=== PATIENT | female | born 1950 | race Caucasian/White ===

== ENCOUNTER 2020-06-04 06:43 | Outpatient (REF) | payer MEDICARE, MEDICAID, SELFPAY ==
[2020-06-04 09:30] LABS: Alanine Aminotransferase 31 U/L (0-31); Albumin Level 4.1 g/dL (3.5-5.0); Alkaline Phosphatase 101 U/L (39-117); Anion Gap 14 (12-20); Aspartate Amino Transferase 48 U/L (5-31); Blood Urea Nitrogen 18 mg/dL (9-16); Carbon Dioxide 29 mmol/L (22-29); Chloride 102 mmol/L (96-108); Cholesterol 114 mg/dL; Estimated Glomerular Filt Rate 30; Glucose Fasting 87 mg/dL (60-99); HDL Cholesterol 56 mg/dL; LDL Cholesterol Calculated 40 mg/dl; Sodium 141 mmol/L (135-145); Total Protein 7.3 g/dL (6.5-8.0); Triglycerides 94 mg/dL
[2020-06-04 09:50] LABS: Vitamin D 25-OH Total 51.7 ng/mL (>30)
== END 2020-06-04 06:44 | disposition home or self-care (01) ==
LOC: HO.LAB 06:43
PROVIDERS: Absent Provider Internal Medicine; PCP Internal Medicine; Visit Provider Internal Medicine Medical Oncology
DX: I15.1 Hypertension secondary to other renal disorders (principal); E78.00 Pure hypercholesterolemia, unspecified; E55.9 Vitamin D deficiency, unspecified; C18.9 Malignant neoplasm of colon, unspecified
CPT/HCPCS: 36415; 80053; 80061; 82306; 82378; 85025

== ENCOUNTER 2020-06-05 16:07 | Outpatient (REF) | payer MEDICARE, MEDICAID, SELFPAY ==
--- NOTE | 2020-06-05 16:13 | MM_ITS ---
EXAMINATION: MM SCREENING DIGITAL BREAST TOMOSYNTHESIS, BILATERAL CLINICAL INFORMATION: Screening. Asymptomatic. The lifetime risk of breast cancer based on the Tyrer-Cuzick Model is unable to be calculated due to lack of complete information. COMPARISON: Mammography: 10/14/18, 10/13/17, 10/09/16, 10/26/15 TECHNIQUE: Digital breast tomosynthesis is performed in both the craniocaudal and mediolateral oblique views along with computer-aided detection (CAD). Synthesized 2D images are generated from the tomosynthesis. FINDINGS: The breasts are heterogeneously dense, which may obscure small masses (ACR BI-RADS breast composition Category c). Right breast: There is no suspicious mass. No architectural distortion. No suspicious calcification. Left breast: There is a 1.2 cm equal density mass with 2 coarse calcifications immediately behind the left nipple. No suspicious interval change. No new suspicious left breast finding MM/MM tomosynthesis screening BI IMPRESSION: No mammographic evidence of malignancy. No suspicious interval change ASSESSMENT: BI-RADS 2: Benign RECOMMENDATION: Routine annual mammography screening. This patient's information was entered into a reminder system with a target due date for their next mammogram.
== END 2020-06-05 16:08 | disposition home or self-care (01) ==
LOC: HO.MAMMO 16:07
PROVIDERS: PCP Internal Medicine; Visit Provider Internal Medicine
DX: Z12.31 Encounter for screening mammogram for malignant neoplasm of breast (principal)
CPT/HCPCS: 77063; 77067

== ENCOUNTER 2020-10-04 09:19 | Outpatient (REF) | payer MEDICARE, MEDICAID, SELFPAY ==
--- NOTE | ~2020-10-04 | FL_ITS ---
EXAMINATION: XR PORT INJECTION WITH RADIOLOGICAL SUPERVISION AND INTERPRETATION CLINICAL INFORMATION: Port check COMPARISON: March 09, 2018 TECHNIQUE: Port catheter injection FINDINGS: Informed consent was obtained from the patient prior to the procedure. During this process, the procedure and potential alternatives were explained, along with the intended outcome and benefits. The risks of the procedure, as well as the risk of not doing the procedure, were discussed. The patient was given the opportunity to ask questions regarding the procedure and appeared competent to make medical decisions. A signed consent form which documents this discussion was placed in the medical record. . Using sterile technique a Aracelis needle was placed into the right internal jugular port catheter reservoir. Blood aspirated freely without evidence of occlusion. The port catheter was then flushed with 8 mL of heparinized saline at a concentration of 100 units of heparin per milliliter. FL/FL cva device check w fluoro IMPRESSION: Right internal jugular port check demonstrating catheter having good blood return.
== END 2020-10-04 09:20 | disposition home or self-care (01) ==
LOC: HO.XRAY 09:19
PROVIDERS: PCP Internal Medicine; Visit Provider Internal Medicine Medical Oncology
DX: Z45.2 Encounter for adjustment and management of vascular access device (principal)
CPT/HCPCS: 36598

== ENCOUNTER 2020-12-06 07:09 | Outpatient (REF) | payer MEDICARE, MEDICAID, SELFPAY ==
[2020-12-06 08:41] LABS: MANUAL DIFF FLAG NO
[2020-12-06 08:44] LABS: Basophils Absolute Auto 0.1 X10*3/uL (0.0-0.2); Basophils Percent Auto 0.9 % (0-2); Eosinophils Absolute Auto 0.6 X10*3/uL (0.0-0.4); Eosinophils Percent Auto 11.2 % (0-4); Hemoglobin 12.1 g/dl (12.0-16.0); Imm Gran Abs Auto 0.01 X10*3/uL (0.00-0.03); Imm Gran Pct Auto 0.2 % (0.0-0.4); Lymphocytes Absolute Auto 1.5 X10*3/uL (1.2-4.9); Lymphocytes Percent Auto 25.4 % (20-40); Mean Corpuscular HGB Conc 32.7 g/dl (31.0-35.0); Mean Corpuscular Hemoglobin 30.8 pg (27.0-33.0); Mean Corpuscular Volume 94.1 fL (80-98); Mean Platelet Volume 11.1 fL (9.4-12.3); Monocytes Absolute Auto 0.6 X10*3/uL (0.1-1.2); Monocytes Percent Auto 10.7 % (2-11); Neutrophils Percent Auto 51.6 % (45-73); Platelet Count 165 X10*3/uL (160-400); Red Blood Count 3.93 X10*6/uL (4.20-5.50); Red Cell Distribution Width 13.2 % (11.0-16.0); White Blood Count 5.7 X10*3/uL (4.8-10.8)
[2020-12-06 09:15] LABS: Alanine Aminotransferase 11 U/L (0-31); Albumin Level 3.8 g/dL (3.5-5.0); Alkaline Phosphatase 67 U/L (39-117); Anion Gap 13 (12-20); Aspartate Amino Transferase 18 U/L (5-31); Blood Urea Nitrogen 13 mg/dL (9-16); Calcium 9.1 mg/dL (8.4-10.2); Carbon Dioxide 30 mmol/L (22-29); Chloride 103 mmol/L (96-108); Cholesterol 101 mg/dL; Estimated Glomerular Filt Rate 27; Glucose Random 102 mg/dL (60-115); HDL Cholesterol 55 mg/dL; LDL Cholesterol Calculated 36 mg/dl; Potassium 2.8 mmol/L (3.3-5.1); Sodium 143 mmol/L (135-145); Total Protein 6.7 g/dL (6.5-8.0); Triglycerides 52 mg/dL
== END 2020-12-06 07:10 | disposition home or self-care (01) ==
LOC: HO.LAB 07:09
PROVIDERS: Internal Medicine Medical Oncology; PCP Internal Medicine; Visit Provider Internal Medicine
DX: C18.9 Malignant neoplasm of colon, unspecified (principal); E78.00 Pure hypercholesterolemia, unspecified; E78.5 Hyperlipidemia, unspecified
CPT/HCPCS: 36415; 80053; 80061; 82378; 85025

== ENCOUNTER → 2021-02-21 08:52 | Outpatient (BNVA) | payer MEDICARE, MEDICAID, SELFPAY | PROVIDERS: PCP Internal Medicine; Visit Provider Internal Medicine | DX: I48.19 Other persistent atrial fibrillation (principal); I25.10 Atherosclerotic heart disease of native coronary artery without angina pectoris; I35.8 Other nonrheumatic aortic valve disorders; I10 Essential (primary) hypertension; E78.00 Pure hypercholesterolemia, unspecified | CPT/HCPCS: 99212 ==

== ENCOUNTER 2021-02-26 15:48 | Outpatient (REF) | payer MEDICARE, MEDICAID, SELFPAY ==
--- NOTE | ~2021-02-26 | US_ITS ---
EXAMINATION: US VENOUS ULTRASOUND WITH DOPPLER LOWER EXTREMITY, LEFT CLINICAL INFORMATION: Left ankle and foot swelling. COMPARISON: None TECHNIQUE: Ultrasound of the deep veins is performed from the hip to the calf with compression sonography and color and pulse Doppler assessment. Spectral analysis with color-flow imaging is performed. FINDINGS: There is normal venous compression and respiratory variation and augmented flow. The visualized common femoral vein, superficial femoral vein, profunda femoral vein, popliteal vein, and the trifurcation region shows no evidence of deep venous thrombosis. There is no significant popliteal fossa cyst. US/US venous duplex LE LT IMPRESSION: No DVT demonstrated in the left lower extremity.
--- NOTE | ~2021-02-26 | XR_ITS ---
EXAMINATION: XR FOOT, LEFT CLINICAL INFORMATION: Other specific soft tissue disorders. COMPARISON: None. TECHNIQUE: AP, lateral, and oblique views of the left foot. FINDINGS: Mild degenerative spurring at the dorsal midfoot. No acute fracture or dislocation. No lytic or blastic osseous lesion. Plantar calcaneal spur. 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 Plantar calcaneal spur.
== END 2021-02-26 15:49 | disposition home or self-care (01) ==
LOC: HO.US 15:48
PROVIDERS: PCP Internal Medicine; Visit Provider Nurse Practitioner Family
DX: R60.0 Localized edema (principal); M79.89 Other specified soft tissue disorders; M25.472 Effusion, left ankle
CPT/HCPCS: 73620; 93971

== ENCOUNTER → 2021-02-27 07:05 | Outpatient (REF) | payer MEDICARE, MEDICAID, SELFPAY ==
--- NOTE | 2021-02-27 07:12 | CA_ITS ---
Transthoracic Echocardiogram Patient (Last, First, Middle): Tonya Nieves, Gender: Female Date of : 1950 Age: 70 Procedure Date: 02/27/2021 Procedure Type: Transthoracic Echocardiogram Location: OP Height: 149.86 cm Weight: 42.64 kg BSA: 1.34 m2 Heart Rate: bpm BP: 120 / 60 mmHg Marketing Traffic Coordinator: ANDRE Referring MD: Sav Juarez MD Symptoms: I48.19 - Other persistent atrial fibrillation Study Quality: Good Conclusions: - 1. Normal LV systolic function 2. Moderate biatrial enlargement 3. Calcific aortic valve changes noted with mild aortic regurgitation probably early mild aortic stenosis 4. Moderate mitral and calcification next 5. Borderline RV systolic pressure 6. No gross pericardial effusion Findings Left Ventricle Normal left ventricular size, thickness, and systolic function. The visually estimated ejection fraction is between 60-65%. Diastolic function is indeterminate on the basis of available data. Right Ventricle Normal right ventricular cavity size and systolic function. Atria The left atrium is moderately dilated. There is no evidence of interatrial shunt. The right atrium is moderately dilated. Aortic Valve There is mild calcification of the aortic valve. There is moderate thickening of the aortic valve. There is mild aortic valve regurgitation. Mitral Valve There is mild anterior and posterior mitral leaflet thickening. There is moderate mitral annular calcification. There is trace mitral valve regurgitation. There is no mitral valve stenosis. Pulmonic Valve The pulmonic valve was not well visualized. Tricuspid Valve Likely normal tricuspid valve structure and function. There is mild tricuspid valve regurgitation. There is no evidence of pulmonary hypertension. Great Vessels All visible segments of the aorta are normal in size. Venous The inferior vena cava is normal in size and collapses greater than 50% with inspiration. Pericardium/Pleural There is no evidence of pericardial effusion. Prior Study Comparison Changes noted compared to prior study dated: 06/01/2018. Patient in atrial fibrillation on this study. Measurements 2D Linear Measurements IVSd: 0.93 0.6-0.9/0.6-1.0 cm LVIDd: 3.61 3.9-5.3/4.2-5.9 cm LVIDd Index: 2.69 2.4-3.2/2.2-3.1 cm/m2 LVIDs: 2.18 2.0-3.6 cm LVPWd: 0.91 0.7-1.1 cm Ao Root: 3.00 2.1-3.5 cm LA Diam: 3.20 2.7-3.8/3.0-4.0 cm LAIDs Index: 2.39 1.5-2.3 cm/m2 LV Mass: 119.61 67-162/88-224 g LV Mass Index: 89.26 43-95/49-115 g/m2 LVOT Diam: 1.90 3.0+(-)1.3 cm 2D Systolic Function EF 4C: 60.50 >55% EF 2C: 66.50 >55% EF BiP: 64.50 >55% Aortic Valve AoV Pk Hugo: 1.82 AoV Mn Hugo: 1.34 AoV VTI: 0.40 AoV Pk Grad: 13.00 Aov Mn Grad: 8.00 SHARON Cont.VTI: 1.35 AI Pk Hugo: 4.00 AI [place]: 2.73 LVOT LVOT Pk Hugo: 0.86 LVOT Mn Hugo: 0.62 LVOT VTI: 0.19 LVOT Pk Grad: 3.00 LVOT Mn Grad: 2.00 LVOT Diam: 1.90 LVOT Area: 2.84 Right Ventricle TAPSE (mm): 1.65 TVS' Hugo: 8.27 Tricuspid Valve TR Pk Hugo: 3.00 TR Pk Grad: 36.00 RA Press: 3.00 RVSP: 39.00 Great Vessels Aorta Ao Root-2D: 3.00 2.0-3.7 cm Ao Asc: 3.00 2.1-3.4 cm Updated in Other Vendor System with Status of Final Duane Campos MD electronically signed on 03/01/2021 9:19:16 AM with status of Final
--- NOTE | 2021-02-27 07:12 | HM_ITS ---
Total monitoring time 2 days and 17 hours. Underlying rhythm is atrial fibrillation. Min heart rate 79/Min. Maximum 138/min. Average 98/Min. About 23% of the time, rate greater than 100/Min. No AV blocks or pauses. Very rare PVCs. No patient events. Less than optimal rate control of atrial fibrillation. MTDD
== END ==
LOC: HO.CARD 07:05
PROVIDERS: PCP Internal Medicine; Visit Provider Internal Medicine
DX: I48.19 Other persistent atrial fibrillation (principal)
CPT/HCPCS: 93242; 93306

== ENCOUNTER 2021-03-16 02:36 | Emergency (ER) | payer MEDICARE, MEDICAID, SELFPAY ==
[2021-03-16 02:50] VITALS: BP 164/98; PULSE 105; RESP 18; TEMP 36; O2SAT 97; BMI 19.1
--- NOTE | 2021-03-16 03:18 | ED.GENADULT ---
HPI - General Adult General Chief complaint: Extremity Injury, Lower Stated complaint: Foot swelling Time Seen by Provider: 03/16/21 03:18 Source: patient and family Mode of arrival: ambulatory Limitations: no limitations History of Present Illness HPI narrative: Patient's history of gout used to be on allopurinol which was stopped about 6 months ago because of CKD with creatinine of 1.8 since then patient had 2 episodes of gouty arthritis today she comes with same pain started on the right greater toe started 3 days ago. Has some swelling of the right foot and pain no fever no chills no skin changes Related Data Home Medications Medication Instructions Recorded Confirmed calcitriol 0.25 mcg capsule 0.25 mcg PO DIRECTED 06/04/20 02/26/21 famotidine 20 mg tablet 20 mg PO DIRECTED 06/04/20 02/26/21 ergocalciferol (vitamin D2) 1,250 1,250 mcg PO QWEEK 10/17/20 02/26/21 mcg (50,000 unit) capsule Previous Rx's Medication Instructions Recorded amlodipine 5 mg tablet 5 mg PO DAILY #90 tab 07/28/20 metoprolol tartrate 50 mg tablet 50 mg PO BID 90 Days #180 tab 08/20/20 thiamine HCl (vitamin B1) 100 mg 50 mg PO DAILY 90 Days #45 tab 12/20/20 tablet rosuvastatin 10 mg tablet 10 mg PO DAILY #30 tab 01/18/21 donepezil 5 mg tablet 5 mg PO BEDTIME #90 tab 01/23/21 apixaban 2.5 mg tablet (Eliquis) 2.5 mg PO BID 90 Days #180 tab 02/21/21 prednisone 20 mg tablet 20 mg PO DAILY 5 Days #5 tab 02/26/21 diclofenac sodium 3 % topical gel 1 appl TOPICAL BID #100 g 03/16/21 prednisone 20 mg tablet 40 mg PO DAILY #10 tab 03/16/21 Allergies Allergy/AdvReac Type Severity Reaction Status Date / Time NSAIDS (Non-Steroidal AdvReac Severe CONTRAINDICATED Verified 02/26/21 15:00 Anti-Inflamma DUE TO [NSAIDS (NON-STEROIDAL ANEMIA ANTI-INFLAMMA] atorvastatin [From LIPITOR] AdvReac Intermediate MUSCLE PAIN Verified 02/26/21 15:00 Review of Systems Review of Systems: Yes all other systems are reviewed and are negative PMFSH Past Medical History Medical History Asthma CKD (chronic kidney disease) Colon cancer Dementia Essential hypertension GERD (gastroesophageal reflux disease) Hypokalemia Pure hypercholesterolemia Surgical History History of bilateral cataract extraction History of laparoscopy Family History Family History Father No problems noted. Mother No problems noted. Social History Social History Housing: Apartment Alcohol intake: never Patient Tobacco Use Status: Former Tobacco user Advance Directives: No service: No Current occupational status: retired and disabled Physical Exam Vital Signs: Vital Signs: Last Vital Signs Temp 96.8 F 03/16/21 02:50 Pulse 105 H 03/16/21 02:50 Resp 18 03/16/21 02:50 BP 164/98 H 03/16/21 02:50 Pulse Ox 97 03/16/21 02:50 Body Mass Index 19.1 Appearance: Alert. Oriented X3. No acute distress. Eyes: PERRLA, No Nystagmus ENT: Pharynx normal. Oral Mucosa moist Neck: Normal inspection. Neck supple. CVS: Normal heart rate and rhythm. Pulses normal. Respiratory: No respiratory distress. Equal air entry bilateral, Abdomen: Soft and nontender. Bowel sounds are present, Skin: Skin warm and dry. Normal skin color. Normal skin turgor. Extremities: No lower extremity edema. No calf tenderness tenderness with slight soft tissue swelling left greater toe at the MTP Neuro: Oriented X 3. Discharge Plan Discharge Clinical Impression: Gouty arthritis of great toe Patient Disposition: Home, Self-Care Instructions: Gout (ED) Additional Instructions: Take prednisone as prescribed Apply diclofenac gel locally twice daily Drink plenty of fluids Follow-up with your activity coordinator for further management Prescriptions: New prednisone 20 mg tablet 40 mg PO DAILY Qty: 10 RF: 0 diclofenac sodium 3 % gel 1 appl topical BID Qty: 100 RF: 0 No Action amlodipine 5 mg tablet 5 mg PO DAILY Qty: 90 RF: 3 metoprolol tartrate 50 mg tablet 50 mg PO BID 90 Days Qty: 180 RF: 3 thiamine HCl (vitamin B1) 100 mg tablet 50 mg PO DAILY 90 Days Qty: 45 RF: 1 rosuvastatin 10 mg tablet 10 mg PO DAILY Qty: 30 RF: 0 donepezil 5 mg tablet 5 mg PO BEDTIME Qty: 90 RF: 2 famotidine 20 mg tablet 20 mg PO DIRECTED RF: 0 calcitriol 0.25 mcg capsule 0.25 mcg PO DIRECTED RF: 0 prednisone 20 mg tablet 20 mg PO DAILY 5 Days Qty: 5 RF: 0 ergocalciferol (vitamin D2) 1,250 mcg (50,000 unit) capsule 1,250 mcg PO QWEEK RF: 0 Eliquis 2.5 mg tablet 2.5 mg PO BID 90 Days Qty: 180 RF: 4
[2021-03-16] MEDS: predniSONE 20 MG TABLET 40 MG PO (03:49)
--- NOTE | 2021-03-16 03:51 | PC.NURSE ---
pt was on allupurinol and was taken off by her pcp about 7 or 8 months ago due to her ckd. About 3 or 4 days ago she started having swelling and pain to her left foot.
== END 2021-03-16 04:07 | disposition home or self-care (01) ==
PROVIDERS: Emergency Provider Internal Medicine; PCP Internal Medicine
DX: M10.071 Idiopathic gout, right ankle and foot (principal); Z79.899 Other long term (current) drug therapy
CPT/HCPCS: 99283

== ENCOUNTER → 2021-03-21 09:41 | Outpatient (BNVA) | payer MEDICARE, MEDICAID, SELFPAY | PROVIDERS: PCP Internal Medicine; Visit Provider Internal Medicine | DX: I48.19 Other persistent atrial fibrillation (principal); I25.10 Atherosclerotic heart disease of native coronary artery without angina pectoris; I35.8 Other nonrheumatic aortic valve disorders; I10 Essential (primary) hypertension | CPT/HCPCS: 99212 ==

== ENCOUNTER 2021-04-18 07:25 | Outpatient (REF) | payer MEDICARE, MEDICAID, SELFPAY ==
[2021-04-18 09:05] LABS: Appearance Urine HAZY; Color Urine YELLOW; Glucose Urine UA NEG (NEG); Leukocyte Esterase Urine 2+ (NEG); Nitrite Urine POS (NEG); PH 6.5 (5.0-8.0); Urine Blood TRACE (NEG); Urine Ketones NEG (NEG); Urine Protein 1+ MG/DL (NEG-TRACE)
[2021-04-18 09:06] LABS: Hematocrit 41.1 % (37-47); Hemoglobin 13.5 g/dl (12.0-16.0); Mean Corpuscular HGB Conc 32.8 g/dl (31.0-35.0); Mean Corpuscular Hemoglobin 31.5 pg (27.0-33.0); Mean Corpuscular Volume 95.8 fL (80-98); Mean Platelet Volume 12.1 fL (9.4-12.3); Platelet Count 174 X10*3/uL (160-400); Red Blood Count 4.29 X10*6/uL (4.20-5.50); Red Cell Distribution Width 14.4 % (11.0-16.0); White Blood Count 5.4 X10*3/uL (4.8-10.8)
[2021-04-18 09:18] LABS: Bacteria Urine 3+ /LPF
[2021-04-18 09:19] LABS: Mucus Urine 1+ /LPF; Squamous Epithelial Cell Urine 1+ /LPF
[2021-04-18 09:26] LABS: Albumin Level 3.7 g/dL (3.5-5.0); Anion Gap 14 (12-20); Blood Urea Nitrogen 16 mg/dL (9-16); Calcium 8.9 mg/dL (8.4-10.2); Carbon Dioxide 30 mmol/L (22-29); Chloride 107 mmol/L (96-108); Estimated Glomerular Filt Rate 24; Magnesium 2.1 mg/dL (1.6-2.6); Phosphorus 3.2 mg/dL (2.7-4.5); Potassium 3.6 mmol/L (3.3-5.1); Sodium 147 mmol/L (135-145)
[2021-04-18 09:28] LABS: Creatinine Urine 183.81 mg/dL; Microalbum/Creatinine Ratio Ur 94.1 ug/mg cr; Protein/Creatinine Ratio, Ur 0.31 (<0.2); Total Protein Urine Random 57 mg/dL (<12)
[2021-04-18 09:46] LABS: Vitamin D 25-OH Total 59.5 ng/mL (>30)
[2021-04-19 15:51] LABS: Calcium (PTHI) 9.2 mg/dL (8.6-10.4); PTHI 228 pg/mL (14-64)
== END 2021-04-18 07:26 | disposition home or self-care (01) ==
LOC: HO.LAB 07:25
PROVIDERS: PCP Internal Medicine; Visit Provider Internal Medicine Nephrology
DX: N18.32 Chronic kidney disease, stage 3b (principal)
CPT/HCPCS: 36415; 80051; 81001; 82040; 82043; 82306; 82310; 82565; 83735; 83970; 84100; 84156; 84520; 85027; 87086

== ENCOUNTER 2021-05-06 01:49 | Emergency (ER) | payer MEDICARE, MEDICAID, SELFPAY ==
[2021-05-06 02:22] VITALS: BP 190/95; PULSE 93; RESP 18; TEMP 36.6; O2SAT 97; BMI 17.6
[2021-05-06 02:25] VITALS: BP 190/95; PULSE 94; RESP 18; TEMP 36.6; O2SAT 97
--- NOTE | 2021-05-06 03:24 | ED_ITS ---
HPI - General Adult General Chief complaint: General Medical Stated complaint: gout on both feet Time Seen by Provider: 05/06/21 03:16 Source: family () Mode of arrival: ambulatory Limitations: no limitations History of Present Illness HPI narrative: 71-year-old female who presents emergency department for evaluation bilateral feet pain. Patient has dimension the information comes from the patient's . According to the , the patient was on allopurinol but this was discontinued secondary to her renal function. The patient has had several episodes of gout in her feet since stopping the all opurinol. Patient was last seen in the emergency department on 03/16/2021 for gout of her feet. That time she was treated with prednisone and diclofenac 3% gel. The states that the prednisone seemed to be very effective, he is continue to use the gel however he thinks this is less effective. Over the past 2 days the patient has been complaining of pain in her feet left greater than right. She is now having difficulty walking secondary to her left foot pain. She has not been ill in any other way. The patient has dementia and cannot characterize her pain. Related Data Home Medications Medication Instructions Recorded Confirmed ergocalciferol (vitamin D2) 1,250 1,250 mcg PO QWEEK 10/17/20 03/21/21 mcg (50,000 unit) capsule calcitriol 0.25 mcg capsule 0.25 mcg PO DAILY cap 03/21/21 03/21/21 famotidine 20 mg tablet 20 mg PO DAILY tab 03/21/21 03/21/21 Previous Rx's Medication Instructions Recorded donepezil 5 mg tablet 5 mg PO BEDTIME #90 tab 01/23/21 apixaban 2.5 mg tablet (Eliquis) 2.5 mg PO BID 90 Days #180 tab 02/21/21 diclofenac sodium 3 % topical gel 1 appl TOPICAL BID #100 g 03/16/21 metoprolol tartrate 50 mg tablet 75 mg PO BID 90 Days #270 tab 03/21/21 rosuvastatin 10 mg tablet 10 mg PO DAILY 90 Days #90 tab 03/21/21 thiamine HCl (vitamin B1) 100 mg 50 mg PO DAILY 90 Days #45 tab 03/26/21 tablet colchicine 0.6 mg tablet 0.6 mg PO DAILY PRN 30 Days #60 tab 04/12/21 prednisone 20 mg tablet 40 mg PO DAILY 7 Days #14 tab 05/06/21 Allergies Allergy/AdvReac Type Severity Reaction Status Date / Time NSAIDS (Non-Steroidal AdvReac Severe CONTRAINDICATED Verified 03/21/21 09:55 Anti-Inflamma DUE TO [NSAIDS (NON-STEROIDAL ANEMIA ANTI-INFLAMMA] atorvastatin [From LIPITOR] AdvReac Intermediate MUSCLE PAIN Verified 03/21/21 09:55 Review of Systems Review of Systems: Yes all other systems are reviewed and are negative [facility] Past Medical History Medical History Asthma CKD (chronic kidney disease) Colon cancer Dementia Essential hypertension GERD (gastroesophageal reflux disease) Hypokalemia Pure hypercholesterolemia Surgical History History of bilateral cataract extraction History of laparoscopy Family History Family History Father No problems noted. Mother No problems noted. Social History Social History Housing: Apartment Alcohol intake: never Patient Tobacco Use Status: Former Tobacco user Advance Directives: No Advance Directives Information Provided: Yes service: No Current occupational status: retired and disabled Physical Exam Vital Signs: Vital Signs: Last Vital Signs Temp 98 F 05/06/21 02:25 Pulse 94 05/06/21 02:25 Resp 18 05/06/21 02:25 BP 190/95 H 05/06/21 02:25 Pulse Ox 97 05/06/21 02:25 Body Mass Index 17.6 Const: Other: Very thin, awake, alert female patient, she does not appear to be in distress, she has dementia and defers to her for answers to all questions. HENMT: Head: Yes normal to inspection, Yes normocephalic and Yes atraumatic Ears: external ears normal General nose exam: Normal external nose present Face and sinus: Yes normal facial exam Mouth: Normal oral and palatal mucosa present Throat: Yes posterior oropharynx normal Eyes: General: appearance normal, both eyes and all related structures Pupils: Equal, round and reactive pupils present Neck: Neck: Yes normal visual inspection, Yes no lymphadenopathy, Yes trachea midline and Yes supple Chest: Chest palpation & inspection: normal inspection of the chest and normal palpation of entire chest wall Resp: Effort & Inspection: normal respiratory effort and able to speak in complete sentences Auscultation: clear to auscultation bilaterally Cardio: Rate: regular rate Rhythm: regular rhythm Heart sounds: S1 normal heart sound present, S2 normal heart sound present and no murmurs GI: Inspection: Yes normal to inspection Palpation (GI): Soft to palpation, nontender and no guarding Auscultation: normal bowel sounds : General: Yes no CVA tenderness Back/Spine/Pelvis: Back: no CVA tenderness Skin: General skin exam: no rashes or lesions noted Neuro: Cranial nerves: Yes CN's II-XII intact bilaterally and Yes Equal, round and reactive pupils present Motor exam (neuro): 5/5 motor strength present throughout Extrem: Other: Patient has localized swelling and erythema to the ventral aspect of her foot over the 1st through 5th metatarsal region, this area is very tender to palpation. Psych: Appearance: grossly normal Speech and movement: Normal speech and movement present Affect: normal affect Attitude: cooperative Course Course Course Narrative: 71-year-old female with a history of dementia and gout presents emergency department for evaluation of 2 days of bilateral foot pain left greater than right. Patient's vital signs did reveal an elevated blood pressure of 190/95 otherwise were unremarkable. The patient's exam is consi stent with gout of the left foot. The patient was successfully treated in the past with prednisone. The patient was given prednisone 40 mg orally. She was started on prednisone 40 mg once a day for 7 days. She was also given Tylenol here in the emergency department. The patient will be discharged home in the care of her with verbal and printed instructions. Discharge Plan Discharge Clinical Impression: Gout Qualifiers: Gout site: foot Gout etiology: idiopathic Chronicity: acute Laterality: left Qualified Code(s): M10.072 - Idiopathic gout, left ankle and foot Patient Disposition: Home, Self-Care Instructions: Gout (ED) Additional Instructions: Take prednisone 20 mg pills, 2 pills once a day for 7 days. Take Tylenol (acetaminophen) 500 mg pills, 2 pills every 4 to 6 hours as needed for pain. Follow-up with your doctor in 2 days. Please return to the emergency department if your symptoms get worse or if you develop any symptoms that are concerning to you. Prescriptions: New prednisone 20 mg tablet 40 mg PO DAILY 7 Days Qty: 14 RF: 0 No Action donepezil 5 mg tablet 5 mg PO BEDTIME Qty: 90 RF: 2 rosuvastatin 10 mg tablet 10 mg PO DAILY 90 Days Qty: 90 RF: 3 thiamine HCl (vitamin B1) 100 mg tablet 50 mg PO DAILY 90 Days Qty: 45 RF: 1 colchicine 0.6 mg tablet 0.6 mg PO DAILY PRN (Reason: acute gout) 30 Days Qty: 60 RF: 0 calcitriol 0.25 mcg capsule 0.25 mcg PO DAILY RF: 0 famotidine 20 mg tablet 20 mg PO DAILY RF: 0 diclofenac sodium 3 % gel 1 appl topical BID Qty: 100 RF: 0 ergocalciferol (vitamin D2) 1,250 mcg (50,000 unit) capsule 1,250 mcg PO QWEEK RF: 0 Eliquis 2.5 mg tablet 2.5 mg PO BID 90 Days Qty: 180 RF: 4 metoprolol tartrate 50 mg tablet 75 mg PO BID 90 Days Qty: 270 RF: 3
[2021-05-06] MEDS: Acetaminophen 325 MG TABLET 975 MG PO (03:47)
== END 2021-05-06 03:58 | disposition home or self-care (01) ==
PROVIDERS: Emergency Provider Emergency Medicine Emergency Medical Services
DX: M10.072 Idiopathic gout, left ankle and foot (principal); Z79.899 Other long term (current) drug therapy
CPT/HCPCS: 99283; 99284

== ENCOUNTER 2021-06-04 03:52 | Emergency (ER) | payer MEDICARE, MEDICAID, SELFPAY ==
--- NOTE | 2021-06-04 04:07 | ED_ITS ---
HPI - General Adult General Chief complaint: Extremity Injury, Upper Stated complaint: R Arm pain Time Seen by Provider: 06/04/21 03:55 Source: patient and family Mode of arrival: ambulatory Limitations: no limitations History of Present Illness HPI narrative: Patient comes emergency room accompanied by her conference services coordinator, complaining of right elbow pain. Patient is known to have multiple gout flares. Patient complaining of couple of days elbow pain. No fever chills. Patient denies trauma. Per conference services coordinator, patient is taking daily allopurinol. Related Data Home Medications Medication Instructions Recorded Confirmed ergocalciferol (vitamin D2) 1,250 1,250 mcg PO QWEEK 10/17/20 05/30/21 mcg (50,000 unit) capsule calcitriol 0.25 mcg capsule 0.25 mcg PO DAILY cap 03/21/21 05/30/21 famotidine 20 mg tablet 20 mg PO DAILY tab 03/21/21 05/30/21 allopurinol 100 mg tablet mg PO 05/30/21 05/30/21 amlodipine 5 mg tablet mg PO 05/30/21 05/30/21 Previous Rx's Medication Instructions Recorded donepezil 5 mg tablet 5 mg PO BEDTIME #90 tab 01/23/21 apixaban 2.5 mg tablet (Eliquis) 2.5 mg PO BID 90 Days #180 tab 02/21/21 metoprolol tartrate 50 mg tablet 75 mg PO BID 90 Days #270 tab 03/21/21 rosuvastatin 10 mg tablet 10 mg PO DAILY 90 Days #90 tab 03/21/21 thiamine HCl (vitamin B1) 100 mg 50 mg PO DAILY 90 Days #45 tab 03/26/21 tablet colchicine 0.6 mg tablet 0.3 mg PO DAILY #1 tab 06/04/21 prednisone 20 mg tablet 40 mg PO DAILY #5 tab 06/04/21 Allergies Allergy/AdvReac Type Severity Reaction Status Date / Time NSAIDS (Non-Steroidal AdvReac Severe CONTRAINDICATED Verified 05/30/21 08:46 Anti-Inflamma DUE TO [NSAIDS (NON-STEROIDAL ANEMIA ANTI-INFLAMMA] atorvastatin [From LIPITOR] AdvReac Intermediate MUSCLE PAIN Verified 05/30/21 08:46 Review of Systems Review of Systems: Constitutional : No Weight loss, No Fever, No Chills, No Night Sweats, No Fatigue, No Malaise ENT/Mouth : No Hearing loss, No Ear Pain, No Nasal Congestion, No Sinus Pain, No Hoarseness, No sore throat, No Rhinorrhea, No Swallowing Difficulty Eyes: No Eye Pain, No Swelling, No Redness, No Foreign Body, No Discharge, No Vision Changes Cardiovascular : No Chest Pain, No SOB, No Dyspnea on Exertion, No Orthopnea, No Edema, No Palpitations Respiratory : No Cough, No Sputum, No Wheezing, No Smoke Exposure, No Dyspnea Gastrointestinal : No Nausea, No Vomiting, No Diarrhea, No Constipation, No abdominal Pain, No Hematochezia, No Melena Genitourinary : no irregular bleeding, No Dysuria, No Urinary Frequency, No Hematuria, No Urinary Incontinence, No Urgency, No Flank Pain, No Urinary Flow Changes, No Hesitancy Musculoskeletal : Complaining of right elbow pain No Myalgias, No Joint Swelling Skin : No Skin Lesions, No rash Neuro : No Weakness, No Numbness, No Paresthesias, No Loss of Consciousness, No Dizziness, No Headache Psych : No Anxiety/Panic, No Depression, No SI/HI/AH/VH, No Social Issues, Heme/Lymph: No Bruising, No Bleeding,No Lymphadenopathy Endocrine : No Polyuria, No Polydipsia, No Temperature Intolerance PMFSH Past Medical History Medical History Asthma CKD (chronic kidney disease) Colon cancer Dementia Essential hypertension GERD (gastroesophageal reflux disease) Hypokalemia Pure hypercholesterolemia Surgical History History of bilateral cataract extraction History of laparoscopy Family History Family History Father No problems noted. Mother No problems noted. Social History Social History Housing: Apartment Alcohol intake: never Patient Tobacco Use Status: Former Tobacco user e-Cigarette/Vaping Use: Never Used Second Hand Smoke Exposure: No Advance Directives: No service: No Current occupational status: retired and disabled Physical Exam Vital Signs: Vital Signs: Last Vital Signs Temp 97.0 F 06/04/21 04:10 Pulse 108 H 06/04/21 04:10 Resp 22 H 06/04/21 04:10 BP 150/99 H 06/04/21 04:10 Pulse Ox 98 06/04/21 04:10 BMI result Body Mass Index 17.7 Const: Other: Appearance: Alert. Oriented X3. No acute distress. Well- appearing Eyes: Pupils equal, round and reactive to light. ENT: Pharynx normal. Neck: Normal inspection. Neck supple. No lymph nodes noted. No crepitus CVS: Normal heart rate and rhythm. Pulses normal. Normal S1 and S2 Respiratory: No respiratory distress. Breath sounds normal. No Wheezing. No rales Abdomen: Soft and nontender. No rigidity. No distention. good BS x4 Skin: Skin warm and dry. Normal skin color. Normal skin turgor. Extremities: No lower extremity edema. Patient complaining of right elbow pain to touch. There is no erythema, no effusions, able to move/flex/ extend the elbow Neuro: Oriented X 3. No motor deficit. No sensory deficit. Moving all extermities. No slurred speech. Course Course Course Narrative: I discussed with the patient and her conference services coordinator that we will go ahead and give her 1 dose of colchicine and also prednisone. The main treatment will be prednisone due to the patient's history of chronic kidney disease. Patient was given 1 dose of 60 mg of prednisone p.o. in the emergency room. We do not have colchicine at this time, as prescription was sent to the pharmacy for a 1 time dose of colchicine. Discharge Plan Discharge Clinical Impression: Acute gout of elbow Qualifiers: Gout etiology: unspecified cause Laterality: right Qualified Code(s): M10.9 - Gout, unspecified Patient Disposition: Home, Self-Care Instructions: Gout (ED) Additional Instructions: Please follow-up with your primary care physician tomorrow. If you have any worsening or new symptoms, please return to the emergency room or call 911 Prescriptions: New prednisone 20 mg tablet 40 mg PO DAILY Qty: 5 RF: 0 colchicine 0.6 mg tablet 0.3 mg PO DAILY Qty: 1 RF: 0 No Action donepezil 5 mg tablet 5 mg PO BEDTIME Qty: 90 RF: 2 rosuvastatin 10 mg tablet 10 mg PO DAILY 90 Days Qty: 90 RF: 3 thiamine HCl (vitamin B1) 100 mg tablet 50 mg PO DAILY 90 Days Qty: 45 RF: 1 calcitriol 0.25 mcg capsule 0.25 mcg PO DAILY RF: 0 famotidine 20 mg tablet 20 mg PO DAILY RF: 0 allopurinol 100 mg tablet PO RF: 0 amlodipine 5 mg tablet PO RF: 0 ergocalciferol (vitamin D2) 1,250 mcg (50,000 unit) capsule 1,250 mcg PO QWEEK RF: 0 Eliquis 2.5 mg tablet 2.5 mg PO BID 90 Days Qty: 180 RF: 4 metoprolol tartrate 50 mg tablet 75 mg PO BID 90 Days Qty: 270 RF: 3
[2021-06-04 04:10] VITALS: BP 150/99; PULSE 108; RESP 22; TEMP 36.1; O2SAT 98; BMI 17.7
[2021-06-04] MEDS: predniSONE 20 MG TABLET 60 MG PO (04:22)
[2021-06-04 04:30] VITALS: BP 162/89; PULSE 98; RESP 14; TEMP 36.4; O2SAT 96
--- NOTE | 2021-06-04 04:39 | PC.NURSE ---
medicated per Mar. reviewed discharge instructions and medication. Instructions to follow up with Primary
== END 2021-06-04 04:43 | disposition home or self-care (01) ==
PROVIDERS: Emergency Provider Emergency Medicine; PCP Internal Medicine
DX: M10.9 Gout, unspecified (principal); Z87.891 Personal history of nicotine dependence; Z79.899 Other long term (current) drug therapy
CPT/HCPCS: 99283; 99284

== ENCOUNTER 2021-06-06 12:01 | Emergency (ER) | payer MEDICARE, MEDICAID, SELFPAY ==
--- NOTE | ~2021-06-06 | XR_ITS ---
EXAMINATION: XR ELBOW, RIGHT CLINICAL INFORMATION: Right elbow pain COMPARISON: Right elbow pain TECHNIQUE: Four views of the right elbow. FINDINGS: No fracture or dislocation. Alignment is anatomic. Joint spaces are maintained. No elbow joint effusion. Scattered vascular calcifications. XR/XR elbow RT min 3V IMPRESSION: Normal right elbow.
[2021-06-06 12:29] VITALS: BP 127/85; PULSE 95; RESP 18; TEMP 36.7; O2SAT 98; BMI 17.7
--- NOTE | 2021-06-06 13:45 | ED.EXTPRO ---
HPI - Extremity Problem General Chief complaint: Extremity Injury, Upper Stated complaint: elbow pain Time Seen by Provider: 06/06/21 13:45 Source: patient Limitations: no limitations History of Present Illness HPI Narrative: Patient presents with atraumatic right elbow pain. Patient was evaluated on November 02 diagnosed with acute gouty arthritis which she has a past history of. Patient was recently taken off allopurinol secondary to kidney function but her aquarium specialist put her back on help ear canal. Patient was discharged home on colchicine and prednisone from her prior visit. Patient seems of pain with noted any recent trauma. Pain increases with range of motion of the right elbow. No fevers chills shortness of breath no other complaints at this time. Related Data Home Medications Medication Instructions Recorded Confirmed ergocalciferol (vitamin D2) 1,250 1,250 mcg PO QWEEK 10/17/20 05/30/21 mcg (50,000 unit) capsule calcitriol 0.25 mcg capsule 0.25 mcg PO DAILY cap 03/21/21 05/30/21 famotidine 20 mg tablet 20 mg PO DAILY tab 03/21/21 05/30/21 allopurinol 100 mg tablet mg PO 05/30/21 05/30/21 amlodipine 5 mg tablet mg PO 05/30/21 05/30/21 Previous Rx's Medication Instructions Recorded donepezil 5 mg tablet 5 mg PO BEDTIME #90 tab 01/23/21 apixaban 2.5 mg tablet (Eliquis) 2.5 mg PO BID 90 Days #180 tab 02/21/21 metoprolol tartrate 50 mg tablet 75 mg PO BID 90 Days #270 tab 03/21/21 rosuvastatin 10 mg tablet 10 mg PO DAILY 90 Days #90 tab 03/21/21 thiamine HCl (vitamin B1) 100 mg 50 mg PO DAILY 90 Days #45 tab 03/26/21 tablet colchicine 0.6 mg tablet 0.3 mg PO DAILY #1 tab 06/04/21 prednisone 20 mg tablet 40 mg PO DAILY #5 tab 06/04/21 tramadol 50 mg tablet 50 mg PO BID PRN #10 tab 06/06/21 Allergies Allergy/AdvReac Type Severity Reaction Status Date / Time NSAIDS (Non-Steroidal AdvReac Severe CONTRAINDICATED Verified 05/30/21 08:46 Anti-Inflamma DUE TO [NSAIDS (NON-STEROIDAL ANEMIA ANTI-INFLAMMA] atorvastatin [From LIPITOR] AdvReac Intermediate MUSCLE PAIN Verified 05/30/21 08:46 Review of Systems Constitutional: Constitutional: Denies chills, Denies fever(s) and Denies headache(s) ENT: Denies headache(s) Cardiovascular: Cardiovascular: Denies chest pain Respiratory: Respiratory: Denies cough and Denies pain with cough Gastrointestinal: Gastrointestinal: Denies nausea and Denies vomiting Musculoskeletal: Comments: Right elbow pain Neurologic: Denies headache(s) [facility] Past Medical History Source: obtained from family Medical History Asthma CKD (chronic kidney disease) Colon cancer Dementia Essential hypertension GERD (gastroesophageal reflux disease) Hypokalemia Pure hypercholesterolemia Surgical History History of bilateral cataract extraction History of laparoscopy Family History Family History Father No problems noted. Mother No problems noted. Social History Social History Housing: Apartment Alcohol intake: never Patient Tobacco Use Status: Former Tobacco user e-Cigarette/Vaping Use: Never Used Second Hand Smoke Exposure: No Advance Directives: No Advance Directives Information Provided: No service: No Current occupational status: retired and disabled Physical Exam Vital Signs: Vital Signs: Last Vital Signs Temp 98.0 F 06/06/21 12:29 Pulse 95 06/06/21 12:29 Resp 18 06/06/21 12:29 BP 127/85 06/06/21 12:29 Pulse Ox 98 06/06/21 12:29 BMI result Body Mass Index 17.7 vital signs have been reviewed as normal and appeared to be correct. Blood pressure normal. Heart rate normal. Respiration rate normal. Temperature normal. Oxygen saturation normal. Appearance: Alert. No acute distress. Head: Normal external exam. Normocephalic. Atraumatic. Eyes: PERRLA. EOMI. Conjunctiva and sclera normal. Eyelids normal. ENT: Pharynx normal. Uvula midline. Moist mucous membranes. Neck: Soft full range of motion, no JVD CVS: Heart regular rate and rhythm no murmurs and rubs Respiratory: Breath sounds are clear to auscultation bilaterally. No accessory muscle use noted. Abdomen: Soft nontender no rebound or guarding positive bowel sounds Back Full range of motion noted. Skin: Right elbow no sign of erythema or induration no rashes ecchymosis noted Extremities: Positive tenderness lateral epicondyle right up ball and electron no obvious edema noted positive range of motion Neuro: Patient is alert at baseline has longstanding history of dementia Course Course Course Narrative: Right elbow bursitis Gouty arthritis Olecranon bursitis Will recommend to continue current medications of colchicine and prednisone. Mass pat reviewed no issues noted Plan to place patient in sling short course of tramadol for pain MDM - Extremity (Nontraumatic) Imaging Data elbow: Radiologist's impression: [address] [address] XRay Report Signed Patient: Tonya Nieves MR#: [id number] : 1950 Acct:[id number] Age/Sex: 71 / F ADM Date: 06/06/21 Loc: .ED Attending Dr: Ordering Physician: Generic ED Physician Date of Service: 06/06/21 Procedure(s): XR elbow RT min 3V Accession Number(s): [id number] cc: Generic ED Physician~ EXAMINATION: XR ELBOW, RIGHT CLINICAL INFORMATION: Right elbow pain? COMPARISON: Right elbow pain? TECHNIQUE: Four views of the right elbow. FINDINGS: No fracture or dislocation. Alignment is anatomic. Joint spaces are maintained. No elbow joint effusion. Scattered vascular calcifications. ? XR/XR elbow RT min 3V IMPRESSION: Normal right elbow. Dictated By: Lan Hinton MD Signed By: <Electronically signed by Lan Hinton MD in OV> 06/06/21 1328 DD/ 1317 TD/TT:? 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: Discharge Plan Discharge Clinical Impression: Gouty arthritis Patient Disposition: Home, Self-Care Instructions: Low Purine Diet (ED), Gout (ED) Additional Instructions: Symptoms are consistent with gouty arthritis Continue current medications that were prescribed from the last visit New medications as directed for pain Call follow-up with PCP Prescriptions: New tramadol 50 mg tablet 50 mg PO BID PRN (Reason: pain) Qty: 10 RF: 0 No Action donepezil 5 mg tablet 5 mg PO BEDTIME Qty: 90 RF: 2 rosuvastatin 10 mg tablet 10 mg PO DAILY 90 Days Qty: 90 RF: 3 thiamine HCl (vitamin B1) 100 mg tablet 50 mg PO DAILY 90 Days Qty: 45 RF: 1 calcitriol 0.25 mcg capsule 0.25 mcg PO DAILY RF: 0 famotidine 20 mg tablet 20 mg PO DAILY RF: 0 prednisone 20 mg tablet 40 mg PO DAILY Qty: 5 RF: 0 colchicine 0.6 mg tablet 0.3 mg PO DAILY Qty: 1 RF: 0 allopurinol 100 mg tablet PO RF: 0 amlodipine 5 mg tablet PO RF: 0 ergocalciferol (vitamin D2) 1,250 mcg (50,000 unit) capsule 1,250 mcg PO QWEEK RF: 0 Eliquis 2.5 mg tablet 2.5 mg PO BID 90 Days Qty: 180 RF: 4 metoprolol tartrate 50 mg tablet 75 mg PO BID 90 Days Qty: 270 RF: 3 Referrals: Karolina Schafer MD [Primary Care Provider] - 2 days
[2021-06-06] MEDS: traMADoL HCL 50 MG TABLET PO (14:17)
== END 2021-06-06 14:26 | disposition home or self-care (01) ==
PROVIDERS: Emergency Provider Emergency Medicine; PCP Internal Medicine
DX: M10.021 Idiopathic gout, right elbow (principal); M25.521 Pain in right elbow; I12.9 Hypertensive chronic kidney disease with stage 1 through stage 4 chronic kidney disease, or unspecified chronic kidney disease; N18.4 Chronic kidney disease, stage 4 (severe); I48.19 Other persistent atrial fibrillation; E78.00 Pure hypercholesterolemia, unspecified; Z79.01 Long term (current) use of anticoagulants; Z79.02 Long term (current) use of antithrombotics/antiplatelets; Z79.899 Other long term (current) drug therapy
CPT/HCPCS: 73080; 99283

== ENCOUNTER → 2021-06-24 09:53 | Outpatient (BNVA) | payer MEDICARE, MEDICAID, SELFPAY | PROVIDERS: PCP Internal Medicine; Referring Provider Internal Medicine; Visit Provider Internal Medicine | DX: I48.19 Other persistent atrial fibrillation (principal); I25.10 Atherosclerotic heart disease of native coronary artery without angina pectoris; I35.8 Other nonrheumatic aortic valve disorders; I10 Essential (primary) hypertension | CPT/HCPCS: 99212 ==

== ENCOUNTER 2021-07-08 09:44 | Outpatient (REF) | payer MEDICARE, MEDICAID, SELFPAY ==
--- NOTE | ~2021-07-08 | MM_ITS ---
EXAMINATION: MM SCREENING DIGITAL BREAST TOMOSYNTHESIS, BILATERAL CLINICAL INFORMATION: Screening. Asymptomatic. COMPARISON: Mammography: 06/05/2020, 10/14/2018, 10/13/2017 TECHNIQUE: Digital breast tomosynthesis is performed in both the craniocaudal and mediolateral oblique views along with computer-aided detection (CAD). Synthesized 2D images are generated from the tomosynthesis. Examination tailored to patient capabilities. 2 technologists required for positioning. FINDINGS: The breasts are heterogeneously dense, which may obscure small masses (ACR BI-RADS breast composition Category c). There are no significant masses, abnormal calcifications, or other abnormalities. There are scattered bilateral vascular and punctate calcifications again seen, greater on left. Some additional benign coarse calcifications are present left subareolar region. The axilla and skin contours are unremarkable. No significant changes. MM/MM tomosynthesis screening BI IMPRESSION: No mammographic evidence of malignancy. ASSESSMENT: BI-RADS 2: Benign RECOMMENDATION: Routine annual mammography screening. This patient's information was entered into a reminder system with a target due date for their next mammogram.
== END 2021-07-08 09:45 | disposition home or self-care (01) ==
LOC: HO.MAMMO 09:44
PROVIDERS: PCP Internal Medicine; Visit Provider Internal Medicine
DX: Z12.31 Encounter for screening mammogram for malignant neoplasm of breast (principal)
CPT/HCPCS: 77063; 77067

== ENCOUNTER 2021-07-31 09:57 | Emergency (ER) | payer MEDICARE, MEDICAID, SELFPAY ==
--- NOTE | ~2021-07-31 | XR_ITS ---
EXAMINATION: XR ELBOW, RIGHT CLINICAL INFORMATION: Pain. History of gout. COMPARISON: None TECHNIQUE: AP, lateral, and oblique views of the right elbow. FINDINGS: Bone alignment is normal. No fracture or dislocation is seen. There is an osteophyte at the coronoid process. The joint spaces are otherwise normal. There is a joint effusion. There is medial and posterior soft tissue swelling over the elbow joint. XR/XR elbow RT min 3V IMPRESSION: Joint effusion. Small olecranon osteophyte. Medial and posterior soft tissue swelling over the elbow.
[2021-07-31 10:20] VITALS: BP 121/46; PULSE 95; RESP 16; TEMP 36.4; O2SAT 96; BMI 18.1
--- NOTE | 2021-07-31 11:32 | ED_ITS ---
HPI - Extremity Problem General Chief complaint: Extremity Problem Stated complaint: R arm pain Time Seen by Provider: 07/31/21 10:46 Source: patient and family ( at bedside) Mode of arrival: ambulatory Limitations: other (Hx of Dementia ) History of Present Illness HPI Narrative: 71-year-old female with a past medical history of dementia and gout presenting to the ED with complaints of atraumatic right elbow pain/swelling over the past few days worse today. denies any falls or trauma that he is aware of although he reports that she is in a day program and he is unsure if she she might a fell there although he reports they never reported an incident so he believes that she did not fall. Apparently the patient was on allopurinol in the past although it was discontinued secondary to her renal function. The patient usually gets gout flareups in her feet and she had 1 episode a few months ago to her right elbow and was seen here for that and was given colchicine and prednisone and that helped with her symptoms. Then she was seen a 2nd time and was given tramadol and the reports that did not help her pain. He is requesting for colchicine/prednisone and something stronger for the patient's pain especially for nighttime only a short course he reports. Otherwise he denies any fevers, chills, dizziness, headaches, paresthesias, neck pain/stiffness, trouble swallowing or breathing, cough, dyspnea on exertion, orthopnea, palpitations, chest pain or shortness of breath, lower extremity edema or calf tenderness, recent travel or sick contacts or any other symptoms complaints or concerns at this time. MD Complaint: joint swelling and joint paint Onset (ago): day(s) Pain Consistency: constant Location: right and elbow Severity scale (1-10): >10 Quality: aching and constant Radiation: none Relieving factors: nothing Exacerbating factors: nothing Associated symptoms: denies other symptoms Related Data Home Medications Medication Instructions Recorded Confirmed ergocalciferol (vitamin D2) 1,250 1,250 mcg PO QWEEK 10/17/20 06/24/21 mcg (50,000 unit) capsule calcitriol 0.25 mcg capsule 0.25 mcg PO DAILY cap 03/21/21 06/24/21 famotidine 20 mg tablet 20 mg PO DAILY tab 03/21/21 06/24/21 allopurinol 100 mg tablet 100 mg PO DAILY 05/30/21 06/24/21 Previous Rx's Medication Instructions Recorded donepezil 5 mg tablet 5 mg PO BEDTIME #90 tab 01/23/21 apixaban 2.5 mg tablet (Eliquis) 2.5 mg PO BID 90 Days #180 tab 02/21/21 metoprolol tartrate 50 mg tablet 75 mg PO BID 90 Days #270 tab 03/21/21 rosuvastatin 10 mg tablet 10 mg PO DAILY 90 Days #90 tab 03/21/21 thiamine HCl (vitamin B1) 100 mg 50 mg PO DAILY 90 Days #45 tab 03/26/21 tablet colchicine 0.6 mg tablet 0.3 mg PO DAILY #1 tab 06/04/21 prednisone 20 mg tablet 40 mg PO DAILY #5 tab 06/04/21 tramadol 50 mg tablet 50 mg PO BID PRN #10 tab 06/06/21 amlodipine 5 mg tablet 5 mg PO DAILY 90 Days #90 tab 06/09/21 colchicine 0.6 mg tablet 0.6 mg PO DAILY #6 tab 07/31/21 oxycodone 5 mg tablet 5 mg PO Q6H PRN #7 tab 07/31/21 prednisone 20 mg tablet 40 mg PO DAILY 5 Days #10 tab 07/31/21 Allergies Allergy/AdvReac Type Severity Reaction Status Date / Time NSAIDS AdvReac Severe CONTRAINDICATE Verified 06/24/21 10:17 (Non-Steroidal D Anti-Inflamma DUE TO [NSAIDS ANEMIA (NON-STEROIDAL ANTI-INFLAMMA] atorvastatin AdvReac Intermediate MUSCLE PAIN Verified 06/24/21 10:17 [From LIPITOR] Review of Systems Verdana 4l Review of Systems: Verdana 4d Verdana 4d Constitutional : No Weight loss, No Fever, No Chills, No Night Sweats, No Fatigue, No Malaise ENT/Mouth : No Hearing loss, No Ear Pain, No Nasal Congestion, No Sinus Pain, No Hoarseness, No sore throat, No Rhinorrhea, No Swallowing DifficultyDifficulty Eyes: No Eye Pain, No Swelling, No Redness, No Foreign Body, No Discharge, No Vision Changes Cardiovascular : No Chest Pain, No SOB, No Dyspnea on Exertion, No Orthopnea, No Edema, No Palpitations Respiratory : No Cough, No Sputum, No Wheezing, No Smoke Exposure, No Dyspnea Gastrointestinal : No Nausea, No Vomiting, No Diarrhea, No Constipation, No abdominal Pain, No Hematochezia, No Melena Genitourinary : no irregular bleeding, No Dysuria, No Urinary Frequency, No Hematuria, No Urinary Incontinence, No Urgency, No Flank Pain, No Urinary Flow Changes, No Hesitancy Musculoskeletal : + right elbow joint pain/swelling, No Myalgias Skin : No Skin Lesions, No rash Neuro : No Weakness, No Numbness, No Paresthesias, No Loss of Consciousness, No Dizziness, No Headache Psych : No Anxiety/Panic, No Depression, No SI/HI/AH/VH, No Social Issues, Heme/Lymph: No Bruising, No Bleeding,No Lymphadenopathy Endocrine : No Polyuria, No Polydipsia, No Temperature Intolerance Yes all other systems are reviewed and are negative [facility] Past Medical History Attestation statement: The following information was validated with the patient. Medical History Asthma CKD (chronic kidney disease) Colon cancer Dementia Essential hypertension GERD (gastroesophageal reflux disease) Hypokalemia Pure hypercholesterolemia Surgical History History of bilateral cataract extraction History of laparoscopy Family History Family History Father No problems noted. Mother No problems noted. Social History Social History Housing: Apartment Alcohol intake: never Patient Tobacco Use Status: Former Tobacco user e-Cigarette/Vaping Use: Never Used Second Hand Smoke Exposure: No Advance Directives: No Advance Directives Information Provided: No service: No Current occupational status: retired and disabled Physical Exam Verdana 4l Vital Signs: Verdana 4d Verdana 4d Vital Signs: Verdana 4d Verdana 4Bd Last Vital Signs Verdana 4d Lead Javascript Developer New 4d Lead Javascript Developer New 4d Temp 97.6 F 07/31/21 10:20 Lead Javascript Developer New 4d Pulse 95 07/31/21 10:20 Lead Javascript Developer New 4d Resp 16 07/31/21 10:20 BP 121/46 L 07/31/21 10:20 Pulse Ox 96 07/31/21 10:20 BMI result Body Mass Index 18.1 vital signs have been reviewed as normal and appeared to be correct. Blood pressure normal. Heart rate normal. Respiration rate normal. Temperature normal. Oxygen saturation normal. Appearance: Alert. Oriented X3. No acute distress. Head: Normal external exam. Normocephalic. Atraumatic. Eyes: PERRLA. EOMI. Conjunctiva and sclera normal. Eyelids normal. ENT:Pharynx normal. Uvula midline. Moist mucous membranes. No trismus noted. No drooling noted. No muffled voice noted. Neck: Normal inspection. Neck supple. FROM. No adenopathy. Thyroid Normal. No meningeal signs. No neck mass noted. CVS: Normal heart rate and rhythm. Heart sound normal. Pulses normal throughout. No murmurs/rales/gallops. Respiratory: No respiratory distress. Painless inspiration. Breath sounds normal. No wheezes/rales/rhonchi noted. Chest nontender. No accessory muscle usage noted or decreased air movement noted. Back: Full range of motion noted. No rashes/lesion/induration/fluctuance or signs of infection noted. Skin: Skin warm and dry. Normal skin color. Normal skin turgor. No rashes/lesions/lacerations noted. Extremities: Patient mild tenderness to palpation with soft tissue swelling/joint effusion 2 right elbow. No erythema/streaking/induration/fluctuance or signs of infection noted to the right elbow. No obvious tendon or ligament injury to the right elbow patient does have full range of motion. Otherwise all other Extremities exhibit normal range of motion and nontender. Neuro: Oriented X 3. No motor deficit. No sensory deficit. Reflexes normal. Normal steady gait. No focal neuro deficits noted. Vascular: + radial pulses/+ 2 distal pedal pulses/+2 dorsalis pedis b/l. Normal cap refill. No cyanosis noted to upper extremity nails and lower extremity toes nails. Course Course Course Narrative: 71-year-old female with a past medical history of dementia and gout presenting to the ED with complaints of atraumatic right elbow pain/swelling over the past few days worse today. denies any falls or trauma that he is aware of although he reports that she is in a day program and he is unsure if she she might a fell there although he reports they never reported an incident so he believes that she did not fall. Apparently the patient was on allopurinol in the past although it was discontinued secondary to her renal function. The amira sheridan usually gets gout flareups in her feet and she had 1 episode a few months ago to her right elbow and was seen here for that and was given colchicine and prednisone and that helped with her symptoms. Then she was seen a 2nd time and was given tramadol and the reports that did not help her pain. He is requesting for colchicine/prednisone and something stronger for the patient's pain especially for nighttime only a short course he reports. Otherwise he denies any fevers, chills, dizziness, headaches, paresthesias, neck pain/stiffness, trouble swallowing or breathing, cough, dyspnea on exertion, orthopnea, palpitations, chest pain or shortness of breath, lower extremity edema or calf tenderness, recent travel or sick contacts or any other symptoms complaints or concerns at this time. On exam patient has full range of motion she does have obvious joint effusion although no signs of infection no streaking/induration/fluctuance. No obvious ligamentous or tendon injury noted. No upper lower extremity edema. Patient denies any cardiac or lung related complaints such as chest pain or shortness of breath or dyspnea on exertion or orthopnea or any other related complaints. X- ray negative for any fractures. Will place in an Eliseo wrap for her joint effusion and treat symptomatic lead for possible gout versus elbow strain along with instructions return if any new or worsening symptoms to follow up with primary care provider. Patient with at bedside understand agree this plan. MDM - Extremity (Nontraumatic) Medical Records Attestation: I reviewed the patient's medical records. Imaging Data elbow: Attestation: I personally reviewed and interpreted this imaging study as follows: Radiologist's impression: FINDINGS: Bone alignment is normal. No fracture or dislocation is seen. There is an osteophyte at the coronoid process. The joint spaces are otherwise normal. There is a joint effusion. There is medial and posterior soft tissue swelling over the elbow joint.? XR/XR elbow RT min 3V IMPRESSION: Joint effusion. Small olecranon osteophyte. Medial and posterior soft tissue swelling over the elbow. Discharge Plan Discharge Clinical Impression: Gout, Joint effusion of elbow, Osteophyte of olecranon process Patient Disposition: Home, Self-Care Instructions: Low Purine Diet (ED), Gout (ED), Swollen Joint (ED) Prescriptions: New oxycodone 5 mg tablet 5 mg PO Q6H PRN (Reason: pain) Qty: 7 0RF prednisone 20 mg tablet 40 mg PO DAILY 5 Days Qty: 10 0RF colchicine 0.6 mg tablet 0.6 mg PO DAILY Qty: 6 0RF Rx Instructions: Take 1.2 mg as soon as possible, then take 0.6 mg an hour later. If symptoms persist repeat this regimen in 3 days not sooner. No Action donepezil 5 mg tablet 5 mg PO BEDTIME Qty: 90 2RF rosuvastatin 10 mg tablet 10 mg PO DAILY 90 Days Qty: 90 3RF thiamine HCl (vitamin B1) 100 mg tablet 50 mg PO DAILY 90 Days Qty: 45 1RF amlodipine 5 mg tablet 5 mg PO DAILY 90 Days Qty: 90 3RF calcitriol 0.25 mcg capsule 0.25 mcg PO DAILY 0RF famotidine 20 mg tablet 20 mg PO DAILY 0RF tramadol 50 mg tablet 50 mg PO BID PRN (Reason: pain) Qty: 10 0RF prednisone 20 mg tablet 40 mg PO DAILY Qty: 5 0RF colchicine 0.6 mg tablet 0.3 mg PO DAILY Qty: 1 0RF allopurinol 100 mg tablet 100 mg PO DAILY 0RF ergocalciferol (vitamin D2) 1,250 mcg (50,000 unit) capsule 1,250 mcg PO QWEEK 0RF Eliquis 2.5 mg tablet 2.5 mg PO BID 90 Days Qty: 180 4RF metoprolol tartrate 50 mg tablet 75 mg PO BID 90 Days Qty: 270 3RF Referrals: Karolina Schafer MD [Primary Care Provider] - 2 days Interventions: ED Discharge Assessment Last Done: 07/31/21 11:49 Discharge Date/Time: 07/31/21 11:49 Print Language: Nigerian
== END 2021-07-31 11:49 | disposition home or self-care (01) ==
PROVIDERS: Emergency Provider Emergency Medicine Emergency Medical Services; PCP Internal Medicine
DX: M25.422 Effusion, left elbow (principal); M25.421 Effusion, right elbow; M79.601 Pain in right arm; M10.9 Gout, unspecified; Z79.899 Other long term (current) drug therapy
CPT/HCPCS: 73080; 99283

== ENCOUNTER 2021-08-27 06:42 | Outpatient (REF) | payer MEDICARE, MEDICAID, SELFPAY ==
[2021-08-27 09:02] LABS: MANUAL DIFF FLAG NO
[2021-08-27 09:08] LABS: Basophils Absolute Auto 0.1 X10*3/uL (0.0-0.2); Basophils Percent Auto 0.9 % (0-2); Eosinophils Absolute Auto 0.7 X10*3/uL (0.0-0.4); Eosinophils Percent Auto 11.2 % (0-4); Hematocrit 38.4 % (37.0-47.0); Hemoglobin 12.3 g/dl (12.0-16.0); Imm Gran Abs Auto 0.01 X10*3/uL (0.00-0.03); Imm Gran Pct Auto 0.2 % (0.0-0.4); Lymphocytes Absolute Auto 1.5 X10*3/uL (1.2-4.9); Lymphocytes Percent Auto 25.8 % (20-40); Mean Corpuscular Hemoglobin 30.8 pg (27.0-33.0); Mean Corpuscular Volume 96.2 fL (80.0-98.0); Mean Platelet Volume 11.4 fL (9.4-12.3); Monocytes Absolute Auto 0.7 X10*3/uL (0.1-1.2); Monocytes Percent Auto 11.3 % (2-11); Neutrophils Percent Auto 50.6 % (45-73); Platelet Count 161 X10*3/uL (160-400); Red Blood Count 3.99 X10*6/uL (4.20-5.50); White Blood Count 5.8 X10*3/uL (4.8-10.8)
[2021-08-27 09:25] LABS: Albumin Level 3.8 g/dL (3.5-5.0); Anion Gap 13 (12-20); Blood Urea Nitrogen 12 mg/dL (9-16); Calcium 9.7 mg/dL (8.4-10.2); Carbon Dioxide 34 mmol/L (22-29); Chloride 102 mmol/L (96-108); Estimated Glomerular Filt Rate 24; Magnesium 1.8 mg/dL (1.6-2.6); Phosphorus 3.4 mg/dL (2.7-4.5); Potassium 3.1 mmol/L (3.3-5.1); Sodium 146 mmol/L (135-145)
[2021-08-27 09:32] LABS: Appearance Urine HAZY; Color Urine YELLOW; Glucose Urine UA NEG (NEG); Leukocyte Esterase Urine 1+ (NEG); Nitrite Urine POS (NEG); Specific Gravity - Urine 1.015 (1.005-1.025); Urine Blood TRACE (NEG); Urine Ketones NEG (NEG); Urine Protein 1+ MG/DL (NEG-TRACE)
[2021-08-27 09:45] LABS: Vitamin D 25-OH Total 61.5 ng/mL (>30)
[2021-08-27 09:52] LABS: Bacteria Urine 4+ /LPF; RBC Urine 0 /HPF (0); Squamous Epithelial Cell Urine TRACE /LPF
[2021-08-27 10:01] LABS: Creatinine Urine 64.94 mg/dL; Microalbum/Creatinine Ratio Ur 207.8 ug/mg cr; Protein/Creatinine Ratio, Ur 0.71 (<0.2); Total Protein Urine Random 46 mg/dL (<12)
[2021-08-29 15:06] LABS: PTHI 32 pg/mL (14-64)
== END 2021-08-27 06:43 | disposition home or self-care (01) ==
LOC: HO.LAB 06:42
PROVIDERS: PCP Internal Medicine; Visit Provider Internal Medicine Nephrology
DX: I12.9 Hypertensive chronic kidney disease with stage 1 through stage 4 chronic kidney disease, or unspecified chronic kidney disease (principal); N18.4 Chronic kidney disease, stage 4 (severe); N25.0 Renal osteodystrophy; M10.00 Idiopathic gout, unspecified site
CPT/HCPCS: 36415; 80051; 81001; 82040; 82043; 82306; 82310; 82565; 83735; 83970; 84100; 84156; 84520; 85025; 87086; 87088; 87186

== ENCOUNTER 2021-09-20 13:46 | Emergency (ER) | payer MEDICARE, MEDICAID, SELFPAY ==
--- NOTE | 2021-09-20 14:03 | ECG_ITS ---
Test Reason : ams Blood Pressure : / mmHG Vent. Rate : 092 BPM Atrial Rate : 000 BPM P-R Int : 000 ms QRS Dur : 090 ms QT Int : 390 ms P-R-T Axes : 000 108 -06 degrees QTc Int : 482 ms Atrial fibrillation Rightward axis Abnormal QRS-T angle, consider primary T wave abnormality Abnormal ECG When compared with ECG of 04-JUN-2019 15:59, Atrial fibrillation has replaced Sinus rhythm Vent. rate has increased BY 33 BPM QRS duration has increased Nonspecific T wave abnormality now evident in Inferior leads Nonspecific T wave abnormality now evident in Anterior leads Referred By: Cris Drake Electronically Signed By:Puneet Boucher
--- NOTE | 2021-09-20 14:06 | ED_ITS ---
HPI - General Adult General Chief complaint: Urogenital-Female Stated complaint: dementia Time Seen by Provider: 09/20/21 14:02 Source: EMS Mode of arrival: EMS Limitations: altered mental status History of Present Illness HPI narrative: 71-year-old female with a history of chronic kidney disease, gout, hypertension, high cholesterol, AFib, dementia here with reports of worsening confusion, attempting to leave adult daycare, aggressive with reportedly. Related Data Home Medications Medication Instructions Recorded Confirmed ergocalciferol (vitamin D2) 1,250 1,250 mcg PO QWEEK 10/17/20 06/24/21 mcg (50,000 unit) capsule calcitriol 0.25 mcg capsule 0.25 mcg PO DAILY cap 03/21/21 06/24/21 famotidine 20 mg tablet 20 mg PO DAILY tab 03/21/21 06/24/21 allopurinol 100 mg tablet 100 mg PO DAILY 05/30/21 06/24/21 Previous Rx's Medication Instructions Recorded donepezil 5 mg tablet 5 mg PO BEDTIME #90 tab 01/23/21 apixaban 2.5 mg tablet (Eliquis) 2.5 mg PO BID 90 Days #180 tab 02/21/21 metoprolol tartrate 50 mg tablet 75 mg PO BID 90 Days #270 tab 03/21/21 rosuvastatin 10 mg tablet 10 mg PO DAILY 90 Days #90 tab 03/21/21 colchicine 0.6 mg tablet 0.3 mg PO DAILY #1 tab 06/04/21 prednisone 20 mg tablet 40 mg PO DAILY #5 tab 06/04/21 tramadol 50 mg tablet 50 mg PO BID PRN #10 tab 06/06/21 amlodipine 5 mg tablet 5 mg PO DAILY 90 Days #90 tab 06/09/21 colchicine 0.6 mg tablet 0.6 mg PO DAILY #6 tab 07/31/21 oxycodone 5 mg tablet 5 mg PO Q6H PRN #7 tab 07/31/21 prednisone 20 mg tablet 40 mg PO DAILY 5 Days #10 tab 07/31/21 thiamine HCl (vitamin B1) 100 mg 50 mg PO DAILY 90 Days #45 tab 08/09/21 tablet cefuroxime axetil 250 mg tablet 250 mg PO BID #14 tab 09/20/21 Allergies Allergy/AdvReac Type Severity Reaction Status Date / Time NSAIDS (Non-Steroidal AdvReac Severe CONTRAINDICATED Verified 06/24/21 10:17 Anti-Inflamma DUE TO [NSAIDS (NON-STEROIDAL ANEMIA ANTI-INFLAMMA] atorvastatin [From LIPITOR] AdvReac Intermediate MUSCLE PAIN Verified 06/24/21 10:17 Review of Systems Review of Systems: Yes Unobtainable due to mental status Neurologic: Reports confusion Psychiatric: Psychiatric: Reports confusion [facility] Past Medical History Attestation statement: The following information was validated with the patient. Source: old records reviewed and nursing notes reviewed Medical History Asthma CKD (chronic kidney disease) Colon cancer Dementia Essential hypertension GERD (gastroesophageal reflux disease) Hypokalemia Pure hypercholesterolemia Surgical History History of bilateral cataract extraction History of laparoscopy Family History Family History Father No problems noted. Mother No problems noted. Social History Social History Housing: Apartment Alcohol intake: never Patient Tobacco Use Status: Former Tobacco user e-Cigarette/Vaping Use: Never Used Second Hand Smoke Exposure: No Advance Directives: No Advance Directives Information Provided: Yes service: No Current occupational status: retired and disabled Physical Exam ED Vital Signs: Vital Signs - 24 hr 09/20/21 14:07 09/20/21 15:38 Temperature 98.3 F 98.1 F Pulse Rate 77 94 Respiratory Rate 18 14 Blood Pressure 123/58 L Pulse Oximetry 97 95 BMI result Body Mass Index 18.8 Const General: healthy appearing, comfortable, no acute distress, alert and confusion Orientation/consciousness: confusion Limitations: altered mental status HENMT Head: Yes normal to inspection Ears: hearing grossly normal bilaterally and TM's normal bilaterally General nose exam: Normal external nose present Face and sinus: Yes normal facial exam Mouth: Normal oral and palatal mucosa present Teeth and gingiva: dentition normal Throat: Yes posterior oropharynx normal, Yes tonsils normal and Yes uvula midline Eyes General: appearance normal, both eyes and all related structures Pupils: Equal, round and reactive pupils present Neck Neck: Yes normal visual inspection, Yes full ROM, Yes no lymphadenopathy and Yes no meningeal signs Chest Chest palpation & inspection: normal inspection of the chest Resp Effort & Inspection: normal respiratory effort Auscultation: clear to auscultation bilaterally Cardio Rate: regular rate Rhythm: regular rhythm Peripheral pulses: Peripheral pulses 2+ throughout GI Inspection: Yes normal to inspection Palpation (GI): Soft to palpation and nontender General: Yes no CVA tenderness Back/Spine/Pelvis Back: no CVA tenderness Thoracic/Lumbar Spine: thoracic and lumbar spine normal to inspection Skin General skin exam: no rashes or lesions noted Neuro General: moves all extremities, no meningeal signs and confusion Cranial nerves: Yes Equal, round and reactive pupils present Gait exam (Neuro): Normal gait present Extrem General: Yes normal to inspection, Yes no pedal edema and Yes no calf tenderness Course Course Course Narrative: 71 yo female here with reportedly increasing confusion, aggressive behavior, exit seeking behavior from adult day care. Will check labs, UA, EKG, covid screen. D/w with family POC 1900-labs show renal function at baseline. Mild hypokalemia. Patient can orally replete this. I did give her a dose of potassium while she was here in the emergency department. UA is consistent with UTI. COVID screen is negative. EKG shows AFib at baseline. I discussed the results with the . We discussed the patient's behavior may be from an underlying infection and/or progressive dementia. I offered additional resource at home. Patient feels comfortable bringing the patient home. Declined additional resources at home. Reviewed worrisome signs and symptoms when to return to the emergency department. Comfortable discharge home. Medical Decision Making Medical Records Medical records reviewed: Yes I reviewed the patient's medical records. Lab Data Lab results reviewed: Yes I reviewed the patient's lab results. Result diagrams: 09/20/21 18:03 09/20/21 18:03 Labs: Lab Results 09/20/21 09/20/21 09/20/21 Range/Units 14:50 15:47 18:03 WBC 6.6 (4.8-10.8) X10*3/uL RBC 4.00 L (4.20-5.50) X10*6/uL Hgb 12.4 (12.0-16.0) g/dl Hct 37.6 (37.0-47.0) % MCV 94.0 (80.0-98.0) fL MCH 31.0 (27.0-33.0) pg MCHC 33.0 (31.0-35.0) g/dl RDW 14.5 (11.0-16.0) % Plt Count 154 L (160-400) X10*3/uL MPV 12.2 (9.4-12.3) fL Immature Gran % (Auto) 0.2 (0.0-0.4) % Neut % (Auto) 49.2 (45-73) % Lymph % (Auto) 30.2 (20-40) % Howard % (Auto) 11.2 H (2-11) % Eos % (Auto) 8.6 H (0-4) % Baso % (Auto) 0.6 (0-2) % Lymph # (Auto) 2.0 (1.2-4.9) X10*3/uL Howard # (Auto) 0.7 (0.1-1.2) X10*3/uL Eos # (Auto) 0.6 H (0.0-0.4) X10*3/uL Baso # (Auto) 0.0 (0.0-0.2) X10*3/uL Abs Immat Gran (auto) 0.01 (0.00-0.03) X10*3/uL Absolute Neuts (auto) 3.3 (2.0-8.3) x10*3/uL Absolute Nucleated RBC 0.000 (0.0-0.012) X10*3/uL Nucleated RBC % (auto) 0.0 (0.0-0.2) /100WBC Sodium (135-145) mmol/L Potassium (3.3-5.1) mmol/L Chloride (96-108) mmol/L Carbon Dioxide (22-29) mmol/L Anion Gap (12-20) BUN (9-16) mg/dL Creatinine (0.5-1.4) mg/dL Estim Creat Clear Calc Estimated GFR Random Glucose (60-115) mg/dL Calcium (8.4-10.2) mg/dL Total Bilirubin (0.0-1.0) mg/dL Direct Bilirubin (0.0-0.5) mg/dL AST (5-31) U/L ALT (0-31) U/L Alkaline Phosphatase (39-117) U/L Total Protein (6.5-8.0) g/dL Albumin (3.5-5.0) g/dL Urine Color YELLOW Urine Appearance HAZY Urine pH 7.5 (5.0-8.0) Ur Specific [place] 1.015 (1.005-1.025) Urine Protein 1+ H (NEG-TRACE) MG/DL Urine Glucose (UA) NEG (NEG) MG/DL Urine Ketones NEG (NEG) MG/DL Urine Blood 1+ H (NEG) Urine Nitrite POS H (NEG) Ur Leukocyte Esterase 1+ H (NEG) Urine RBC 1-4 (0) /HPF Urine WBC 5-9 H (0-4) /HPF Ur Squamous Epith Cells NONE /LPF Urine Bacteria 4+ /LPF COVID-19 (PHYLLIS) Negative (Negative) COVID-19 Clin Com See Note 09/20/21 Range/Units 18:03 WBC (4.8-10.8) X10*3/uL RBC (4.20-5.50) X10*6/uL Hgb (12.0-16.0) g/dl Hct (37.0-47.0) % MCV (80.0-98.0) fL MCH (27.0-33.0) pg MCHC (31.0-35.0) g/dl RDW (11.0-16.0) % Plt Count (160-400) X10*3/uL MPV (9.4-12.3) fL Immature Gran % (Auto) (0.0-0.4) % Neut % (Auto) (45-73) % Lymph % (Auto) (20-40) % Howard % (Auto) (2-11) % Eos % (Auto) (0-4) % Baso % (Auto) (0-2) % Lymph # (Auto) (1.2-4.9) X10*3/uL [place] # (Auto) (0.1-1.2) X10*3/uL Eos # (Auto) (0.0-0.4) X10*3/uL Baso # (Auto) (0.0-0.2) X10*3/uL Abs Immat Gran (auto) (0.00-0.03) X10*3/uL Absolute Neuts (auto) (2.0-8.3) x10*3/uL Absolute Nucleated RBC (0.0-0.012) X10*3/uL Nucleated RBC % (auto) (0.0-0.2) /100WBC Sodium 145 (135-145) mmol/L Potassium 2.9 L (3.3-5.1) mmol/L Chloride 100 (96-108) mmol/L Carbon Dioxide 34 H (22-29) mmol/L Anion Gap 14 (12-20) BUN 14 (9-16) mg/dL Creatinine 2.13 H (0.5-1.4) mg/dL Estim Creat Clear Calc 15.1 Estimated GFR 23 Random Glucose 101 (60-115) mg/dL Calcium 9.4 (8.4-10.2) mg/dL Total Bilirubin 1.2 H (0.0-1.0) mg/dL Direct Bilirubin 0.5 (0.0-0.5) mg/dL AST 25 D (5-31) U/L ALT 16 (0-31) U/L Alkaline Phosphatase 77 D (39-117) U/L Total Protein 6.6 (6.5-8.0) g/dL Albumin 3.9 (3.5-5.0) g/dL Urine Color Urine Appearance Urine pH (5.0-8.0) Ur Specific [place] (1.005-1.025) Urine Protein (NEG-TRACE) MG/DL Urine Glucose (UA) (NEG) MG/DL Urine Ketones (NEG) MG/DL Urine Blood (NEG) Urine Nitrite (NEG) Ur Leukocyte Esterase (NEG) Urine RBC (0) /HPF Urine WBC (0-4) /HPF Ur Squamous Epith Cells /LPF Urine Bacteria /LPF COVID-19 (PHYLLIS) (Negative) COVID-19 Clin Com ECG Data Attestation: I personally reviewed and interpreted this ECG as follows: Interpretation: AFib with a rate of 92, normal QRS, normal QT Discharge Plan Discharge Clinical Impression: Dementia, Urinary tract infection Patient Disposition: Home, Self-Care Instructions: Dementia (ED), Urinary Tract Infection in Older Adults (ED) Additional Instructions: Your potassium level was low. you received replacement orally here You have a urinary tract infection. Prescriptions: New cefuroxime axetil 250 mg tablet 250 mg PO BID Qty: 14 0RF No Action donepezil 5 mg tablet 5 mg PO BEDTIME Qty: 90 2RF rosuvastatin 10 mg tablet 10 mg PO DAILY 90 Days Qty: 90 3RF amlodipine 5 mg tablet 5 mg PO DAILY 90 Days Qty: 90 3RF thiamine HCl (vitamin B1) 100 mg tablet 50 mg PO DAILY 90 Days Qty: 45 1RF calcitriol 0.25 mcg capsule 0.25 mcg PO DAILY 0RF famotidine 20 mg tablet 20 mg PO DAILY 0RF tramadol 50 mg tablet 50 mg PO BID PRN (Reason: pain) Qty: 10 0RF prednisone 20 mg tablet 40 mg PO DAILY Qty: 5 0RF colchicine 0.6 mg tablet 0.3 mg PO DAILY Qty: 1 0RF oxycodone 5 mg tablet 5 mg PO Q6H PRN (Reason: pain) Qty: 7 0RF prednisone 20 mg tablet 40 mg PO DAILY 5 Days Qty: 10 0RF colchicine 0.6 mg tablet 0.6 mg PO DAILY Qty: 6 0RF Rx Instructions: Take 1.2 mg as soon as possible, then take 0.6 mg an hour later. If symptoms persist repeat this regimen in 3 days not sooner. allopurinol 100 mg tablet 100 mg PO DAILY 0RF ergocalciferol (vitamin D2) 1,250 mcg (50,000 unit) capsule 1,250 mcg PO QWEEK 0RF Eliquis 2.5 mg tablet 2.5 mg PO BID 90 Days Qty: 180 4RF metoprolol tartrate 50 mg tablet 75 mg PO BID 90 Days Qty: 270 3RF Referrals: Physician,Unknown J [Primary Care Provider] - 5 days Interventions: ED Discharge Assessment Last Done: 09/20/21 19:06 Discharge Date/Time: 09/20/21 19:07
[2021-09-20 14:07] VITALS: BP 126/66; PULSE 72; PULSE 77; RESP 18; TEMP 36.8; O2SAT 97; BMI 18.8
[2021-09-20 15:17] LABS: COVID-19 Test Negative (Negative)
[2021-09-20 15:38] VITALS: BP 123/58; PULSE 94; RESP 14; TEMP 36.7; O2SAT 95
[2021-09-20 15:53] LABS: Appearance Urine HAZY; Color Urine YELLOW; Glucose Urine UA NEG (NEG); Leukocyte Esterase Urine 1+ (NEG); Nitrite Urine POS (NEG); PH 7.5 (5.0-8.0); Specific Gravity - Urine 1.015 (1.005-1.025); UACC Culture Trigger YES; Urine Blood 1+ (NEG); Urine Ketones NEG (NEG); Urine Protein 1+ MG/DL (NEG-TRACE)
[2021-09-20 16:00] LABS: Bacteria Urine 4+ /LPF
[2021-09-20 18:07] LABS: MANUAL DIFF FLAG NO
[2021-09-20 18:12] LABS: Basophils Percent Auto 0.6 % (0-2); Eosinophils Absolute Auto 0.6 X10*3/uL (0.0-0.4); Eosinophils Percent Auto 8.6 % (0-4); Hematocrit 37.6 % (37.0-47.0); Hemoglobin 12.4 g/dl (12.0-16.0); Imm Gran Abs Auto 0.01 X10*3/uL (0.00-0.03); Imm Gran Pct Auto 0.2 % (0.0-0.4); Lymphocytes Percent Auto 30.2 % (20-40); Mean Platelet Volume 12.2 fL (9.4-12.3); Monocytes Absolute Auto 0.7 X10*3/uL (0.1-1.2); Monocytes Percent Auto 11.2 % (2-11); Neutrophils Absolute Auto 3.3 x10*3/uL (2.0-8.3); Neutrophils Percent Auto 49.2 % (45-73); Platelet Count 154 X10*3/uL (160-400); Red Cell Distribution Width 14.5 % (11.0-16.0); White Blood Count 6.6 X10*3/uL (4.8-10.8)
[2021-09-20 18:33] LABS: Alanine Aminotransferase 16 U/L (0-31); Albumin Level 3.9 g/dL (3.5-5.0); Alkaline Phosphatase 77 U/L (39-117); Anion Gap 14 (12-20); Aspartate Amino Transferase 25 U/L (5-31); Bilirubin Direct 0.5 mg/dL (0.0-0.5); Bilirubin Total 1.2 mg/dL (0.0-1.0); Blood Urea Nitrogen 14 mg/dL (9-16); Calcium 9.4 mg/dL (8.4-10.2); Carbon Dioxide 34 mmol/L (22-29); Chloride 100 mmol/L (96-108); Creatinine Clr Calc Pharmacy 15.1; Estimated Glomerular Filt Rate 23; Glucose Random 101 mg/dL (60-115); Potassium 2.9 mmol/L (3.3-5.1); Sodium 145 mmol/L (135-145); Total Protein 6.6 g/dL (6.5-8.0)
[2021-09-20] MEDS: Potassium Chloride ER 20 MEQ TAB.ER.PRT 60 MEQ PO (19:01)
== END 2021-09-20 19:07 | disposition home or self-care (01) ==
PROVIDERS: Nurse Practitioner Family; Emergency Provider Emergency Medicine
DX: N39.0 Urinary tract infection, site not specified (principal); F03.90 Unspecified dementia, unspecified severity, without behavioral disturbance, psychotic disturbance, mood disturbance, and anxiety; Z20.822 Contact with and (suspected) exposure to COVID-19; I12.9 Hypertensive chronic kidney disease with stage 1 through stage 4 chronic kidney disease, or unspecified chronic kidney disease; N18.9 Chronic kidney disease, unspecified; E78.5 Hyperlipidemia, unspecified; Z79.02 Long term (current) use of antithrombotics/antiplatelets; Z79.01 Long term (current) use of anticoagulants
CPT/HCPCS: 36415; 80048; 80076; 81001; 85025; 87086; 87088; 87186; 87635; 93005; 99283

== ENCOUNTER 2021-10-11 08:21 | Emergency (ER) | payer MEDICARE, MEDICAID, SELFPAY ==
--- NOTE | 2021-10-11 08:31 | ECG_ITS ---
Test Reason : ALTERED MENTAL STATUS Blood Pressure : / mmHG Vent. Rate : 085 BPM Atrial Rate : 000 BPM P-R Int : 000 ms QRS Dur : 080 ms QT Int : 372 ms P-R-T Axes : 000 102 -07 degrees QTc Int : 442 ms Atrial fibrillation Rightward axis Low voltage QRS Abnormal QRS-T angle, consider primary T wave abnormality Abnormal ECG When compared with ECG of 20-SEP-2021 15:01, No significant change was found Referred By: Sara Khan Electronically Signed By:Puneet Boucher
--- NOTE | 2021-10-11 08:32 | ED.PSYCH ---
HPI - Psych General Chief Complaint: Psychiatric Symptoms Stated Complaint: increased dementia Time Seen by Provider: 10/11/21 08:27 Source: patient Mode of arrival: EMS Limitations: other (dementia) History of Present Illness MD complaint: other (refusing to take medications) Onset (ago): day(s) (intermittent on and off ) Duration: intermittent History of same: Yes Relieving factors: none Exacerbating factors: none Context: other (dementia) Associated psychiatric symptoms: none Associated symptoms: denies other symptoms Related Data Home Medications Medication Instructions Recorded Confirmed famotidine 20 mg tablet 20 mg PO BEDTIME tab 03/21/21 10/11/21 allopurinol 100 mg tablet 100 mg PO DAILY 05/30/21 10/11/21 rosuvastatin 10 mg tablet 10 mg PO BEDTIME 10/11/21 10/11/21 Previous Rx's Medication Instructions Recorded donepezil 5 mg tablet 5 mg PO BEDTIME #90 tab 01/23/21 apixaban 2.5 mg tablet (Eliquis) 2.5 mg PO BID 90 Days #180 tab 02/21/21 metoprolol tartrate 50 mg tablet 75 mg PO BID 90 Days #270 tab 03/21/21 amlodipine 5 mg tablet 5 mg PO DAILY 90 Days #90 tab 06/09/21 thiamine HCl (vitamin B1) 100 mg 50 mg PO DAILY 90 Days #45 tab 08/09/21 tablet Allergies Allergy/AdvReac Type Severity Reaction Status Date / Time NSAIDS (Non-Steroidal AdvReac Severe CONTRAINDICATED Verified 06/24/21 10:17 Anti-Inflamma DUE TO [NSAIDS (NON-STEROIDAL ANEMIA ANTI-INFLAMMA] atorvastatin [From LIPITOR] AdvReac Intermediate MUSCLE PAIN Verified 06/24/21 10:17 Review of Systems Review of Systems: ROS unable to be obtained due to altered mental status [facility] Past Medical History Attestation statement: The following information was validated with the patient. Medical History Asthma CKD (chronic kidney disease) Colon cancer Dementia Essential hypertension GERD (gastroesophageal reflux disease) Hypokalemia Pure hypercholesterolemia Surgical History History of bilateral cataract extraction History of laparoscopy Family History Family History Father No problems noted. Mother No problems noted. Social History Social History Housing: Apartment Alcohol intake: never Patient Tobacco Use Status: Former Tobacco user e-Cigarette/Vaping Use: Never Used Second Hand Smoke Exposure: No Use of substances other than those prescribed or required for medical reasons: No Advance Directives: No Advance Directives Information Provided: No service: No Current occupational status: retired and disabled Physical Exam Vital Signs: Vital Signs: Last Vital Signs Temp 98.0 F 10/11/21 13:33 Pulse 89 10/11/21 13:33 Resp 20 10/11/21 13:33 BP 128/80 10/11/21 13:33 Pulse Ox 95 10/11/21 13:33 BMI result Body Mass Index 16.6 Appearance: Alert. Oriented X2 (place and self). No acute distress. Eyes: Pupils equal, round and reactive to light. ENT: Pharynx normal. Neck: Normal inspection. Neck supple. CVS: Normal heart rate and rhythm. Pulses normal. Respiratory: No respiratory distress. Breath sounds normal. Abdomen: Soft and non-tender. Skin: Skin warm and dry. Normal skin color. Normal skin turgor. Extremities: No lower extremity edema. No calf ttp Neuro: Oriented X 2 (place and self). No motor deficit. No sensory deficit. Course Course Course Narrative: + UA again last culture castro S E. Coli will dose with ceftin 250mg BID Patient placed in physician observation at 1007am. The indication for observation is that the patient needs more time for CM to help with placement in need of respite at this time for caregiver fatigue. At this time the patient is well developed well nourished, lungs clear, CV RRR, abd nontender, neuro is intact. Physician observation ended at 5pm. Patient seen and cleared CM for [facility]. Plan is to follow up as outpatient. NAD, lungs clear, CV RRR, Abd nontender, Neuro intact. Disposition is for STR. MDM - Psych MDM Narrative Medical decision making narrative: 71 yo female hx of afib, CKD, HTN, dementia - won't take medications at home. Seen on 09/20 for UTI - E. Coli castro sensitive. At this time did take her meds for paramedics. Will obtain basic labs, check for UTI - involve CM she is calm and cooperative here Lab Data Result diagrams: 10/11/21 09:23 10/11/21 09:23 Labs: Lab Results 10/11/21 10/11/21 10/11/21 Range/Units 09:05 09:23 09:23 WBC 5.6 (4.8-10.8) X10*3/uL RBC 4.53 (4.20-5.50) X10*6/uL Hgb 14.0 (12.0-16.0) g/dl Hct 43.2 (37.0-47.0) % MCV 95.4 (80.0-98.0) fL MCH 30.9 (27.0-33.0) pg MCHC 32.4 (31.0-35.0) g/dl RDW 14.8 (11.0-16.0) % Plt Count 161 (160-400) X10*3/uL MPV 11.8 (9.4-12.3) fL Immature Gran % (Auto) 0.2 (0.0-0.4) % Neut % (Auto) 50.3 (45-73) % Lymph % (Auto) 29.7 (20-40) % [place] % (Auto) 8.6 (2-11) % Eos % (Auto) 9.9 H (0-4) % Baso % (Auto) 1.3 (0-2) % Lymph # (Auto) 1.7 (1.2-4.9) X10*3/uL [place] # (Auto) 0.5 (0.1-1.2) X10*3/uL Eos # (Auto) 0.6 H (0.0-0.4) X10*3/uL Baso # (Auto) 0.1 (0.0-0.2) X10*3/uL Abs Immat Gran (auto) 0.01 (0.00-0.03) X10*3/uL Absolute Neuts (auto) 2.8 (2.0-8.3) x10*3/uL Absolute Nucleated RBC 0.000 (0.0-0.012) X10*3/uL Nucleated RBC % (auto) 0.0 (0.0-0.2) /100WBC Sodium 143 (135-145) mmol/L Potassium 3.3 (3.3-5.1) mmol/L Chloride 102 (96-108) mmol/L Carbon Dioxide 31 H (22-29) mmol/L Anion Gap 13 (12-20) BUN 12 (9-16) mg/dL Creatinine 2.17 H (0.5-1.4) mg/dL Estim Creat Clear Calc 14.5 Estimated GFR 22 Random Glucose 97 (60-115) mg/dL Calcium 9.2 (8.4-10.2) mg/dL Magnesium 1.9 (1.6-2.6) mg/dL Total Bilirubin 1.2 H (0.0-1.0) mg/dL Direct Bilirubin 0.5 (0.0-0.5) mg/dL AST 42 H D (5-31) U/L ALT 25 (0-31) U/L Alkaline Phosphatase 85 (39-117) U/L Total Protein 7.1 (6.5-8.0) g/dL Albumin 4.1 (3.5-5.0) g/dL Urine Color Urine Appearance Urine pH (5.0-8.0) Ur Specific [place] (1.005-1.025) Urine Protein (NEG-TRACE) MG/DL Urine Glucose (UA) (NEG) MG/DL Urine Ketones (NEG) MG/DL Urine Blood (NEG) Urine Nitrite (NEG) Ur Leukocyte Esterase (NEG) Urine RBC (0) /HPF Urine WBC (0-4) /HPF Ur Squamous Epith Cells /LPF Urine Bacteria /LPF COVID-19 (PHYLLIS) Negative (Negative) COVID-19 Clin Com See Note 10/11/21 Range/Units 09:24 WBC (4.8-10.8) X10*3/uL RBC (4.20-5.50) X10*6/uL Hgb (12.0-16.0) g/dl Hct (37.0-47.0) % MCV (80.0-98.0) fL MCH (27.0-33.0) pg MCHC (31.0-35.0) g/dl RDW (11.0-16.0) % Plt Count (160-400) X10*3/uL MPV (9.4-12.3) fL Immature Gran % (Auto) (0.0-0.4) % Neut % (Auto) (45-73) % Lymph % (Auto) (20-40) % [place] % (Auto) (2-11) % Eos % (Auto) (0-4) % Baso % (Auto) (0-2) % Lymph # (Auto) (1.2-4.9) X10*3/uL [place] # (Auto) (0.1-1.2) X10*3/uL Eos # (Auto) (0.0-0.4) X10*3/uL Baso # (Auto) (0.0-0.2) X10*3/uL Abs Immat Gran (auto) (0.00-0.03) X10*3/uL Absolute Neuts (auto) (2.0-8.3) x10*3/uL Absolute Nucleated RBC (0.0-0.012) X10*3/uL Nucleated RBC % (auto) (0.0-0.2) /100WBC Sodium (135-145) mmol/L Potassium (3.3-5.1) mmol/L Chloride (96-108) mmol/L Carbon Dioxide (22-29) mmol/L Anion Gap (12-20) BUN (9-16) mg/dL Creatinine (0.5-1.4) mg/dL Estim Creat Clear Calc Estimated GFR Random Glucose (60-115) mg/dL Calcium (8.4-10.2) mg/dL Magnesium (1.6-2.6) mg/dL Total Bilirubin (0.0-1.0) mg/dL Direct Bilirubin (0.0-0.5) mg/dL AST (5-31) U/L ALT (0-31) U/L Alkaline Phosphatase (39-117) U/L Total Protein (6.5-8.0) g/dL Albumin (3.5-5.0) g/dL Urine Color YELLOW Urine Appearance CLOUDY Urine pH 7.5 (5.0-8.0) Ur Specific [place] 1.015 (1.005-1.025) Urine Protein 2+ H (NEG-TRACE) MG/DL Urine Glucose (UA) NEG (NEG) MG/DL Urine Ketones NEG (NEG) MG/DL Urine Blood 2+ H (NEG) Urine Nitrite POS H (NEG) Ur Leukocyte Esterase 3+ H (NEG) Urine RBC 5-9 H (0) /HPF Urine WBC 30-49 H (0-4) /HPF Ur Squamous Epith Cells 1+ /LPF Urine Bacteria 4+ /LPF COVID-19 (PHYLLIS) (Negative) COVID-19 Clin Com ECG Data Attestation: I personally reviewed and interpreted this ECG as follows: ECG interpretation date: 10/11/21 ECG interpretation time: 09:14 Interpretation: Rate: 85 Rhythm: afib [place]: right Normal P waves. Normal [place]. Normal QRS complex. ST T wave : normal no CHARLY qTC: normal prior studies: no acute ischemia The study has been interpreted contemporaneously by me. Discharge Plan Discharge Clinical Impression: Dementia, Acute UTI Patient Disposition: Still a Patient Instructions: Urinary Tract Infection in Women (ED), Dementia (ED) Additional Instructions: return to ED for any worsening symptoms or concerns NEEDS TO BE ON CEFTIN 250MG BID FOR 7 MORE DAYS FOR UTI Prescriptions: No Action donepezil 5 mg tablet 5 mg PO BEDTIME Qty: 90 2RF amlodipine 5 mg tablet 5 mg PO DAILY 90 Days Qty: 90 3RF thiamine HCl (vitamin B1) 100 mg tablet 50 mg PO DAILY 90 Days Qty: 45 1RF famotidine 20 mg tablet 20 mg PO BEDTIME 0RF rosuvastatin 10 mg tablet 10 mg PO BEDTIME 0RF allopurinol 100 mg tablet 100 mg PO DAILY 0RF Eliquis 2.5 mg tablet 2.5 mg PO BID 90 Days Qty: 180 4RF metoprolol tartrate 50 mg tablet 75 mg PO BID 90 Days Qty: 270 3RF Referrals: [facility] [Outside]
[2021-10-11 08:38] VITALS: BP 114/70; BP 131/65; PULSE 100; PULSE 112; RESP 16; TEMP 36.9; O2SAT 100; BMI 16.6
[2021-10-11 09:30] LABS: MANUAL DIFF FLAG NO
[2021-10-11 09:33] LABS: Basophils Absolute Auto 0.1 X10*3/uL (0.0-0.2); Basophils Percent Auto 1.3 % (0-2); Eosinophils Absolute Auto 0.6 X10*3/uL (0.0-0.4); Eosinophils Percent Auto 9.9 % (0-4); Hematocrit 43.2 % (37.0-47.0); Imm Gran Abs Auto 0.01 X10*3/uL (0.00-0.03); Imm Gran Pct Auto 0.2 % (0.0-0.4); Lymphocytes Absolute Auto 1.7 X10*3/uL (1.2-4.9); Lymphocytes Percent Auto 29.7 % (20-40); Mean Corpuscular HGB Conc 32.4 g/dl (31.0-35.0); Mean Corpuscular Hemoglobin 30.9 pg (27.0-33.0); Mean Corpuscular Volume 95.4 fL (80.0-98.0); Mean Platelet Volume 11.8 fL (9.4-12.3); Monocytes Absolute Auto 0.5 X10*3/uL (0.1-1.2); Monocytes Percent Auto 8.6 % (2-11); Neutrophils Absolute Auto 2.8 x10*3/uL (2.0-8.3); Neutrophils Percent Auto 50.3 % (45-73); Platelet Count 161 X10*3/uL (160-400); Red Blood Count 4.53 X10*6/uL (4.20-5.50); Red Cell Distribution Width 14.8 % (11.0-16.0); White Blood Count 5.6 X10*3/uL (4.8-10.8)
[2021-10-11 09:38] LABS: Appearance Urine CLOUDY; Color Urine YELLOW; Glucose Urine UA NEG (NEG); Nitrite Urine POS (NEG); PH 7.5 (5.0-8.0); Specific Gravity - Urine 1.015 (1.005-1.025); UACC Culture Trigger YES; Urine Blood 2+ (NEG); Urine Ketones NEG (NEG); Urine Protein 2+ MG/DL (NEG-TRACE)
[2021-10-11 09:40] LABS: Leukocyte Esterase Urine 3+ (NEG)
[2021-10-11 09:46] LABS: Alanine Aminotransferase 25 U/L (0-31); Albumin Level 4.1 g/dL (3.5-5.0); Alkaline Phosphatase 85 U/L (39-117); Anion Gap 13 (12-20); Aspartate Amino Transferase 42 U/L (5-31); Bilirubin Direct 0.5 mg/dL (0.0-0.5); Bilirubin Total 1.2 mg/dL (0.0-1.0); Blood Urea Nitrogen 12 mg/dL (9-16); Calcium 9.2 mg/dL (8.4-10.2); Carbon Dioxide 31 mmol/L (22-29); Chloride 102 mmol/L (96-108); Creatinine Clr Calc Pharmacy 14.5; Estimated Glomerular Filt Rate 22; Glucose Random 97 mg/dL (60-115); Magnesium 1.9 mg/dL (1.6-2.6); Potassium 3.3 mmol/L (3.3-5.1); Sodium 143 mmol/L (135-145); Total Protein 7.1 g/dL (6.5-8.0)
[2021-10-11 09:52] LABS: COVID-19 Test Negative (Negative); IDNOW Serial# 16C4AD1C
[2021-10-11 10:01] LABS: Bacteria Urine 4+ /LPF; Squamous Epithelial Cell Urine 1+ /LPF; WBC Urine 30-49 /HPF (0-4)
--- NOTE | 2021-10-11 10:56 | PHA.MEDREC ---
Pharmacy Consult ? Medication Reconciliation Pharmacy has completed the medication reconciliation. spoke to pts
[2021-10-11 11:56] VITALS: BP 127/81; PULSE 86; RESP 18; TEMP 36.4; O2SAT 96
--- NOTE | 2021-10-11 11:57 | PC.NURSE ---
patient awake/confused, vss, pt family at bedside, vehicle monitor technician intact, call [facility] within reach, will continue to monitor.
[2021-10-11 13:33] VITALS: BP 128/80; PULSE 89; RESP 20; TEMP 36.7; O2SAT 95
--- NOTE | 2021-10-11 13:34 | PC.NURSE ---
patient ambulated with assist to bathroom, no c/o pain or discomfort, call [facility] within reach, will continue to monitor
--- NOTE | 2021-10-11 14:56 | MHC.CM.ED ---
Addendum entered by Vesta Huntley 10/11/21 15:02: Patient, ArmaanDesiree RN and Dr Khan aware and agreable to discharge plan. Original Note: Received case management consult from Dr Khan. Patient is from home with . Patient has advanced dementia and requires 24 hour care. , Armaan, is primary caregiver and is clearly experiencing caregiver fatigue. Armaan is requesting respite care for patient. Patient has been to [facility] in the past and requested referral be made there. Referral made via [facility]. They do not have a female bed available. Referral broadcasted in [facility] within 10 miles of patient's home. [facility] is able to offer a bed. Armaan accepts the bed. Patient can leave at 5pm. [facility] booked. [facility] with chart. MDS completed. Faxed to [facility] and provided to [facility].
[2021-10-11 16:00] VITALS: RESP 20
--- NOTE | 2021-10-11 16:43 | PC.NURSE ---
[facility] this nurse attempted to call report to [facility], there was no answer and no answering machine picked up to leave a message. will attempt again shortly and will also notify ems to have the unit call our facility for a proper report.
--- NOTE | 2021-10-11 16:44 | PC.NURSE ---
patient currently refusing vitals and wanting to leave the hospital to go home. awaiting ems arrival to discharge the patient
== END 2021-10-11 17:49 | disposition skilled nursing facility (03) ==
PROVIDERS: Emergency Provider Emergency Medicine; PCP Internal Medicine
DX: F03.90 Unspecified dementia, unspecified severity, without behavioral disturbance, psychotic disturbance, mood disturbance, and anxiety (principal); N39.0 Urinary tract infection, site not specified; I48.91 Unspecified atrial fibrillation; Z20.822 Contact with and (suspected) exposure to COVID-19; Z79.899 Other long term (current) drug therapy; Z87.891 Personal history of nicotine dependence; Z79.01 Long term (current) use of anticoagulants
CPT/HCPCS: 80048; 80076; 81001; 83735; 85025; 87086; 87635; 93005; 99284

== ENCOUNTER 2021-10-17 13:47 | Inpatient (IN) | payer MEDICARE, MEDICAID, SELFPAY ==
[2021-10-17] VITALS (14 sets, daily range): BP systolic 107–185; BP diastolic 53–86; PULSE 98–140; RESP 15–20; TEMP 35.9–37.1; O2SAT 94–99; BMI 17.4
--- NOTE | ~2021-10-17 | XR_ITS ---
EXAMINATION: XR CHEST CLINICAL INFORMATION: Altered mental status COMPARISON: Chest radiograph 04/18/2019, CT cervical spine 04/18/2019 TECHNIQUE: 2 views of the chest were obtained. FINDINGS: The heart is mildly enlarged. The trachea is deviated to the right, unchanged, secondary to a large multinodular goiter seen on prior CT neck as well as thyroid ultrasound. No infiltrates, effusions or lung masses are seen. A right chest port has its tip in the SVC. XR/XR chest 2V IMPRESSION: No acute intrathoracic disease. 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
--- NOTE | ~2021-10-17 | XR_ITS ---
EXAMINATION: XR SHOULDER, RIGHT CLINICAL INFORMATION: Right shoulder COMPARISON: None TECHNIQUE: Two views of the right shoulder. FINDINGS: No acute fracture or malalignment on these 2 views. Humeral head is appropriately situated at the glenoid. There is an old healed right clavicular shaft fracture with chronic deformity. Bones are osteopenic. No acute soft tissue abnormalities. Right IJ Port-A-Cath is noted. No acute pulmonary findings on these images. AC and glenohumeral joints appear relatively well-preserved. XR/XR shoulder RT min 2V IMPRESSION: No acute osseous findings at the right shoulder.
--- NOTE | ~2021-10-17 | CT_ITS ---
EXAMINATION: CT HEAD WITHOUT CONTRAST CLINICAL INFORMATION: Encephalopathy. COMPARISON: CT head 04/18/2019 TECHNIQUE: Contiguous axial imaging was performed from the skull base to vertex without intravenous administration of contrast. Coronal and sagittal reformatted images are performed at CT scanner This CT examination was performed using dose optimization techniques as appropriate, variously including the following: *Automated exposure control *Adjustment of mA and/or kV according to patient size (this includes techniques or standardized protocols for targeted exams where dose is matched to indication/reason for exam; i.e. 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 Chronic old infarct in the left parietal-occipital lobe. There is generalized global volume loss. There is marked prominence of the ventricles and the sulci . There is marked hypodensity of the periventricular white matter due to chronic small vessel ischemic disease. There are vascular calcifications of the internal carotid arteries bilaterally. There is no evidence of acute intracranial hemorrhage. No abnormal mass effect or midline shift is seen. Guerrero to white matter differentiation is well preserved. No extra-axial fluid collections are identified. The osseous structures and soft tissues are normal. The mastoid air cells and visualized portions of the paranasal sinuses are well aerated. CT/CT head/brain wo con IMPRESSION: No acute intracranial pathology. 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
--- NOTE | 2021-10-17 14:24 | ED_ITS ---
HPI - Altered Mental Status General Chief Complaint: Altered Mental Status Stated Complaint: Crisis AMS Time Seen by Provider: 10/17/21 14:00 Source: patient and EMS Mode of arrival: EMS Limitations: no limitations History of Present Illness HPI narrative: 71-year-old female presents emergency department with altered mental status she has a history of dementia noncompliance who was recently here for UTIs she arri clifton within normal vital signs including tachycardia. Patient has no complaint she had no complaints on arrival or for EMS she denies chest pain cough or fever denies any falls or injuries. MD complaint: altered mental status Related Data Home Medications Medication Instructions Recorded Confirmed famotidine 20 mg tablet 20 mg PO BEDTIME tab 03/21/21 10/17/21 allopurinol 100 mg tablet 100 mg PO DAILY 05/30/21 10/17/21 rosuvastatin 10 mg tablet 10 mg PO BEDTIME 10/11/21 10/17/21 bisacodyl 10 mg rectal suppository 10 mg ID DAILY PRN 10/17/21 10/17/21 cefuroxime axetil 250 mg tablet 250 mg PO BID 10/17/21 10/17/21 magnesium hydroxide 400 mg/5 mL 30 ml PO DAILY PRN 10/17/21 10/17/21 oral suspension Previous Rx's Medication Instructions Recorded donepezil 5 mg tablet 5 mg PO BEDTIME #90 tab 01/23/21 apixaban 2.5 mg tablet (Eliquis) 2.5 mg PO BID 90 Days #180 tab 02/21/21 metoprolol tartrate 50 mg tablet 75 mg PO BID 90 Days #270 tab 03/21/21 amlodipine 5 mg tablet 5 mg PO DAILY 90 Days #90 tab 06/09/21 thiamine HCl (vitamin B1) 100 mg 50 mg PO DAILY 90 Days #45 tab 08/09/21 tablet Allergies Allergy/AdvReac Type Severity Reaction Status Date / Time NSAIDS (Non-Steroidal AdvReac Severe CONTRAINDICATED Verified 06/24/21 10:17 Anti-Inflamma DUE TO [NSAIDS (NON-STEROIDAL ANEMIA ANTI-INFLAMMA] atorvastatin [From LIPITOR] AdvReac Intermediate MUSCLE PAIN Verified 06/24/21 10:17 Review of Systems Review of Systems: Review of systems: General: Patient denies any fever chills recent illness or falls Musculoskeletal: Denies back pain or body aches or other injuries HEENT: denies headache, runny nose, ear pain Respiratory: denies shortness of breath, cough Cardiovascular: no chest pain or palpitations : denies dysuria, frequency Abdomen: no nausea vomiting denies abdominal pain Extremities: no swelling, no pain Skin: no diaphoresis Yes all other systems are reviewed and are negative PMFSH Past Medical History Medical History Asthma CKD (chronic kidney disease) Colon cancer Dementia Essential hypertension GERD (gastroesophageal reflux disease) Hypokalemia Pure hypercholesterolemia Surgical History History of bilateral cataract extraction History of laparoscopy Family History Family History Father No problems noted. Mother No problems noted. Social History Social History Housing: Apartment Alcohol intake: never Patient Tobacco Use Status: Former Tobacco user e-Cigarette/Vaping Use: Never Used Second Hand Smoke Exposure: No Advance Directives: Yes Advance Directives on File: Yes Advance Directives Date on File: 10/11/21 service: No Current occupational status: retired and disabled Physical Exam ED Vital Signs: Vital Signs - 24 hr 10/17/21 13:56 10/17/21 15:06 Temperature 98.7 F Pulse Rate 121 H 120 H Respiratory Rate 19 16 Blood Pressure 149/73 H 185/76 H Pulse Oximetry 98 95 BMI result Body Mass Index 17.4 Neurological exam: CN II- XII tested. Patient is alert and oriented to person place and time. Patient has no dysphagia or dysarthia, denies good vision in all four vision maloney no nystagmus on exam, good strength to upper and lower extremities with normal reflexes to brachioradialis, wrist, patella and achilles.? Negative romberg, good finger to nose and heel to jimenez.?? General: Well-appearing well-nourished in no signs of distress HEENT: Normocephalic atraumatic? Neck: No signs of JVD, no masses no tenderness or lymphadenopathy Cardiovascular: Regular rate and rhythm Respiratory: Clear to auscultation bilaterally Abdomen: Soft nontender no masses Extremities: Normal pedal pulses no signs of edema Skin: Dry warm no rashes Back: No tenderness full ROM MDM - Altered Mental Status MDM Narrative Medical decision making narrative: Patient with recent UTI I will check labs recheck the urine and watch the patient here patient still tachycardic so give patient's fluids before cleaning patient medically to be evaluated by crisis. 1645 unable to obtain urine the patient has not been taking antibiotic was recently here for UTI think is likely the cause of her tachycardia and lactic acidosis I do not feel comfortable restraining her to put a Hu catheter in to check her urine she is unable to give us urine sample to get pretty advanced dementia think reasonable to treat the patient with Rocephin admit to Medicine Service for pyelonephritis lactic acidosis and tachycardia. Differential Diagnosis Differential diagnosis: Likely alcoholic intoxication, altered mental status, delirium, dementia, encephalopathy and hypoglycemia Lab Data Result diagrams: 10/17/21 14:23 10/17/21 14:23 Labs: Lab Results 10/17/21 10/17/21 10/17/21 Range/Units 14:15 14:23 14:23 WBC 5.5 (4.8-10.8) X10*3/uL RBC 4.45 (4.20-5.50) X10*6/uL Hgb 13.7 (12.0-16.0) g/dl Hct 42.2 (37.0-47.0) % MCV 94.8 (80.0-98.0) fL MCH 30.8 (27.0-33.0) pg MCHC 32.5 (31.0-35.0) g/dl RDW 15.0 (11.0-16.0) % Plt Count 159 L (160-400) X10*3/uL MPV 12.0 (9.4-12.3) fL Immature Gran % (Auto) 0.2 (0.0-0.4) % Neut % (Auto) 41.0 L (45-73) % Lymph % (Auto) 37.9 (20-40) % [place] % (Auto) 8.0 (2-11) % Eos % (Auto) 12.0 H (0-4) % Baso % (Auto) 0.9 (0-2) % Lymph # (Auto) 2.1 (1.2-4.9) X10*3/uL [place] # (Auto) 0.4 (0.1-1.2) X10*3/uL Eos # (Auto) 0.7 H (0.0-0.4) X10*3/uL Baso # (Auto) 0.1 (0.0-0.2) X10*3/uL Abs Immat Gran (auto) 0.01 (0.00-0.03) X10*3/uL Absolute Neuts (auto) 2.3 (2.0-8.3) x10*3/uL Absolute Nucleated RBC 0.000 (0.0-0.012) X10*3/uL Nucleated RBC % (auto) 0.0 (0.0-0.2) /100WBC Sodium 145 (135-145) mmol/L Potassium 3.5 (3.3-5.1) mmol/L Chloride 105 (96-108) mmol/L Carbon Dioxide 29 (22-29) mmol/L Anion Gap 15 (12-20) BUN 21 H D (9-16) mg/dL Creatinine 1.79 H (0.5-1.4) mg/dL Estim Creat Clear Calc 17.2 Estimated GFR 28 Random Glucose 159 H (60-115) mg/dL Lactic Acid (0.5-2.0) mmol/L Calcium 9.9 D (8.4-10.2) mg/dL Total Bilirubin 1.5 H (0.0-1.0) mg/dL Direct Bilirubin 0.5 (0.0-0.5) mg/dL AST 38 H (5-31) U/L ALT 19 (0-31) U/L Alkaline Phosphatase 82 (39-117) U/L Total Protein 7.3 (6.5-8.0) g/dL Albumin 4.1 (3.5-5.0) g/dL Lipase 102 H (8-78) U/L COVID-19 (PHYLLIS) Negative (Negative) COVID-19 Clin Com See Note 10/17/21 Range/Units 14:23 WBC (4.8-10.8) X10*3/uL RBC (4.20-5.50) X10*6/uL Hgb (12.0-16.0) g/dl Hct (37.0-47.0) % MCV (80.0-98.0) fL MCH (27.0-33.0) pg MCHC (31.0-35.0) g/dl RDW (11.0-16.0) % Plt Count (160-400) X10*3/uL MPV (9.4-12.3) fL Immature Gran % (Auto) (0.0-0.4) % Neut % (Auto) (45-73) % Lymph % (Auto) (20-40) % [place] % (Auto) (2-11) % Eos % (Auto) (0-4) % Baso % (Auto) (0-2) % Lymph # (Auto) (1.2-4.9) X10*3/uL [place] # (Auto) (0.1-1.2) X10*3/uL Eos # (Auto) (0.0-0.4) X10*3/uL Baso # (Auto) (0.0-0.2) X10*3/uL Abs Immat Gran (auto) (0.00-0.03) X10*3/uL Absolute Neuts (auto) (2.0-8.3) x10*3/uL Absolute Nucleated RBC (0.0-0.012) X10*3/uL Nucleated RBC % (auto) (0.0-0.2) /100WBC Sodium (135-145) mmol/L Potassium (3.3-5.1) mmol/L Chloride (96-108) mmol/L Carbon Dioxide (22-29) mmol/L Anion Gap (12-20) BUN (9-16) mg/dL Creatinine (0.5-1.4) mg/dL Estim Creat Clear Calc Estimated GFR Random Glucose (60-115) mg/dL Lactic Acid 2.7 H* (0.5-2.0) mmol/L Calcium (8.4-10.2) mg/dL Total Bilirubin (0.0-1.0) mg/dL Direct Bilirubin (0.0-0.5) mg/dL AST (5-31) U/L ALT (0-31) U/L Alkaline Phosphatase (39-117) U/L Total Protein (6.5-8.0) g/dL Albumin (3.5-5.0) g/dL Lipase (8-78) U/L COVID-19 (PHYLLIS) (Negative) COVID-19 Clin Com Discharge Plan Discharge Clinical Impression: Dementia, Acute dehydration, Acidosis, lactic, Acute UTI, Acute alteration in mental status Patient Disposition: Admitted As Inpatient Prescriptions: No Action donepezil 5 mg tablet 5 mg PO BEDTIME Qty: 90 2RF amlodipine 5 mg tablet 5 mg PO DAILY 90 Days Qty: 90 3RF thiamine HCl (vitamin B1) 100 mg tablet 50 mg PO DAILY 90 Days Qty: 45 1RF famotidine 20 mg tablet 20 mg PO BEDTIME 0RF rosuvastatin 10 mg tablet 10 mg PO BEDTIME 0RF cefuroxime axetil 250 mg tablet 250 mg PO BID 0RF magnesium hydroxide 400 mg/5 mL Suspension 30 ml PO DAILY PRN (Reason: Constipation) 0RF bisacodyl 10 mg Suppository 10 mg ID DAILY PRN (Reason: Constipation) 0RF allopurinol 100 mg tablet 100 mg PO DAILY 0RF Eliquis 2.5 mg tablet 2.5 mg PO BID 90 Days Qty: 180 4RF metoprolol tartrate 50 mg tablet 75 mg PO BID 90 Days Qty: 270 3RF
[2021-10-17] MEDS: 0.9 % Sodium Chloride 1,000 ML 999 ML IV ×2 (14:26→18:40)
[2021-10-17 14:31] LABS: MANUAL DIFF FLAG NO
--- NOTE | 2021-10-17 14:34 | PHA.MEDREC ---
Pharmacy Consult ? Medication Reconciliation Pharmacy has completed the medication reconciliation. Pt had list of medications from SNF, but was unable to articulate when she last took anything. Josee Navarro, UdayD
[2021-10-17 14:41] LABS: Basophils Absolute Auto 0.1 X10*3/uL (0.0-0.2); Basophils Percent Auto 0.9 % (0-2); Eosinophils Absolute Auto 0.7 X10*3/uL (0.0-0.4); Hematocrit 42.2 % (37.0-47.0); Hemoglobin 13.7 g/dl (12.0-16.0); Imm Gran Abs Auto 0.01 X10*3/uL (0.00-0.03); Imm Gran Pct Auto 0.2 % (0.0-0.4); Lymphocytes Absolute Auto 2.1 X10*3/uL (1.2-4.9); Lymphocytes Percent Auto 37.9 % (20-40); Mean Corpuscular HGB Conc 32.5 g/dl (31.0-35.0); Mean Corpuscular Hemoglobin 30.8 pg (27.0-33.0); Mean Corpuscular Volume 94.8 fL (80.0-98.0); Monocytes Absolute Auto 0.4 X10*3/uL (0.1-1.2); Neutrophils Absolute Auto 2.3 x10*3/uL (2.0-8.3); Platelet Count 159 X10*3/uL (160-400); Red Blood Count 4.45 X10*6/uL (4.20-5.50); White Blood Count 5.5 X10*3/uL (4.8-10.8)
[2021-10-17 14:52] LABS: Alanine Aminotransferase 19 U/L (0-31); Albumin Level 4.1 g/dL (3.5-5.0); Alkaline Phosphatase 82 U/L (39-117); Anion Gap 15 (12-20); Aspartate Amino Transferase 38 U/L (5-31); Bilirubin Direct 0.5 mg/dL (0.0-0.5); Bilirubin Total 1.5 mg/dL (0.0-1.0); Blood Urea Nitrogen 21 mg/dL (9-16); Calcium 9.9 mg/dL (8.4-10.2); Carbon Dioxide 29 mmol/L (22-29); Chloride 105 mmol/L (96-108); Creatinine Clr Calc Pharmacy 17.2; Estimated Glomerular Filt Rate 28; Glucose Random 159 mg/dL (60-115); Lactic Acid 2.7 mmol/L (0.5-2.0); Lipase 102 U/L (8-78); Potassium 3.5 mmol/L (3.3-5.1); Sodium 145 mmol/L (135-145); Total Protein 7.3 g/dL (6.5-8.0)
[2021-10-17 14:54] LABS: COVID-19 Test Negative (Negative)
[2021-10-17 16:28] LABS: Reflex Lactate? Lactic Acid Added
[2021-10-17] MEDS: cefTRIAXone sodium 2 GM in 0.9 % Sodium Chloride 50 ML IV (17:04)
--- NOTE | 2021-10-17 17:05 | ECG_ITS ---
Test Reason : RAPID RATE Blood Pressure : / mmHG Vent. Rate : 115 BPM Atrial Rate : 000 BPM P-R Int : 000 ms QRS Dur : 080 ms QT Int : 322 ms P-R-T Axes : 000 101 -78 degrees QTc Int : 445 ms Atrial fibrillation with rapid ventricular response Rightward axis Nonspecific ST and T wave abnormality Abnormal ECG When compared with ECG of 11-OCT-2021 09:01, T wave inversion now evident in Anterior leads Referred By: Forrest Jimenez Electronically Signed By:YONY LEE MD
[2021-10-17 17:35] LABS: ~Lactic Acid-LAB USE ONLY 2.4 mmol/L (0.5-2.0)
[2021-10-17 17:43] LABS: Appearance Urine HAZY; Color Urine YELLOW; Glucose Urine UA NEG (NEG); Leukocyte Esterase Urine NEG (NEG); Nitrite Urine NEG (NEG); PH 6.5 (5.0-8.0); Specific Gravity - Urine 1.015 (1.005-1.025); UACC Culture Trigger NO; Urine Blood TRACE (NEG); Urine Ketones NEG (NEG); Urine Protein TRACE MG/DL (NEG-TRACE)
[2021-10-17 17:55] LABS: Bacteria Urine TRACE /LPF; Mucus Urine TRACE /LPF; RBC Urine 0-2 /HPF (0); Squamous Epithelial Cell Urine 3+ /LPF; WBC Urine 0-2 /HPF (0-4)
--- NOTE | 2021-10-17 18:15 | PC.NURSE ---
pt ambulated to BR with assist of die technician to void. pt confused on going back to room, doesnt understand why she is here despite reassurance.
[2021-10-17] MEDS: dilTIAZem HCL 50 MG/10 ML VIAL 10 MG IVPUSH (18:39)
--- NOTE | 2021-10-17 18:47 | PC.NURSE ---
pt given dinner, IVF connected back to pt, pt asking what we are doing to her, starting to yell, pt reminded that she is in the hospital, pt yelling get away from me
[2021-10-17 19:17] LABS: Reflex Lactate? 2 Y
--- NOTE | 2021-10-17 19:20 | PC.NURSE ---
pt asking to go the BR again, when stood up pt was unsteady. bedside commode obtained, but pt refused to use it, yelling im not disabled pt needed to be assited back to bed.
[2021-10-17] MEDS: LORazepam 2 MG/ML VIAL 1 MG IVPUSH (19:31)
--- NOTE | 2021-10-17 19:41 | PC.NURSE ---
bladder scan showed 167 cc. pt refusing to use the bedpan. pt asking to use commode at this time.
[2021-10-17] MEDS: dilTIAZem HCL 125 MG in 0.9 % Sodium Chloride 100 ML 10 MG IVCONT (19:53)
[2021-10-17 20:06] LABS: ~Lactic Acid-LAB USE ONLY 1.7 mmol/L (0.5-2.0)
--- NOTE | 2021-10-17 20:22 | PC.NURSE ---
pt restless, trying to get OOB, trying to pull cardiac leads off, trying to pull iV out
--- NOTE | 2021-10-17 20:33 | P.HPHOSP_ITS ---
History of Present Illness Date of Service: 10/17/21 Chief Complaint: Encephalopathy Patient is completely encephalopathic, I am unable to get much history from her, she is not directable, trying to get out of bed, pull her IV lines, pushing ED staff, not really compliant with care. Therefore history is obtained from EMR as well as ED staff. [facility] of [facility]compliance with care, and increased confusion. Patient refusing to take medications for her recent diagnosis UTI, also found to be tachycardic. I am unable to get much more history, no review of systems available given patient's mental status. On arrival to the ED patient was found to be in AFib with RVR, blood pressure stable Labs are found to be significant for for lactic acidosis of 2.7, otherwise unr emarkable, UA is negative at this time. Of note patient was seen in the hospital on the , treated for UTI with p.o. a cefuroxime and [facility] as her was unable to take care of her at home Chest x-ray was negative Given patient's inability to take p.o. antibiotics for her recent infection UTI and not completing her antibiotics, patient will need admission for IV antibiot ics Review of Systems Review of Systems: Yes all other systems are reviewed and are negative [facility] Medical History Asthma CKD (chronic kidney disease) Colon cancer Dementia Essential hypertension GERD (gastroesophageal reflux disease) Hypokalemia Pure hypercholesterolemia Family History Father No problems noted. Mother No problems noted. Surgical History History of bilateral cataract extraction History of laparoscopy Social History Household Members: None Housing: Custodial Unable to assess alcohol history related to: Unknown Alcohol intake: never Patient Tobacco Use Status: Former Tobacco user e-Cigarette/Vaping Use: Never Used Second Hand Smoke Exposure: No Use of substances other than those prescribed or required for medical reasons: Unknown Currently Displaying Signs/Symptoms of Drug Intoxication Withdrawal: No Any prior treatment program specific to substance use: No Advance Directives: Yes Advance Directives on File: Yes Advance Directives Date on File: 10/11/21 Do you have thoughts of harming others: None Do you have a plan to hurt others: No Plan service: No Current occupational status: retired and disabled Meds Allergies Allergy/AdvReac Type Severity Reaction Status Date / Time NSAIDS (Non-Steroidal AdvReac Severe CONTRAINDICATED Verified 06/24/21 10:17 Anti-Inflamma DUE TO [NSAIDS (NON-STEROIDAL ANEMIA ANTI-INFLAMMA] atorvastatin [From LIPITOR] AdvReac Intermediate MUSCLE PAIN Verified 06/24/21 10:17 Active Medications: Current Medications Diltiazem HCl 125 mg/ Sodium (Chloride) 125 mls @ 0 mls/hr IVCONT .Q0M DAHLIA; Protocol Last Titration: 10/17/21 20:21 Dose: 15 mg/hr, 15 mls/hr Documented by: Pharmacy Consult (Consult Rx Perform Med Rec) 1 each MISCELLANE ONCE PRN PRN Reason: Consult order Home Medications Medication Instructions Recorded Confirmed Last Taken Type famotidine 20 mg tablet 20 mg PO BEDTIME tab 03/21/21 10/17/21 10/09/21 History allopurinol 100 mg tablet 100 mg PO DAILY 05/30/21 10/17/21 10/11/21 History rosuvastatin 10 mg tablet 10 mg PO BEDTIME 10/11/21 10/17/21 10/09/21 History bisacodyl 10 mg rectal suppository 10 mg IA DAILY PRN 10/17/21 10/17/21 Unknown History cefuroxime axetil 250 mg tablet 250 mg PO BID 10/17/21 10/17/21 Unknown History magnesium hydroxide 400 mg/5 mL 30 ml PO DAILY PRN 10/17/21 10/17/21 Unknown History oral suspension Physical Exam Vital Signs and Narrative: Vital Signs: Last Vital Signs Temp 98.7 F 10/17/21 13:56 Pulse 120 H 10/17/21 17:50 Resp 16 10/17/21 15:06 BP 125/86 10/17/21 17:50 Pulse Ox 95 10/17/21 15:06 BMI result Body Mass Index 17.4 Const: Other: Patient very confused, on directable, very agitated, pulling at her lines Eyes: General: appearance normal, both eyes and all related structures Resp: Effort & Inspection: normal respiratory effort Auscultation: clear to auscultation bilaterally Cardio: Rate: regular rate Rhythm: regular rhythm GI: Palpation (GI): Soft to palpation Auscultation: normal bowel sounds Skin: General skin exam: no rashes or lesions noted Extrem: General: Yes normal to inspection and Yes no pedal edema Results Labs CBC and Chem 7: 10/18/21 06:16 10/17/21 14:23 Labs: Laboratory Results - last 24 hr 10/17/21 10/17/21 10/17/21 14:15 14:23 14:23 MCV 94.8 MCH 30.8 MCHC 32.5 RDW 15.0 Plt Count 159 L MPV 12.0 Immature Gran % (Auto) 0.2 Neut % (Auto) 41.0 L Lymph % (Auto) 37.9 [place] % (Auto) 8.0 Eos % (Auto) 12.0 H Baso % (Auto) 0.9 Lymph # (Auto) 2.1 [place] # (Auto) 0.4 Eos # (Auto) 0.7 H Baso # (Auto) 0.1 Abs Immat Gran (auto) 0.01 Absolute Neuts (auto) 2.3 Absolute Nucleated RBC 0.000 Nucleated RBC % (auto) 0.0 Anion Gap 15 Estim Creat Clear Calc 17.2 Estimated GFR 28 Random Glucose 159 H Lactic Acid Lactic Acid F/U @ 2Hr Lactic Acid F/U @ 4Hr Calcium 9.9 D Total Bilirubin 1.5 H Direct Bilirubin 0.5 AST 38 H ALT 19 Alkaline Phosphatase 82 Total Protein 7.3 Albumin 4.1 Lipase 102 H Urine Color Urine Appearance Urine pH Ur Specific [place] Urine Protein Urine Glucose (UA) Urine Ketones Urine Blood Urine Nitrite Ur Leukocyte Esterase Urine RBC Urine WBC Ur Squamous Epith Cells Urine Bacteria Urine Mucus COVID-19 (PHYLLIS) Negative COVID-19 Clin Com See Note 10/17/21 10/17/21 10/17/21 14:23 17:13 17:36 MCV MCH MCHC RDW Plt Count MPV Immature Gran % (Auto) Neut % (Auto) Lymph % (Auto) [place] % (Auto) Eos % (Auto) Baso % (Auto) Lymph # (Auto) [place] # (Auto) Eos # (Auto) Baso # (Auto) Abs Immat Gran (auto) Absolute Neuts (auto) Absolute Nucleated RBC Nucleated RBC % (auto) Anion Gap Estim Creat Clear Calc Estimated GFR Random Glucose Lactic Acid 2.7 H* Lactic Acid F/U @ 2Hr 2.4 H* Lactic Acid F/U @ 4Hr Calcium Total Bilirubin Direct Bilirubin AST ALT Alkaline Phosphatase Total Protein Albumin Lipase Urine Color YELLOW Urine Appearance HAZY Urine pH 6.5 Ur Specific [place] 1.015 Urine Protein TRACE Urine Glucose (UA) NEG Urine Ketones NEG Urine Blood TRACE Urine Nitrite NEG Ur Leukocyte Esterase NEG Urine RBC 0-2 Urine WBC 0-2 Ur Squamous Epith Cells 3+ Urine Bacteria TRACE Urine Mucus TRACE COVID-19 (PHYLLIS) COVID-19 Clin Com 10/17/21 19:53 MCV MCH MCHC RDW Plt Count MPV Immature Gran % (Auto) Neut % (Auto) Lymph % (Auto) [place] % (Auto) Eos % (Auto) Baso % (Auto) Lymph # (Auto) [place] # (Auto) Eos # (Auto) Baso # (Auto) Abs Immat Gran (auto) Absolute Neuts (auto) Absolute Nucleated RBC Nucleated RBC % (auto) Anion Gap Estim Creat Clear Calc Estimated GFR Random Glucose Lactic Acid Lactic Acid F/U @ 2Hr Lactic Acid F/U @ 4Hr 1.7 Calcium Total Bilirubin Direct Bilirubin AST ALT Alkaline Phosphatase Total Protein Albumin Lipase Urine Color Urine Appearance Urine pH Ur Specific [place] Urine Protein Urine Glucose (UA) Urine Ketones Urine Blood Urine Nitrite Ur Leukocyte Esterase Urine RBC Urine WBC Ur Squamous Epith Cells Urine Bacteria Urine Mucus COVID-19 (PHYLLIS) COVID-19 Clin Com Imaging Radiologist's Impressions: Impressions Chest X-Ray 10/17/21 15:02 IMPRESSION: No acute intrathoracic disease. 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 Assessment and Plan (1) Atrial fibrillation with RVR: Status: Acute (2) Acute dehydration: Status: Acute (3) Acidosis, lactic: Status: Acute (4) Acute UTI: Status: Acute (5) Encephalopathy: Status: Acute Plan This is a 71-year-old female with a baseline dementia who [facility] with [facility] and increased confusion found to have tachycardia with AFib with RVR # AFib with RVR - likely secondary to medication noncompliance, as well as infection with UTI - patient started on diltiazem drip - continue her metoprolol - continue Eliquis # recent UTI - although UA is clear, patient did not complete her antibiotics - will place her on IV ceftriaxone - follow cultures # encephalopathy - likely secondary to acute infection - will treat with 1 dose of Haldol given her agitation and noncompliance with care - follow mentation after treatment with IV antibiotics # hypertension - continue amlodipine # CKD - not in ANJALI - IV fluids as patient not take anything by p.o. at this time - follow BMP DVT prophylaxis: Eliquis Given the AFib with RVR requiring diltiazem drip, as well as patient's inability to take p.o. antibiotics she will require a medically necessary admission to the hospital Quality Stroke Does the patient have a stroke diagnosis?: No VTE Prior VTE?: No VTE Risk Level:: Medical - moderate - high VTE Device Contraindication: Treatment Not Indicated VTE Drug Contraindication: N/A - Med Ordered
[2021-10-17] MEDS: Haloperidol Lactate 5 MG/ML VIAL 2.5 MG IVPUSH (20:43)
--- NOTE | 2021-10-17 21:40 | PC.NURSE ---
tried to call report to 4th floor, awaiting call back for report
--- NOTE | 2021-10-17 21:51 | PC.NURSE ---
pt restless, trying to remove leads, reassured by archives technician. archives technician at bedside
--- NOTE | 2021-10-17 22:06 | MHC.CM.PN ---
Addendum entered by Yen King 10/17/21 22:23: does want his to eventually come home. He does not want her to live in a longterm. He just wants help lined up to assist at home when she eventually is d/c home. Original Note: [facility] 10/17- reviewed with INVOKED HCP/ Tana Nieves. Copy sent to HCP along with contact card. Pt was section [address] [facility]. Was there for STR x 1 week. Section 12 for being resistant to care, not eating, refusing medications, refusing to change clothing/adult diaper, wandering and restlessness. Vax/boosted/[employer]. Pt diagnosed with dementia with behavioral disturbances. tells CM that he has been caring for his with worsening dementia over the past 2-3 years with little to no help. Pt needs help with dressing, bathing and medications. tells CM that he needed a break and that is why his is at the longterm. He states that he expects her to return for another week at least. States he spoke with the social science professor at [facility] and they have arranged ENVIRONMENTAL QUALITY ANALYST/MEASUREMENT ADVISOR help for him at home. CM will need to verify that in the am and ascertain if [facility] is willing to take pt back. Explained to that once his is medically cleared, the longterm may want medication management for her behaviors. Pt may need a psych consult for medication management. Pt /invoked HCP requests to be called with updates on his 's condition. Given CM contact information and pt room number [id number] and [facility] telephone number. Encouraged to call pt's nurse for updates. Return referral placed in Care Port. CM to follow for d/c needs.
--- NOTE | 2021-10-17 22:22 | PC.NURSE ---
pt refusing to take her PM medications. multiple attempts made although pt states that she will not take them. MD Lopez notified
[2021-10-18] VITALS (9 sets, daily range): BP systolic 100–148; BP diastolic 70–93; PULSE 16–130; RESP 14–18; TEMP 36.1–37.2; O2SAT 94–100; BMI 17.4
[2021-10-18 06:30] LABS: MANUAL DIFF FLAG NO
[2021-10-18 06:39] LABS: Basophils Absolute Auto 0.1 X10*3/uL (0.0-0.2); Basophils Percent Auto 0.9 % (0-2); Eosinophils Absolute Auto 0.5 X10*3/uL (0.0-0.4); Hematocrit 37.8 % (37.0-47.0); Hemoglobin 12.3 g/dl (12.0-16.0); Imm Gran Abs Auto 0.02 X10*3/uL (0.00-0.03); Imm Gran Pct Auto 0.3 % (0.0-0.4); Lymphocytes Absolute Auto 1.6 X10*3/uL (1.2-4.9); Lymphocytes Percent Auto 27.6 % (20-40); Mean Corpuscular HGB Conc 32.5 g/dl (31.0-35.0); Mean Corpuscular Hemoglobin 30.6 pg (27.0-33.0); Mean Platelet Volume 12.4 fL (9.4-12.3); Monocytes Absolute Auto 0.6 X10*3/uL (0.1-1.2); Monocytes Percent Auto 10.1 % (2-11); Neutrophils Percent Auto 52.1 % (45-73); Platelet Count 130 X10*3/uL (160-400); Red Blood Count 4.02 X10*6/uL (4.20-5.50); Red Cell Distribution Width 14.8 % (11.0-16.0); White Blood Count 5.8 X10*3/uL (4.8-10.8)
[2021-10-18 07:30] LABS: Anion Gap 14 (12-20); Blood Urea Nitrogen 14 mg/dL (9-16); Calcium 8.5 mg/dL (8.4-10.2); Carbon Dioxide 23 mmol/L (22-29); Chloride 111 mmol/L (96-108); Creatinine Clr Calc Pharmacy 24.8; Estimated Glomerular Filt Rate 42; Glucose Random 90 mg/dL (60-115); Potassium 3.4 mmol/L (3.3-5.1); Sodium 145 mmol/L (135-145)
[2021-10-18] MEDS: dilTIAZem HCL 125 MG in 0.9 % Sodium Chloride 100 ML IVCONT (07:31)
[2021-10-18] MEDS: Apixaban 2.5 MG TABLET PO (07:59)
[2021-10-18] MEDS: amLODIPine Besylate 5 MG TABLET PO (07:59)
[2021-10-18] MEDS: allopurinoL 100 MG TABLET PO (07:59)
[2021-10-18] MEDS: Thiamine HCL 100 MG TABLET 50 MG PO (07:59)
[2021-10-18] MEDS: Metoprolol Tartrate 25 MG TABLET 75 MG PO (07:59)
[2021-10-18 08:10] LABS: Thyroid Stimulating Hormone 1.15 uIU/mL (0.32-4.0)
--- NOTE | 2021-10-18 11:58 | HO.PM.IMPN ---
Subjective Subjective Date of Service: 10/18/21 Interval History: Seen and examined this morning Follow-up for AFib RVR, Heart rate appears improved at this time. Patient reportedly has a history of dementia but is able to answer some basic questions. She is sitting up in bed and is awake, alert, and appears comfortable Review of Systems Review of Systems: Yes all other systems are reviewed and are negative Constitutional Constitutional: Denies chills and Denies fever(s) Cardiovascular Cardiovascular: Denies chest pain, Denies palpitations and Denies dyspnea Respiratory Respiratory: Denies dyspnea Gastrointestinal Gastrointestinal: Denies abdominal pain, Denies nausea and Denies vomiting Endocrine Endocrine: Denies palpitations Physical Exam Vital Signs: Vital Signs: Last Vital Signs Temp 96.9 F 10/18/21 11:00 Pulse 84 10/18/21 11:00 Resp 16 10/18/21 11:00 BP 122/70 10/18/21 11:00 Pulse Ox 98 10/18/21 11:00 BMI result Body Mass Index 17.4 Const: General: comfortable, alert and awake Nutritional Appearance: thin Orientation/consciousness: oriented to person Resp: Effort & Inspection: normal respiratory effort and able to speak in complete sentences Auscultation: clear to auscultation bilaterally Cardio: Rate: regular rate Rhythm: abnormal rhythm irregularly irregular Heart sounds: S1 normal heart sound present and S2 normal heart sound present GI: Palpation (GI): Soft to palpation and nontender : Other: irving draining clear yellow urine Neuro: General: oriented to person Extrem: Other: moving all 4 extremities spontaneously General: Yes no pedal edema Objective Data Active Medications Acetaminophen (Acetaminophen 325 Mg Tablet) 650 mg PO Q6H PRN PRN Reason: Pain, Mild (Pain Scale 1-3) Acetaminophen (Acetaminophen Supp 650 Mg Supp.Rect) 650 mg SC Q6H PRN PRN Reason: Pain, Mild (Pain Scale 1-3) Allopurinol (Allopurinol 100 Mg Tablet) 100 mg PO DAILY [facility] Last Admin: 10/18/21 07:59 Dose: 100 mg Documented by: ESTEVAN Amlodipine Besylate (Amlodipine Besylate 5 Mg Tablet) 5 mg PO DAILY [facility]; Protocol Last Admin: 10/18/21 07:59 Dose: 5 mg Documented by: ESTEVAN Apixaban (Apixaban 2.5 Mg Tablet) 2.5 mg PO BID [facility] Last Admin: 10/18/21 07:59 Dose: 2.5 mg Documented by: ESTEVAN Atorvastatin Calcium (Atorvastatin Calcium 40 Mg Tablet) 40 mg PO BEDTIME [facility] Last Admin: 10/17/21 22:27 Dose: Not Given Documented by: VANDANA Non-Admin Reason: Patient Refused Docusate Sodium (Docusate Sodium 100 Mg Capsule) 100 mg PO DAILY PRN PRN Reason: Constipation Donepezil HCl (Donepezil Hcl 5 Mg Tablet) 5 mg PO BEDTIME [facility] Last Admin: 10/17/21 22:27 Dose: Not Given Documented by: VANDANA Non-Admin Reason: Patient Refused Famotidine (Famotidine 20 Mg Tablet) 20 mg PO BEDTIME [facility] Last Admin: 10/17/21 22:27 Dose: Not Given Documented by: VANDANA Non-Admin Reason: Patient Refused Ceftriaxone Sodium 1 gm/ (Sodium Chloride) 50 mls @ 100 mls/hr IV Q24H [facility] Magnesium Hydroxide (Milk Of Magnesia 30 Ml Oral.Susp) 30 ml PO DAILY PRN PRN Reason: Constipation Metoprolol Tartrate (Metoprolol Tartrate 25 Mg Tablet) 75 mg PO BID [facility]; Protocol Last Admin: 10/18/21 07:59 Dose: 75 mg Documented by: ESTEVAN Ondansetron HCl (Ondansetron Hcl 4 Mg/2 Ml Vial) 4 mg IVPUSH Q8H PRN PRN Reason: Nausea and Vomiting Pharmacy Consult (Consult Rx Perform Med Rec) 1 each MISCELLANE ONCE PRN PRN Reason: Consult order Sodium Chloride (0.9 % Sodium Chloride Flush 3 Ml Syringe) 3 ml IVFLUSH QSHIFT [facility] Last Admin: 10/18/21 08:00 Dose: Not Given Documented by: ESTEVAN Non-Admin Reason: IV Running Thiamine HCl (Thiamine Hcl 100 Mg Tablet) 50 mg PO DAILY [facility] Last Admin: 10/18/21 07:59 Dose: 50 mg Documented by: ESTEVAN Labs CBC & Chem 7: 10/18/21 06:16 10/18/21 06:16 Labs: Laboratory Results - last 24 hr 10/17/21 10/17/21 10/17/21 14:15 14:23 14:23 MCV 94.8 MCH 30.8 MCHC 32.5 RDW 15.0 Plt Count 159 L MPV 12.0 Immature Gran % (Auto) 0.2 Neut % (Auto) 41.0 L Lymph % (Auto) 37.9 [place] % (Auto) 8.0 Eos % (Auto) 12.0 H Baso % (Auto) 0.9 Lymph # (Auto) 2.1 [place] # (Auto) 0.4 Eos # (Auto) 0.7 H Baso # (Auto) 0.1 Abs Immat Gran (auto) 0.01 Absolute Neuts (auto) 2.3 Absolute Nucleated RBC 0.000 Nucleated RBC % (auto) 0.0 Anion Gap 15 Estim Creat Clear Calc 17.2 Estimated GFR 28 Random Glucose 159 H Lactic Acid Lactic Acid F/U @ 2Hr Lactic Acid F/U @ 4Hr Calcium 9.9 D Total Bilirubin 1.5 H Direct Bilirubin 0.5 AST 38 H ALT 19 Alkaline Phosphatase 82 Total Protein 7.3 Albumin 4.1 Lipase 102 H TSH Urine Color Urine Appearance Urine pH Ur Specific [place] Urine Protein Urine Glucose (UA) Urine Ketones Urine Blood Urine Nitrite Ur Leukocyte Esterase Urine RBC Urine WBC Ur Squamous Epith Cells Urine Bacteria Urine Mucus COVID-19 (PHYLLIS) Negative [employer] Com See Note 10/17/21 10/17/21 10/17/21 14:23 17:13 17:36 MCV MCH MCHC RDW Plt Count MPV Immature Gran % (Auto) Neut % (Auto) Lymph % (Auto) [place] % (Auto) Eos % (Auto) Baso % (Auto) Lymph # (Auto) [place] # (Auto) Eos # (Auto) Baso # (Auto) Abs Immat Gran (auto) Absolute Neuts (auto) Absolute Nucleated RBC Nucleated RBC % (auto) Anion Gap Estim Creat Clear Calc Estimated GFR Random Glucose Lactic Acid 2.7 H* Lactic Acid F/U @ 2Hr 2.4 H* Lactic Acid F/U @ 4Hr Calcium Total Bilirubin Direct Bilirubin AST ALT Alkaline Phosphatase Total Protein Albumin Lipase TSH Urine Color YELLOW Urine Appearance HAZY Urine pH 6.5 Ur Specific [place] 1.015 Urine Protein TRACE Urine Glucose (UA) NEG Urine Ketones NEG Urine Blood TRACE Urine Nitrite NEG Ur Leukocyte Esterase NEG Urine RBC 0-2 Urine WBC 0-2 Ur Squamous Epith Cells 3+ Urine Bacteria TRACE Urine Mucus TRACE COVID-19 (PHYLLIS) COVID-19 Clin Com 10/17/21 10/18/21 10/18/21 19:53 06:16 06:16 MCV 94.0 MCH 30.6 MCHC 32.5 RDW 14.8 Plt Count 130 L MPV 12.4 H Immature Gran % (Auto) 0.3 Neut % (Auto) 52.1 Lymph % (Auto) 27.6 [place] % (Auto) 10.1 Eos % (Auto) 9.0 H Baso % (Auto) 0.9 Lymph # (Auto) 1.6 [place] # (Auto) 0.6 Eos # (Auto) 0.5 H Baso # (Auto) 0.1 Abs Immat Gran (auto) 0.02 Absolute Neuts (auto) 3.0 Absolute Nucleated RBC 0.000 Nucleated RBC % (auto) 0.0 Anion Gap 14 Estim Creat Clear Calc 24.8 Estimated GFR 42 Random Glucose 90 Lactic Acid Lactic Acid F/U @ 2Hr Lactic Acid F/U @ 4Hr 1.7 Calcium 8.5 D Total Bilirubin Direct Bilirubin AST ALT Alkaline Phosphatase Total Protein Albumin Lipase TSH 1.15 Urine Color Urine Appearance Urine pH Ur Specific [place] Urine Protein Urine Glucose (UA) Urine Ketones Urine Blood Urine Nitrite Ur Leukocyte Esterase Urine RBC Urine WBC Ur Squamous Epith Cells Urine Bacteria Urine Mucus COVID-19 (PHYLLIS) COVID-19 Clin Com Assessment and Plan (1) Atrial fibrillation with RVR: Status: Acute Plan This is a 71-year-old female with a baseline dementia who comes in from detention for noncompliance with care found to have tachycardia with AFib with RVR AFib with RVR likely secondary to medication noncompliance initially started on diltiazem drip, HR improved, will wean off drip - continue home dose of metoprolol - continue Eliquis UTI patient did not complete her antibiotics for previously diagnosed UTI however urine culture from October 11 suggestive of urogenital contamination urinalysis on this admission not concerning for acute infection - will discontinue antibiotics possible encephalopathy Initial concern over encephalopathy although patient has a history of dementia with behavioral disturbance and was brought in on section 12 due to refusing care and medication pt reports patient baseline is oriented to self only and has started refusing medications recently, but typically can answer simple questions and ambulate independently she seems at her baseline at this time No evidence of active infection at this time elevated lactic acid ? related to dehydration no evidence of infection at this time resolved dementia with behavioral disturbance continue Aricept psych eval for ?med adjustment hypertension BP controlled - continue amlodipine ANJALI on CKD4 resolved with IVF - follow BMP DVT prophylaxis: Queenie Attending: Dr. Gold Quality Stroke Does the patient have a stroke diagnosis?: No VTE Prior VTE?: No VTE Risk Level:: Medical - moderate - high VTE Device Contraindication: Treatment Not Indicated VTE Drug Contraindication: N/A - Med Ordered
--- NOTE | 2021-10-18 12:59 | MHC.CARE ---
CARE Team was consulted to meet with pt to determine appropriate treatment recommendations. Pt is alert and disoriented x3, she is only oriented to who she is. She is difficult to engage and her altered mental status prevented her from participating in the evaluation. CARE Team reached out to pt's for additional information and he explained that pt is difficult to engage. He reports that pt came to ED a few weeks ago for a UTI and was placed at [facility] to give her a break for a couple of weeks as he has been her sole family and marriage counsellor for some time. [facility] social economist reports that she has been trying to explain to pt's that it is not a good idea for pt to return home as she needs around the clock care and would probably be better served on a dementia unit, however, pt's seems to be struggling to accept this. [facility] SW reports that they would consider taking pt back if pt was agreeable with taking medications, attending to her ADLs, did not need a one-to-one, and was eating/drinking. Pt does not meet level of care for inpt psychiatric hospitalization at this time. CARE Team provided recommendations to provider, Denise Vallejo, and case management.
--- NOTE | 2021-10-18 13:34 | MHC.CM.PN ---
PER ROUNDS PT READY FOR DC PT IS ON A BED HOLD FROM [facility] WHO WILL ACCEPT PT BACK PENDING DC PTS NOT REQUIRING IV HALDOL
[2021-10-18] MEDS: 0.9 % Sodium Chloride Flush 3 ML SYRINGE IVFLUSH (15:57)
[2021-10-19 03:34] VITALS: PULSE 108; RESP 14; TEMP 37; O2SAT 97
[2021-10-19] MEDS: 0.9 % Sodium Chloride Flush 3 ML SYRINGE IVFLUSH ×3 (08:38→20:05)
[2021-10-19] MEDS: Thiamine HCL 100 MG TABLET 50 MG PO (08:39)
[2021-10-19] MEDS: allopurinoL 100 MG TABLET PO (08:39)
[2021-10-19] MEDS: amLODIPine Besylate 5 MG TABLET PO (08:39)
[2021-10-19] MEDS: Apixaban 2.5 MG TABLET PO ×2 (08:39→19:59)
[2021-10-19] MEDS: Metoprolol Tartrate 25 MG TABLET 75 MG PO (08:39)
--- NOTE | 2021-10-19 10:28 | P.CNPS_ITS ---
History of Present Illness Date of Service: 10/19/21 Chief Complaint: A fib w RVR, encephalopathy Reason for Consult: medication Requesting physician: Denise Vallejo Discussed with referring provider: Yes Sources of Information: patient interviewed, chart reviewed and crisis/core team assessment reviewed HPI Narrative: Tonya is a 71 y.o. Female who carries a dx of dementia. She presented to [facility] ED on 10/17/21 from her care home due to non-compliance with care, increased confusion. She was admitted to [facility] for presumed encephalopathy, IV antibiotics. During course of hospitalization, pt has had behaviors of trying to get out of bed, pull her IV lines, pushing ED staff, and non-adherent with PO medications. She was recently diagnosed with UTI and was sent to the care home as her was unable to care for her at home, however she has been non-adherent with PO antibiotic at the RN home. Psych consult placed for medication due to pt presenting with behavioral issues related to dementia/ delirium. Per hospitalist, pt has refused PO medications. Pt?s head CT showed old CVAs.? I attempted to evaluate pt this evening, however pt is incoherent, mostly unintelligible in her responses. Pt?s sitter reports that she sometimes will push staff, try to get out of bed, and has difficulty taking direction, but otherwise she is ?rather pleasant.? She reports pt is sleeping at night. Past Psychiatric History: -None Medical Evaluation Reviewed: Yes [facility] Medical History Asthma CKD (chronic kidney disease) Colon cancer Dementia Essential hypertension GERD (gastroesophageal reflux disease) Hypokalemia Pure hypercholesterolemia Surgical History History of bilateral cataract extraction History of laparoscopy Diagnostics Vital Signs (24Hr): Vital Signs - 24 hr 10/18/21 11:00 10/18/21 13:46 10/18/21 15:17 Temperature 96.9 F 98.3 F Pulse Rate 84 84 16 L Respiratory Rate 16 16 Blood Pressure 122/70 122/70 116/93 H Pulse Oximetry 98 98 94 10/18/21 19:00 10/18/21 23:33 10/19/21 03:34 Temperature 97.9 F 98.9 F 98.6 F Pulse Rate 111 H 121 H 108 H Respiratory Rate 14 15 14 Blood Pressure 148/75 H 100/81 Pulse Oximetry 97 100 97 BMI result Body Mass Index 17.4 Labs Results: 10/18/21 06:16 10/18/21 06:16 Labs: Laboratory Results - last 48 hr 10/17/21 10/17/21 10/17/21 14:15 14:23 14:23 WBC 5.5 RBC 4.45 Hgb 13.7 Hct 42.2 MCV 94.8 MCH 30.8 MCHC 32.5 RDW 15.0 Plt Count 159 L MPV 12.0 Immature Gran % (Auto) 0.2 Neut % (Auto) 41.0 L Lymph % (Auto) 37.9 [place] % (Auto) 8.0 Eos % (Auto) 12.0 H Baso % (Auto) 0.9 Lymph # (Auto) 2.1 [place] # (Auto) 0.4 Eos # (Auto) 0.7 H Baso # (Auto) 0.1 Abs Immat Gran (auto) 0.01 Absolute Neuts (auto) 2.3 Absolute Nucleated RBC 0.000 Nucleated RBC % (auto) 0.0 Sodium 145 Potassium 3.5 Chloride 105 Carbon Dioxide 29 Anion Gap 15 BUN 21 H D Creatinine 1.79 H Estim Creat Clear Calc 17.2 Estimated GFR 28 Random Glucose 159 H Lactic Acid Lactic Acid F/U @ 2Hr Lactic Acid F/U @ 4Hr Calcium 9.9 D Total Bilirubin 1.5 H Direct Bilirubin 0.5 AST 38 H ALT 19 Alkaline Phosphatase 82 Total Protein 7.3 Albumin 4.1 Lipase 102 H TSH Urine Color Urine Appearance Urine pH Ur Specific [place] Urine Protein Urine Glucose (UA) Urine Ketones Urine Blood Urine Nitrite Ur Leukocyte Esterase Urine RBC Urine WBC Ur Squamous Epith Cells Urine Bacteria Urine Mucus COVID-19 (PHYLLIS) Negative COVID-19 Clin Com See Note 10/17/21 10/17/21 10/17/21 14:23 17:13 17:36 WBC RBC Hgb Hct MCV MCH MCHC RDW Plt Count MPV Immature Gran % (Auto) Neut % (Auto) Lymph % (Auto) [place] % (Auto) Eos % (Auto) Baso % (Auto) Lymph # (Auto) [place] # (Auto) Eos # (Auto) Baso # (Auto) Abs Immat Gran (auto) Absolute Neuts (auto) Absolute Nucleated RBC Nucleated RBC % (auto) Sodium Potassium Chloride Carbon Dioxide Anion Gap BUN Creatinine Estim Creat Clear Calc Estimated GFR Random Glucose Lactic Acid 2.7 H* Lactic Acid F/U @ 2Hr 2.4 H* Lactic Acid F/U @ 4Hr Calcium Total Bilirubin Direct Bilirubin AST ALT Alkaline Phosphatase Total Protein Albumin Lipase TSH Urine Color YELLOW Urine Appearance HAZY Urine pH 6.5 Ur Specific [place] 1.015 Urine Protein TRACE Urine Glucose (UA) NEG Urine Ketones NEG Urine Blood TRACE Urine Nitrite NEG Ur Leukocyte Esterase NEG Urine RBC 0-2 Urine WBC 0-2 Ur Squamous Epith Cells 3+ Urine Bacteria TRACE Urine Mucus TRACE COVID-19 (PHYLLIS) COVID-19 Clin Com 10/17/21 10/18/21 10/18/21 19:53 06:16 06:16 WBC 5.8 RBC 4.02 L Hgb 12.3 Hct 37.8 MCV 94.0 MCH 30.6 MCHC 32.5 RDW 14.8 Plt Count 130 L MPV 12.4 H Immature Gran % (Auto) 0.3 Neut % (Auto) 52.1 Lymph % (Auto) 27.6 [place] % (Auto) 10.1 Eos % (Auto) 9.0 H Baso % (Auto) 0.9 Lymph # (Auto) 1.6 [place] # (Auto) 0.6 Eos # (Auto) 0.5 H Baso # (Auto) 0.1 Abs Immat Gran (auto) 0.02 Absolute Neuts (auto) 3.0 Absolute Nucleated RBC 0.000 Nucleated RBC % (auto) 0.0 Sodium 145 Potassium 3.4 Chloride 111 H Carbon Dioxide 23 Anion Gap 14 BUN 14 Creatinine 1.24 Estim Creat Clear Calc 24.8 Estimated GFR 42 Random Glucose 90 Lactic Acid Lactic Acid F/U @ 2Hr Lactic Acid F/U @ 4Hr 1.7 Calcium 8.5 D Total Bilirubin Direct Bilirubin AST ALT Alkaline Phosphatase Total Protein Albumin Lipase TSH 1.15 Urine Color Urine Appearance Urine pH Ur Specific [place] Urine Protein Urine Glucose (UA) Urine Ketones Urine Blood Urine Nitrite Ur Leukocyte Esterase Urine RBC Urine WBC Ur Squamous Epith Cells Urine Bacteria Urine Mucus COVID-19 (PHYLLIS) COVID-19 Clin Com Imaging Radiology Impressions: ITS Impressions Chest X-Ray 10/17/21 15:02 IMPRESSION: No acute intrathoracic disease. 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 Shoulder X-Ray 10/17/21 20:50 IMPRESSION: No acute osseous findings at the right shoulder. Head CT 10/18/21 15:46 IMPRESSION: No acute intracranial pathology. 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 Mental Status Exam Mental Status Exam Narrative: A but not Oriented. Petite elder who appears older than her age. Good eye contact, inattentive. No Tics or Tremors. No abnormal involuntary movements. Geovanni m, unable to cooperate in interview due to memory impairment. Non-pressured speech, spontaneous with regular rate and rhythm, normal volume and prosody. Thoughts are confused, unintelligble. Insight/ Judgment is poor. Medications Medications Current Medications Acetaminophen (Acetaminophen 325 Mg Tablet) 650 mg PO Q6H PRN PRN Reason: Pain, Mild (Pain Scale 1-3) Acetaminophen (Acetaminophen Supp 650 Mg Supp.Rect) 650 mg [place] Q6H PRN PRN Reason: Pain, Mild (Pain Scale 1-3) Allopurinol (Allopurinol 100 Mg Tablet) 100 mg PO DAILY [facility] Last Admin: 10/19/21 08:39 Dose: 100 mg Documented by: Amlodipine Besylate (Amlodipine Besylate 5 Mg Tablet) 5 mg PO DAILY [facility]; Protocol Last Admin: 10/19/21 08:39 Dose: 5 mg Documented by: Apixaban (Apixaban 2.5 Mg Tablet) 2.5 mg PO BID [facility] Last Admin: 10/19/21 08:39 Dose: 2.5 mg Documented by: Atorvastatin Calcium (Atorvastatin Calcium 40 Mg Tablet) 40 mg PO BEDTIME [facility] Last Admin: 10/18/21 22:23 Dose: Not Given Documented by: Docusate Sodium (Docusate Sodium 100 Mg Capsule) 100 mg PO DAILY PRN PRN Reason: Constipation Donepezil HCl (Donepezil Hcl 5 Mg Tablet) 5 mg PO BEDTIME [facility] Last Admin: 10/18/21 22:24 Dose: Not Given Documented by: Famotidine (Famotidine 20 Mg Tablet) 20 mg PO BEDTIME [facility] Last Admin: 10/18/21 22:24 Dose: Not Given Documented by: Magnesium Hydroxide (Milk Of Magnesia 30 Ml Oral.Susp) 30 ml PO DAILY PRN PRN Reason: Constipation Metoprolol Tartrate (Metoprolol Tartrate 25 Mg Tablet) 75 mg PO BID [facility]; Protocol Last Admin: 10/19/21 08:39 Dose: 75 mg Documented by: Ondansetron HCl (Ondansetron Hcl 4 Mg/2 Ml Vial) 4 mg IVPUSH Q8H PRN PRN Reason: Nausea and Vomiting Pharmacy Consult (Consult Rx Perform Med Rec) 1 each MISCELLANE ONCE PRN PRN Reason: Consult order Sodium Chloride (0.9 % Sodium Chloride Flush 3 Ml Syringe) 3 ml IVFLUSH QSHIFT [facility] Last Admin: 10/19/21 08:38 Dose: 3 ml Documented by: Thiamine HCl (Thiamine Hcl 100 Mg Tablet) 50 mg PO DAILY [facility] Last Admin: 10/19/21 08:39 Dose: 50 mg Documented by: Allergies Allergies Allergy/AdvReac Type Severity Reaction Status Date / Time NSAIDS (Non-Steroidal AdvReac Severe CONTRAINDICATED Verified 06/24/21 10:17 Anti-Inflamma DUE TO [NSAIDS (NON-STEROIDAL ANEMIA ANTI-INFLAMMA] atorvastatin [From LIPITOR] AdvReac Intermediate MUSCLE PAIN Verified 06/24/21 10:17 Assessment & Plan Assessment & Plan (1) Dementia: Status: Acute Code(s): F03.90 - Unspecified dementia without behavioral disturbance Plan Discussed case with hospitalist and pt?s behaviors have not appeared to have escalated, as she has done well with a sitter. She was given IV ativan and haldol in the ED setting for behavioral disturbance, however has not required this on [facility]. Refusing medication. At this time I am not recommending psychiatric intervention as pt?s behaviors appear to be a function of her dementia, d elikunal. Pt would benefit from [facility] care unit for pt?s with dementia.?If pt's behaviors worsen, psych may be re-consulted. I have shared this with Denise Vallejo Thank you for this consultation. If you have any questions or concerns, please do not hesitate to contact psychiatry service. I spent minutes with the patient and/or on the patient floor today, gre ater than?50% of which was spent counseling/coordinating care.
--- NOTE | 2021-10-19 10:30 | ECG_ITS ---
Test Reason : bradycardia Blood Pressure : / mmHG Vent. Rate : 067 BPM Atrial Rate : 000 BPM P-R Int : 000 ms QRS Dur : 084 ms QT Int : 424 ms P-R-T Axes : 000 101 010 degrees QTc Int : 448 ms Atrial fibrillation Rightward axis Septal infarct , age undetermined Abnormal ECG When compared with ECG of 17-OCT-2021 17:38, Vent. rate has decreased BY 48 BPM Nonspecific T wave abnormality no longer evident in Lateral leads Referred By: Denise Vallejo Electronically Signed By:YONY LEE MD
[2021-10-19 11:41] VITALS: BP 127/57; PULSE 72; RESP 18; TEMP 36.2; O2SAT 96
--- NOTE | 2021-10-19 14:06 | P.PNIM_ITS ---
Subjective Subjective Date of Service: 10/19/21 <PHUC Pak - Last Filed: 10/19/21 14:14> 10/19/21 <Selina Cordova MD - Last Filed: 10/19/21 15:06> Interval History: seen and examined this morning Patient refused medication overnight, no other overnight events awake and alert, answering simple questions, but overall difficult to engage in coversation and obtain full ROS patient noted to have 3 second pause on telemetry this morning <PHUC Pak - Last Filed: 10/19/21 14:14> Review of Systems Review of Systems: Yes Unobtainable due to mental status <PHUC Pak - Last Filed: 10/19/21 14:14> Physical Exam Vital Signs: Vital Signs: Last Vital Signs Temp 97.1 F 10/19/21 11:41 Pulse 72 10/19/21 11:41 Resp 18 10/19/21 11:41 BP 127/57 L 10/19/21 11:41 Pulse Ox 96 10/19/21 11:41 BMI result Body Mass Index 17.4 <PHUC Pak - Last Filed: 10/19/21 14:14> Const: General: comfortable, alert and awake <PHUC Pak - Last Filed: 10/19/21 14:14> Nutritional Appearance: thin <PHUC Pak - Last Filed: 10/19/21 14:14> Orientation/consciousness: oriented to person <PHUC Pak - Last Filed: 10/19/21 14:14> Resp: Effort & Inspection: normal respiratory effort <PHUC Pak - Last Filed: 10/19/21 14:14> Auscultation: clear to auscultation bilaterally <PHUC Pak - Last Filed: 10/19/21 14:14> Cardio: Rate: regular rate <PHUC Pak - Last Filed: 10/19/21 14:14> Rhythm: abnormal rhythm irregularly irregular <PHUC Pak - Last Filed: 10/19/21 14:14> Heart sounds: S1 normal heart sound present and S2 normal heart sound present <PHUC Pak - Last Filed: 10/19/21 14:14> GI: Palpation (GI): Soft to palpation and nontender <PHUC Pak - Last Filed: 10/19/21 14:14> Neuro: General: oriented to person <PHUC Pak - Last Filed: 10/19/21 14:14> Extrem: Other: moving all 4 extremities spontaneously <PHUC Pak - Last Filed: 10/19/21 14:14> General: Yes no pedal edema <PHUC Pak - Last Filed: 10/19/21 14:14> Objective Data Active Medications Acetaminophen (Acetaminophen 325 Mg Tablet) 650 mg PO Q6H PRN PRN Reason: Pain, Mild (Pain Scale 1-3) Acetaminophen (Acetaminophen Supp 650 Mg Supp.Rect) 650 mg SC Q6H PRN PRN Reason: Pain, Mild (Pain Scale 1-3) Allopurinol (Allopurinol 100 Mg Tablet) 100 mg PO DAILY [facility] Last Admin: 10/19/21 08:39 Dose: 100 mg Documented by: ESTEVAN Amlodipine Besylate (Amlodipine Besylate 5 Mg Tablet) 5 mg PO DAILY [facility]; Protocol Last Admin: 10/19/21 08:39 Dose: 5 mg Documented by: ESTEVAN Apixaban (Apixaban 2.5 Mg Tablet) 2.5 mg PO BID [facility] Last Admin: 10/19/21 08:39 Dose: 2.5 mg Documented by: ESTEVAN Atorvastatin Calcium (Atorvastatin Calcium 40 Mg Tablet) 40 mg PO BEDTIME [facility] Last Admin: 10/18/21 22:23 Dose: Not Given Documented by: FLORIN Non-Admin Reason: Patient Refused Docusate Sodium (Docusate Sodium 100 Mg Capsule) 100 mg PO DAILY PRN PRN Reason: Constipation Donepezil HCl (Donepezil Hcl 5 Mg Tablet) 5 mg PO BEDTIME [facility] Last Admin: 10/18/21 22:24 Dose: Not Given Documented by: FLORIN Non-Admin Reason: Patient Refused Famotidine (Famotidine 20 Mg Tablet) 20 mg PO BEDTIME [facility] Last Admin: 10/18/21 22:24 Dose: Not Given Documented by: HO.DESROA Non-Admin Reason: Patient Refused Magnesium Hydroxide (Milk Of Magnesia 30 Ml Oral.Susp) 30 ml PO DAILY PRN PRN Reason: Constipation Metoprolol Tartrate (Metoprolol Tartrate 25 Mg Tablet) 75 mg PO BID [facility]; Protocol Last Admin: 10/19/21 08:39 Dose: 75 mg Documented by: ESTEVAN Ondansetron HCl (Ondansetron Hcl 4 Mg/2 Ml Vial) 4 mg IVPUSH Q8H PRN PRN Reason: Nausea and Vomiting Pharmacy Consult (Consult Rx Perform Med Rec) 1 each MISCELLANE ONCE PRN PRN Reason: Consult order Sodium Chloride (0.9 % Sodium Chloride Flush 3 Ml Syringe) 3 ml IVFLUSH QSHIFT [facility] Last Admin: 10/19/21 08:38 Dose: 3 ml Documented by: ESTEVAN Thiamine HCl (Thiamine Hcl 100 Mg Tablet) 50 mg PO DAILY [facility] Last Admin: 10/19/21 08:39 Dose: 50 mg Documented by: ESTEVAN <PHUC Pak - Last Filed: 10/19/21 14:14> Labs CBC & Chem 7: : 10/18/21 06:16 10/18/21 06:16 <PHUC Pak - Last Filed: 10/19/21 14:14> Microbiology Microbiology Results: Microbiology 10/17/21 14:23 Blood Culture - Preliminary Blood - Venous No growth after 24 hours. 10/17/21 14:23 Blood Culture - Preliminary Blood - Venous No growth after 24 hours. <PHUC Pak - Last Filed: 10/19/21 14:14> Assessment and Plan (1) Atrial fibrillation with RVR: Status: Acute <PHUC Pak - Last Filed: 10/19/21 14:14> Plan This is a 71-year-old female with a baseline dementia who comes in from halfway for noncompliance with care found to have tachycardia with AFib with RVR AFib with RVR likely secondary to medication noncompliance initially started on diltiazem drip, HR improved, will wean off drip pt with HR 40s-60s this morning and then 3 second pause noted has only been getting am dose of BB - continue home dose of metoprolol - continue Eliquis - cardiology consult pending UTI patient did not complete her antibiotics for previously diagnosed UTI however urine culture from October 11 suggestive of urogenital contamination urinalysis on this admission not concerning for acute infection - will discontinue antibiotics possible encephalopathy Initial concern over encephalopathy although patient has a history of dementia with behavioral disturbance and was brought in on section 12 due to refusing care and medication pt reports patient baseline is oriented to self only and has started refusing medications recently, but typically can answer simple questions and ambulate independently she seems at her baseline at this time No evidence of active infection at this time everything likely r/t to dementia seen by psych no need for med adjustment elevated lactic acid ? related to dehydration no evidence of infection at this time resolved dementia with behavioral disturbance continue Aricept seen by psych - no need for med adjustment at this time hypertension BP controlled - continue amlodipine ANJALI on CKD4 resolved with IVF - follow BMP DVT prophylaxis: Queenie Attending: Dr. Gold pt requires ongoing inpatient hospitalization due to need for close telemetry monitoring due to sinus pause, tachy/Medardo episodes plan to return to [facility] as early as tomorrow <PUHC Pak - Last Filed: 10/19/21 14:14> Quality Stroke Does the patient have a stroke diagnosis?: No <PHUC Pak - Last Filed: 10/19/21 14:14> VTE Prior VTE?: No <PHUC Pak - Last Filed: 10/19/21 14:14> VTE Risk Level:: Medical - moderate - high <PHUC Pak - Last Filed: 10/19/21 14:14> VTE Device Contraindication: Treatment Not Indicated <PHUC Pak - Last Filed: 10/19/21 14:14> VTE Drug Contraindication: N/A - Med Ordered <PHUC Pak - Last Filed: 10/19/21 14:14>
[2021-10-19 15:45] VITALS: BP 90/67; PULSE 104; RESP 18; TEMP 37.1; O2SAT 98
[2021-10-19] MEDS: Atorvastatin Calcium 40 MG TABLET PO (19:59)
[2021-10-19] MEDS: Famotidine 20 MG TABLET PO (19:59)
[2021-10-19] MEDS: Donepezil HCl 5 MG TABLET PO (19:59)
[2021-10-19 20:00] VITALS: BP 118/75; PULSE 104; RESP 18; TEMP 36.2; O2SAT 95
[2021-10-20] VITALS (7 sets, daily range): BP systolic 122–156; BP diastolic 66–91; PULSE 90–133; RESP 17–20; TEMP 36.4–37.1; O2SAT 95–99
[2021-10-20] MEDS: allopurinoL 100 MG TABLET PO (08:23)
[2021-10-20] MEDS: Apixaban 2.5 MG TABLET PO ×2 (08:23→19:47)
[2021-10-20] MEDS: 0.9 % Sodium Chloride Flush 3 ML SYRINGE IVFLUSH ×3 (08:23→19:48)
[2021-10-20] MEDS: Thiamine HCL 100 MG TABLET 50 MG PO (08:23)
[2021-10-20] MEDS: amLODIPine Besylate 5 MG TABLET PO (08:23)
--- NOTE | 2021-10-20 10:22 | P.PNIM_ITS ---
Subjective Subjective Date of Service: 10/20/21 <PHUC Pak - Last Filed: 10/20/21 10:32> 10/20/21 <Selina Cordova MD - Last Filed: 10/20/21 16:07> Interval History: seen and examined this morning follow up for afib patient awake, alert and resting in bed comfortably; answering simple questions, but unable to obtain formal ROS <PHUC Pak - Last Filed: 10/20/21 10:32> Review of Systems Review of Systems: Yes Unobtainable due to mental status <PHUC Pak - Last Filed: 10/20/21 10:32> Physical Exam Vital Signs: Vital Signs: Last Vital Signs Temp 97.5 F 10/20/21 07:49 Pulse 120 H 10/20/21 07:49 Resp 20 10/20/21 07:49 BP 122/79 10/20/21 07:49 Pulse Ox 97 10/20/21 07:49 BMI result Body Mass Index 17.4 <PHUC Pak - Last Filed: 10/20/21 10:32> Const: General: comfortable, alert and awake <PHUC Pak - Last Filed: 10/20/21 10:32> Nutritional Appearance: thin <PHUC Pak - Last Filed: 10/20/21 10:32> Orientation/consciousness: oriented to person <PHUC Pak - Last Filed: 10/20/21 10:32> Eyes: Pupils: Equal, round and reactive pupils present <PHUC Pak Last Filed: 10/20/21 10:32> EOM: EOMs intact bilaterally <PHUC Pak - Last Filed: 10/20/21 10:32> Resp: Effort & Inspection: normal respiratory effort and able to speak in complete sentences <PHUC Pak Last Filed: 10/20/21 10:32> Auscultation: clear to auscultation bilaterally <PHUC Pak Last Filed: 10/20/21 10:32> Cardio: Rate: tachycardic <PHUC Pak - Last Filed: 10/20/21 10:32> Rhythm: abnormal rhythm irregularly irregular <PHUC Pak Last Filed: 10/20/21 10:32> Heart sounds: S1 normal heart sound present and S2 normal heart sound present <PHUC Pak - Last Filed: 10/20/21 10:32> GI: Palpation (GI): Soft to palpation and nontender <PHUC Pak Last Filed: 10/20/21 10:32> : Other: irving draining clear yellow urine <PHUC Pak Last Filed: 10/20/21 10:32> Neuro: Other: able to follow simple commands <PHUC Pak Last Filed: 10/20/21 10:32> General: oriented to person <PHUC Pak Last Filed: 10/20/21 10:32> Cranial nerves: Yes Equal, round and reactive pupils present <PHUC Pak Last Filed: 10/20/21 10:32> Extrem: Other: moving all 4 extremities spontaneously <PHUC Pak Last Filed: 10/20/21 10:32> General: Yes no pedal edema <PHUC Pak Last Filed: 10/20/21 10:32> Objective Data Active Medications Acetaminophen (Acetaminophen 325 Mg Tablet) 650 mg PO Q6H PRN PRN Reason: Pain, Mild (Pain Scale 1-3) Acetaminophen (Acetaminophen Supp 650 Mg Supp.Rect) 650 mg IA Q6H PRN PRN Reason: Pain, Mild (Pain Scale 1-3) Allopurinol (Allopurinol 100 Mg Tablet) 100 mg PO DAILY [facility] Last Admin: 10/20/21 08:23 Dose: 100 mg Documented by: ESTEVAN Amlodipine Besylate (Amlodipine Besylate 5 Mg Tablet) 5 mg PO DAILY [facility]; Protocol Last Admin: 10/20/21 08:23 Dose: 5 mg Documented by: ESTEVAN Apixaban (Apixaban 2.5 Mg Tablet) 2.5 mg PO BID [facility] Last Admin: 10/20/21 08:23 Dose: 2.5 mg Documented by: ESTEVAN Atorvastatin Calcium (Atorvastatin Calcium 40 Mg Tablet) 40 mg PO BEDTIME [facility] Last Admin: 10/19/21 19:59 Dose: 40 mg Documented by: FLORIN Docusate Sodium (Docusate Sodium 100 Mg Capsule) 100 mg PO DAILY PRN PRN Reason: Constipation Donepezil HCl (Donepezil Hcl 5 Mg Tablet) 5 mg PO BEDTIME [facility] Last Admin: 10/19/21 19:59 Dose: 5 mg Documented by: FLORIN Famotidine (Famotidine 20 Mg Tablet) 20 mg PO BEDTIME [facility] Last Admin: 10/19/21 19:59 Dose: 20 mg Documented by: FLORIN Magnesium Hydroxide (Milk Of Magnesia 30 Ml Oral.Susp) 30 ml PO DAILY PRN PRN Reason: Constipation Metoprolol Tartrate (Metoprolol Tartrate 25 Mg Tablet) 75 mg PO BID [facility]; Protocol Last Admin: 10/19/21 08:39 Dose: 75 mg Documented by: ESTEVAN Ondansetron HCl (Ondansetron Hcl 4 Mg/2 Ml Vial) 4 mg IVPUSH Q8H PRN PRN Reason: Nausea and Vomiting Pharmacy Consult (Consult Rx Perform Med Rec) 1 each MISCELLANE ONCE PRN PRN Reason: Consult order Sodium Chloride (0.9 % Sodium Chloride Flush 3 Ml Syringe) 3 ml IVFLUSH QSHIFT [facility] Last Admin: 10/20/21 08:23 Dose: 3 ml Documented by: ESTEVAN Thiamine HCl (Thiamine Hcl 100 Mg Tablet) 50 mg PO DAILY [facility] Last Admin: 10/20/21 08:23 Dose: 50 mg Documented by: ESTEVAN <PHUC Pak - Last Filed: 10/20/21 10:32> Labs CBC & Chem 7: : 10/18/21 06:16 10/18/21 06:16 <PHUC Pak - Last Filed: 10/20/21 10:32> Microbiology Microbiology Results: Microbiology 10/17/21 14:23 Blood Culture - Preliminary Blood - Venous No growth after 48 hours. 10/17/21 14:23 Blood Culture - Preliminary Blood - Venous No growth after 48 hours. <PHUC Pak - Last Filed: 10/20/21 10:32> Assessment and Plan (1) Atrial fibrillation with RVR: Status: Acute <PHUC Pak - Last Filed: 10/20/21 10:32> (2) Dementia: Status: Acute <PHUC Pak - Last Filed: 10/20/21 10:32> Plan This is a 71-year-old female with a baseline dementia who comes in from skilled nursing for noncompliance with care found to have tachycardia with AFib with RVR AFib with RVR HR has been variable; initially tachycardic and started on diltiazem drip, HR improved and drip weaned off pt intermittently refusing medications 10/19 HR 40s-60s and 3 second pause noted BB on hold for now - continue Eliqurenate - cardiology consult pending possible encephalopathy Initial concern over encephalopathy although patient has a history of dementia with behavioral disturbance and was brought in on section 12 due to refusing care and medication pt reports patient baseline is oriented to self only and has started refusing medications recently, but typically can answer simple questions and ambulate independently she seems at her baseline at this time No evidence of active infection, brain CT with no acute changes seen by psych no need for med adjustment UTI patient did not complete her antibiotics for previously diagnosed UTI however urine culture from October 11 suggestive of urogenital contamination urinalysis on this admission not concerning for acute infection - will dis continue antibiotics elevated lactic acid ? related to dehydration no evidence of infection at this time resolved dementia with behavioral disturbance continue Aricept seen by psych - no need for med adjustment at this time hypertension BP controlled - continue amlodipine ANJALI on CKD4 resolved with IVF - follow BMP gerd continue prilosec HLD continue statin DVT prophylaxis: Queenie Attending: Dr. Gold pt requires ongoing inpatient hospitalization due to need for close telemetry monitoring due to sinus pause, tachy/Medardo episodes plan to return to [facility] Thursday, may need transition to dementia unit in future <PHUC Pak - Last Filed: 10/20/21 10:32> Quality Stroke Does the patient have a stroke diagnosis?: No <PHUC Pak - Last Filed: 10/20/21 10:32> VTE Prior VTE?: No <PHUC Pak - Last Filed: 10/20/21 10:32> VTE Risk Level:: Medical - moderate - high <PHUC Pak - Last Filed: 10/20/21 10:32> VTE Device Contraindication: Treatment Not Indicated <PHUC Pak - Last Filed: 10/20/21 10:32> VTE Drug Contraindication: N/A - Med Ordered <PHUC Pak - Last Filed: 10/20/21 10:32>
--- NOTE | 2021-10-20 13:04 | P.CONCA_ITS ---
History of Present Illness History of Present Illness Date of Service: 10/20/21 Requesting physician: Denise Vallejo Consult reason: atrial fibrillation Chief complaint: A fib w RVR, encephalopathy Narrative: I was consulted to see the patient for management of atrial fibrillation rate controlled. Patient is confused and not able to provide history. History obtained from the chart. Patient brought to the emergency room with altered mental status and was noted to be encephalopathic and noted to be in atrial fibrillation with rapid ventricular response her blood pressure is stable. She was on admission was noted to have lactic acidosis without any obvious source of infection suspected to be due to dehydration. Patient was brought to the emergency room and she was noncompliant with a care and refusing to take her medications. Since being in the hospital she has been intermittently refusing her medications. Heart rate today has been elevated. She is getting metoprolol 75 mg b.i.d.. With getting 75 mg she is noted to have slower heart rate with heart rate of 40-60s with pauses up to 3 seconds. Because of this and rapid heart rate cardiology consult was sought. Patient is denying any cardiac symptoms to me. However she seems to be confused she denies any symptoms of palpitations or chest pain or shortness of breath. She appears comfortable. She responds appropriately to questions. She tells me that she has not been refusing her medications. Review of Systems Review of Systems: Yes Unobtainable due to mental status Neurologic: Reports confusion Psychiatric: Psychiatric: Reports confusion [facility] Past Medical History Medical History Asthma CKD (chronic kidney disease) Colon cancer Dementia Essential hypertension GERD (gastroesophageal reflux disease) Hypokalemia Pure hypercholesterolemia Family History Family History Father No problems noted. Mother No problems noted. Surgical History Surgical History History of bilateral cataract extraction History of laparoscopy Social History Social History Household Members: None Housing: Residential Unable to assess alcohol history related to: Unknown Alcohol intake: never Patient Tobacco Use Status: Former Tobacco user e-Cigarette/Vaping Use: Never Used Second Hand Smoke Exposure: No Use of substances other than those prescribed or required for medical reasons: Unknown Currently Displaying Signs/Symptoms of Drug Intoxication Withdrawal: No Any prior treatment program specific to substance use: No Advance Directives: Yes Advance Directives on File: Yes Advance Directives Date on File: 10/11/21 Do you have thoughts of harming others: None Do you have a plan to hurt others: No Plan service: No Current occupational status: retired and disabled Meds Allergies Allergy/AdvReac Type Severity Reaction Status Date / Time NSAIDS (Non-Steroidal AdvReac Severe CONTRAINDICATED Verified 06/24/21 10:17 Anti-Inflamma DUE TO [NSAIDS (NON-STEROIDAL ANEMIA ANTI-INFLAMMA] atorvastatin [From LIPITOR] AdvReac Intermediate MUSCLE PAIN Verified 06/24/21 10:17 Active Medications: Current Medications Acetaminophen (Acetaminophen 325 Mg Tablet) 650 mg PO Q6H PRN PRN Reason: Pain, Mild (Pain Scale 1-3) Acetaminophen (Acetaminophen Supp 650 Mg Supp.Rect) 650 mg [place] Q6H PRN PRN Reason: Pain, Mild (Pain Scale 1-3) Allopurinol (Allopurinol 100 Mg Tablet) 100 mg PO DAILY [facility] Last Admin: 10/20/21 08:23 Dose: 100 mg Documented by: Amlodipine Besylate (Amlodipine Besylate 5 Mg Tablet) 5 mg PO DAILY [facility]; Protocol Last Admin: 10/20/21 08:23 Dose: 5 mg Documented by: Apixaban (Apixaban 2.5 Mg Tablet) 2.5 mg PO BID [facility] Last Admin: 10/20/21 08:23 Dose: 2.5 mg Documented by: Atorvastatin Calcium (Atorvastatin Calcium 40 Mg Tablet) 40 mg PO BEDTIME [facility] Last Admin: 10/19/21 19:59 Dose: 40 mg Documented by: Docusate Sodium (Docusate Sodium 100 Mg Capsule) 100 mg PO DAILY PRN PRN Reason: Constipation Donepezil HCl (Donepezil Hcl 5 Mg Tablet) 5 mg PO BEDTIME [facility] Last Admin: 10/19/21 19:59 Dose: 5 mg Documented by: Famotidine (Famotidine 20 Mg Tablet) 20 mg PO BEDTIME [facility] Last Admin: 10/19/21 19:59 Dose: 20 mg Documented by: Magnesium Hydroxide (Milk Of Magnesia 30 Ml Oral.Susp) 30 ml PO DAILY PRN PRN Reason: Constipation Metoprolol Tartrate (Metoprolol Tartrate 50 Mg Tablet) 50 mg PO Q6H [facility]; Protocol Ondansetron HCl (Ondansetron Hcl 4 Mg/2 Ml Vial) 4 mg IVPUSH Q8H PRN PRN Reason: Nausea and Vomiting Pharmacy Consult (Consult Rx Perform Med Rec) 1 each MISCELLANE ONCE PRN PRN Reason: Consult order Sodium Chloride (0.9 % Sodium Chloride Flush 3 Ml Syringe) 3 ml IVFLUSH QSHIFT [facility] Last Admin: 10/20/21 08:23 Dose: 3 ml Documented by: Thiamine HCl (Thiamine Hcl 100 Mg Tablet) 50 mg PO DAILY [facility] Last Admin: 10/20/21 08:23 Dose: 50 mg Documented by: Home Medications Medication Instructions Recorded Confirmed Last Taken Type famotidine 20 mg tablet 20 mg PO BEDTIME tab 03/21/21 10/17/21 10/09/21 History allopurinol 100 mg tablet 100 mg PO DAILY 05/30/21 10/17/21 10/11/21 History rosuvastatin 10 mg tablet 10 mg PO BEDTIME 10/11/21 10/17/21 10/09/21 History bisacodyl 10 mg rectal suppository 10 mg LA DAILY PRN 10/17/21 10/17/21 Unknown History cefuroxime axetil 250 mg tablet 250 mg PO BID 10/17/21 10/17/21 Unknown History magnesium hydroxide 400 mg/5 mL 30 ml PO DAILY PRN 10/17/21 10/17/21 Unknown History oral suspension Physical Exam Vital Signs: Vital Signs: Last Vital Signs Temp 98.7 F 10/20/21 12:00 Pulse 95 10/20/21 12:00 Resp 20 10/20/21 12:00 BP 133/66 10/20/21 12:00 Pulse Ox 96 10/20/21 12:00 BMI result Body Mass Index 17.4 Const: General: cooperative, comfortable, no acute distress, alert, awake and confusion Nutritional Appearance: thin Orientation/consciousness: confusion HEENT: Head: Yes normocephalic and Yes atraumatic Neck: Neck: Yes trachea midline, Yes supple and Yes no JVD Resp: Effort & Inspection: normal respiratory effort Auscultation: clear to auscultation bilaterally Cardio: Jugular venous distension: no JVD Rate: tachycardic Rhythm: abnormal rhythm irregularly irregular Heart sounds: S1 normal heart sound present and S2 normal heart sound present GI: Auscultation: normal bowel sounds Neuro: General: no focal motor deficits and confusion Extrem: General: Yes no clubbing, cyanosis or edema Objective Labs and Meds Result diagrams: 10/18/21 06:16 10/18/21 06:16 Assessment and Plan (1) Atrial fibrillation with RVR: Status: Acute Atrial fibrillation with difficult control rate with patient taking meds her heart rate is well controlled with pauses of 3 seconds which is not unusual in patients with atrial fibrillation. She has no symptoms. No pacing therapy is required. I think the difficulty is giving her medications and she taking her medication without refusing it. I would reduce her acute does of oral medicati on to 50 mg and spread it out q.8 hours. Hopefully this will lead to better rate control. Hopefully she takes her medications. This was discussed with her and she says she would take her medications although she is unreliable as she is confused. Continue apixaban if she takes it. Continue other supportive care. Will sign of the case at this point time Procedures Date of Service Date of Service: 10/20/21
[2021-10-20] MEDS: Metoprolol Tartrate 50 MG TABLET PO ×3 (13:29→23:46)
[2021-10-20] MEDS: Atorvastatin Calcium 40 MG TABLET PO (19:47)
[2021-10-20] MEDS: Donepezil HCl 5 MG TABLET PO (19:47)
[2021-10-20] MEDS: Famotidine 20 MG TABLET PO (19:47)
[2021-10-21] VITALS (8 sets, daily range): BP systolic 97–139; BP diastolic 56–90; PULSE 78–104; RESP 16–20; TEMP 36.3–36.9; O2SAT 93–97
[2021-10-21] MEDS: Metoprolol Tartrate 50 MG TABLET PO ×3 (06:03→17:09)
[2021-10-21] MEDS: amLODIPine Besylate 5 MG TABLET PO (09:13)
[2021-10-21] MEDS: Thiamine HCL 100 MG TABLET 50 MG PO (09:13)
[2021-10-21] MEDS: 0.9 % Sodium Chloride Flush 3 ML SYRINGE IVFLUSH ×3 (09:14→19:59)
[2021-10-21] MEDS: Apixaban 2.5 MG TABLET PO ×2 (09:14→19:58)
[2021-10-21] MEDS: allopurinoL 100 MG TABLET PO (09:14)
--- NOTE | 2021-10-21 12:25 | MHC.CLN ---
F/U PO INTAKE VARIABLE DIET RX: CHOPPED-APPROPRIATE PT RECEIVING ENSURE BID PROVIDES 700KCALS, 40G PROTEIN CONTINUE TO MONITOR PO INTAKE CLOSELY
--- NOTE | 2021-10-21 13:30 | MHC.CM.PN ---
This auto service writer spoke w/ SW @ [facility] at facility from [facility] on 10[place]12, on respite stay. They are unable to accept patient back @ facility d/t exit seeking and wandering. Made primary SW @ [facility] aware. Plan to dis cuss w/ for alternate discharge plans.
--- NOTE | 2021-10-21 13:56 | P.PNIM_ITS ---
Subjective Subjective Date of Service: 10/21/21 Interval History: at bedside; pt calm + cooperative. HR now in 90s. [facility] unable to take pt back due to exit-seeking/wandering. Review of Systems Review of Systems: Yes Unobtainable due to mental status Physical Exam Vital Signs: Vital Signs: Last Vital Signs Temp 97.8 F 10/21/21 11:31 Pulse 83 10/21/21 11:31 Resp 20 10/21/21 11:31 BP 97/62 10/21/21 11:31 Pulse Ox 96 10/21/21 11:31 BMI result Body Mass Index 17.4 Gen: in no acute distress HEENT: sclera anicteric, moist mucus membranes Neck: supple Lungs: clear to auscultation bilaterally Heart: irregular, no murmurs Abd: soft, non-tender, non-distended Ext: no edema Skin: warm/well-perfused Neuro: alert and oriented to self only Psych: imparied insihgt Objective Data Active Medications Acetaminophen (Acetaminophen 325 Mg Tablet) 650 mg PO Q6H PRN PRN Reason: Pain, Mild (Pain Scale 1-3) Acetaminophen (Acetaminophen Supp 650 Mg Supp.Rect) 650 mg AL Q6H PRN PRN Reason: Pain, Mild (Pain Scale 1-3) Allopurinol (Allopurinol 100 Mg Tablet) 100 mg PO DAILY [facility] Last Admin: 10/21/21 09:14 Dose: 100 mg Documented by: CARLEEN Amlodipine Besylate (Amlodipine Besylate 5 Mg Tablet) 5 mg PO DAILY [facility]; Protocol Last Admin: 10/21/21 09:13 Dose: 5 mg Documented by: CARLEEN Apixaban (Apixaban 2.5 Mg Tablet) 2.5 mg PO BID [facility] Last Admin: 10/21/21 09:14 Dose: 2.5 mg Documented by: CARLEEN Atorvastatin Calcium (Atorvastatin Calcium 40 Mg Tablet) 40 mg PO BEDTIME [facility] Last Admin: 10/20/21 19:47 Dose: 40 mg Documented by: NAUMOC Docusate Sodium (Docusate Sodium 100 Mg Capsule) 100 mg PO DAILY PRN PRN Reason: Constipation Donepezil HCl (Donepezil Hcl 5 Mg Tablet) 5 mg PO BEDTIME [facility] Last Admin: 10/20/21 19:47 Dose: 5 mg Documented by: JOSE M Famotidine (Famotidine 20 Mg Tablet) 20 mg PO BEDTIME [facility] Last Admin: 10/20/21 19:47 Dose: 20 mg Documented by: JOSE M Magnesium Hydroxide (Milk Of Magnesia 30 Ml Oral.Susp) 30 ml PO DAILY PRN PRN Reason: Constipation Metoprolol Tartrate (Metoprolol Tartrate 50 Mg Tablet) 50 mg PO Q8H [facility]; Protocol Last Admin: 10/21/21 09:13 Dose: 50 mg Documented by: CARLEEN Ondansetron HCl (Ondansetron Hcl 4 Mg/2 Ml Vial) 4 mg IVPUSH Q8H PRN PRN Reason: Nausea and Vomiting Pharmacy Consult (Consult Rx Perform Med Rec) 1 each MISCELLANE ONCE PRN PRN Reason: Consult order Sodium Chloride (0.9 % Sodium Chloride Flush 3 Ml Syringe) 3 ml IVFLUSH QSHIFT [facility] Last Admin: 10/21/21 09:14 Dose: 3 ml Documented by: CARLEEN Thiamine HCl (Thiamine Hcl 100 Mg Tablet) 50 mg PO DAILY [facility] Last Admin: 10/21/21 09:13 Dose: 50 mg Documented by: CARLEEN Labs CBC & Chem 7: 10/18/21 06:16 10/18/21 06:16 Microbiology Microbiology Results: Microbiology 10/17/21 14:23 Blood Culture - Preliminary Blood - Venous Prelim: GPC Gram Stain only Assessment and Plan (1) Atrial fibrillation with RVR: Status: Acute (2) Dementia: Status: Acute Plan hospital d#5 71yo F with dementia sent in from SNF where she was for STR. Sent in for nonadherence with care and found to have AF/RVR # AF/RVR - off diltiazem gtt - 2 days ago had bradycardia with 3-second pause - Cardiology following; metoprolol q8h; HR now appropriate - pt was intermittently refusing medications but now is adherent - apixaban for AC # dementia with behavioral disturbance - initial concern over encephalopathy, although patient has a history of dementia with behavioral disturbance and was brought in on section 12 due to refusing care and medication; pt's reports patient at baseline is oriented to self only and has started refusing medications recently, but typically can answer simple questions and ambulate independently; she seems at her baseline at this time - no evidence of active infection, brain CT with no acute changes - seen by psych; no need for med adjustment - continue donepezil # UTI - patient did not complete her antibiotics for previously diagnosed UTI; however urine culture from October 11 suggestive of urogenital contamination - urinalysis on this admission not concerning for acute infection - will discontinue antibiotics # elevated lactic acid - possibly related to dehydration; no evidence of infection at this time - resolved # HTN - BP controlled; continue amlodipine + metoprolol # ANJALI on CKD4 - resolved with IV fluid hydration # GERD - continue PPI # HLD - continue statin # VTE ppx - apixaban # dispo - cannot go back to [facility], may need locked unit, RODGER working on discharge plans In my clinical judgment, the patient requires continued hospitalization for the following reasons: safe discharge plan Quality Stroke Does the patient have a stroke diagnosis?: No VTE Prior VTE?: No VTE Risk Level:: Medical - moderate - high VTE Device Contraindication: Treatment Not Indicated VTE Drug Contraindication: N/A - Med Ordered
--- NOTE | 2021-10-21 14:04 | P.CDIC_ITS ---
CDI Concurrent Query Documentation Clarification: PHYSICIAN'S DOCUMENTATION REQUEST Date of Query: 10/21/21 1408 Patient Name: Tonya Nieves Admit Date: 10/17/21 Dear Doctor, A review of the medical record indicates additional documentation may be needed. Please review below and update the documentation accordingly. Clinical Indicators: Risk Factors/Clinical Indicators/Treatments Altered mental status per ED Dementia with behavioral disturbance per H&P Treated with Aricept Based on the above, could you clarify in the Progress Notes which, if any of the following, is the most likely etiology of the confusion/altered mental status? * Encephalopathy - indicate type such as metabolic, toxic, septic, alcoholic, hypertensive, etc. * Dementia - indicate type of dementia, such as Alzheimer's, senile, vascular, Lewy body, etc. * Baseline dementia - indicate type, such as Alzheimer's, senile, vascular, Lewy body, etc., and any associated behavioral disturbances (aggressive, combative, or violent behavior) * Other etiology (please specify) * Unable to determine Use of terms such as suspected, likely, concern for, or probable (associated with a specific diagnosis that is being evaluated, monitored, or treated as if it exists) are acceptable and can be coded in the inpatient setting, when documented at the time of discharge. Thank you, Sushila Mon RN Extension: [phone] Please use your independent medical judgment in providing your response. THIS QUERY IS PART OF THE PERMANENT MEDICAL RECORD Provider Response: Other Other Diagnosis: baseline dementia see brittaney note
--- NOTE | 2021-10-21 14:11 | P.CDIC_ITS ---
CDI Concurrent Query Documentation Clarification: PHYSICIAN'S DOCUMENTATION REQUEST Date of Query: 10/21/21 1411 Patient Name: Tonya Nieves Admit Date: 10/17/21 Dear Doctor, A review of the medical record indicates additional documentation may be needed. Please review below and update the documentation accordingly. Clinical Indicators: Height: [] 4'11 Weight: [] 39.009 kg BMI: [] 17.4 Other Clinical Notes Supporting Significance of the BMI: Risk Factors/Clinical Indicators/Treatments Per Nutrition Assessment 10/18/21: unable to assess body fat, muscle mass, or fluid accumulation. Underweight but hands and face do not appear malnourished. Dementia with combativeness, striking out Add Ensure BID If possible, please provide an associated diagnosis related to the abnormal BMI, such as: For a BMI <= 19: * Underweight * Weight loss * Cachexia * Anorexia Or: * BMI is not significant * Other (please specify) * Unable to determine Use of terms such as suspected, likely, concern for, or probable (associated with a specific diagnosis that is being evaluated, monitored, or treated as if it exists) are acceptable and can be coded in the inpatient setting, when documented at the time of discharge. Thank you, Sushila Mon [insert CDI's credentials] Extension: [4-digit phone extension] Please use your independent medical judgment in providing your response. THIS QUERY IS PART OF THE PERMANENT MEDICAL RECORD Provider Response: Other Other Diagnosis: underweight
--- NOTE | 2021-10-21 14:12 | MHC.CM.PN ---
[facility] will not be able to accept pt back spoke with pts and hcp who was suprised to learn that pt was not returning to [place] ,he is not prepared to take pt home at this time feeling she needs more rehab he reports that amanda at [facility] had made referal for agencies for him ,when i contacted amanda she said the referral was for juan[facility]..pt had been at [facility] in the past ,additional referrals will be made to rehabs
--- NOTE | 2021-10-21 14:24 | P.CDIC_ITS ---
CDI Concurrent Query Documentation Clarification: PHYSICIAN'S DOCUMENTATION REQUEST Date of Query: 10/21/21 1424 Patient Name: Tonya Nieves Admit Date: 10/17/21 Dear Doctor, A review of the medical record indicates additional documentation may be needed. Please review below and update the documentation accordingly. Clinical Indicators: Risk Factors/Clinical Indicators/Treatments Per Cardiology note 10/20/21: Atrial fibrillation with difficult control rate with patient taking meds her heart rate is well controlled with pauses of 3 seconds which is not unusual in patients with atrial fibrillation.? She has no symptoms.? No pacing therapy is required.?Difficulty is giving her medications Patient refuses medications If possible, please provide further specificity regarding atrial fibrillation, such as: * Paroxysmal atrial fibrillation: terminates spontaneously or with intervention within 7 days of onset. * Persistent atrial fibrillation: episodes of continuous AF that last more than 7 days and do not self-terminate. * Long lasting persistent atrial fibrillation: episodes of continuous AF that last more than 12 months, * Chronic or Permanent atrial fibrillation: when a decision has been made to accept the presence of AF and there is no further attempt to restore or mainta in sinus rhythm. * Other (please specify) * Unable to determine Use of terms such as suspected, likely, concern for, or probable (associated with a specific diagnosis that is being evaluated, monitored, or treated as if it exists) are acceptable and can be coded in the inpatient setting, when documented at the time of discharge. Thank you, Sushila Mon RN Extension: [phone] Please use your independent medical judgment in providing your response. THIS QUERY IS PART OF THE PERMANENT MEDICAL RECORD Provider Response: Other Other Diagnosis: persistent AF
[2021-10-21] MEDS: Atorvastatin Calcium 40 MG TABLET PO (19:58)
[2021-10-21] MEDS: Donepezil HCl 5 MG TABLET PO (19:58)
[2021-10-21] MEDS: Famotidine 20 MG TABLET PO (19:58)
[2021-10-22] MEDS: Metoprolol Tartrate 50 MG TABLET PO ×3 (00:21→17:46)
[2021-10-22 03:52] VITALS: BP 113/55; PULSE 78; RESP 17; TEMP 36.4; O2SAT 97
[2021-10-22] MEDS: Acetaminophen 325 MG TABLET 650 MG PO (04:28)
[2021-10-22 08:00] VITALS: BP 135/84; PULSE 83; RESP 16; TEMP 36.4; O2SAT 97
[2021-10-22] MEDS: amLODIPine Besylate 5 MG TABLET PO (09:36)
[2021-10-22] MEDS: Thiamine HCL 100 MG TABLET 50 MG PO (09:37)
[2021-10-22] MEDS: allopurinoL 100 MG TABLET PO (09:37)
[2021-10-22] MEDS: Apixaban 2.5 MG TABLET PO ×2 (09:37→21:50)
[2021-10-22] MEDS: 0.9 % Sodium Chloride Flush 3 ML SYRINGE IVFLUSH ×3 (09:41→21:51)
[2021-10-22 11:49] VITALS: BP 90/58; PULSE 71; RESP 16; TEMP 36.3; O2SAT 97
--- NOTE | 2021-10-22 12:43 | W.MHC.F2F ---
Service Date Service Date: 10/22/21 Encounter Date of encounter: 10/22/21 Reasons for Services Signs and symptoms assessed: dementia/behavioral disturbance atrial fibrillation/rate control Reason for detention: CV/CP assess and/or care, neurological assessment, medication management, medication treatment and teach disease management Reason for physical therapy: home safety and mobility, therapeutic exercises, gait/transfer training, assess need for DME, ADL training and energy conservation Reason for occupational therapy: home safety and mobility, therapeutic exercises, assess need for DME, ADL training and energy conservation MD Overseeing Care: Karolina Pabon Homebound: Leaving the home is medically contraindicated at this time without the asist of a device and/or another person due th the listed conditions above and below. Reason homebound: unsteady gait / fall risk, cognitively impaired / unsafe and weakness related to hospital stay Certification: Based on the above findings, I certify that this patient is confined to the home and needs intermittent detention care, physical therapy and/or speech therapy, or continues to need occupational therapy. The patient is under my care, and I have initiated the establishment of the plan of care. The patient will be followed by a physician who will periodically review the plan of care.
--- NOTE | 2021-10-22 12:51 | P.DS_ITS ---
DS: Providers Provider Date of Service: 10/22/21 Date of admission: 10/17/21 20:29 Date of discharge: 10/22/21 Primary care physician: Karolina Pabon MD Consults: 10/18/21 10:51 Consult to Care Team Routine Comment: Reason for consultation: brought in on section 12; medically clear 10/18/21 12:15 Consult to Psychiatry Routine Consulting Provider: Psych Covering Reason for consultation: dementia with behavioral disturbance; meds for behaviors? Has provider been notified: No 10/19/21 12:52 Consult to Cardiology Routine Consulting Provider: Duane Campos Reason for consultation: afib; HR tachy, anamaria; 3 second pause Has provider been notified: No DS: Diagnosis Discharge Diagnosis (1) Atrial fibrillation with RVR: Status: Acute (2) Dementia with behavioral disturbance: Status: Acute (3) Acidosis, lactic: Status: Acute (4) Acute renal failure superimposed on stage 4 chronic kidney disease: Status: Acute DS: Summary Hospital Course Hospital Course: from admission H+P by hospitalist Monika Lopez MD, 10/17/21: Patient is completely encephalopathic, I am unable to get much history from her, she is not directable, trying to get out of bed, pull her IV lines, pushing ED staff, not really compliant with care.? Therefore history is obtained from EMR as well as ED staff. Patient was sent in from detention with complaints of noncompliance with care, and increased confusion.? Patient refusing to take medications for her recent diagnosis UTI, also found to be tachycardic. I am unable to get much more history, no review of systems available given patient's mental status. On arrival to the ED patient was found to be in AFib with RVR, blood pressure stable Labs are found to be significant for for lactic acidosis of 2.7, otherwise unremarkable, UA is negative at this time. Of note patient was seen in the hospital on the , treated for UTI with p.o. a cefuroxime and sent to detention as her was unable to take care of her at home Chest x-ray was negative Given patient's inability to take p.o. antibiotics for her recent infection UTI and not completing her antibiotics, patient will need admission for IV antibiotics This 71yo with dementia was sent in from a SNF, where she was staying for re spite care.? She was sent in for nonadherence with care and behavioral disturbance and found to have AF/RVR due to medication refusal. Hospital course by problem: # persistent AF with RVR - Initially treated with diltaizem drip; transitioned to metoprolol 50 mg PO q8h with appropriate rate control. Apixaban for anticoagulation continued. # dementia with behavioral disturbance - Initial concern over encephalopathy, although patient has a history of dementia with behavioral disturbance and was brought in on section 12 due to refusing care and medication. No evidence of active infection; brain CT with no acute changes. Patient's reports that the patient at baseline is oriented to self only and has started refusing medications recently, but typically can answer simple questions and ambulate independently. She was started on prn quetiapine for behavioral agitation and at this time her behavioral is appropriate. # UTI, not - Patient did not complete her antibiotics for previously diagnosed UTI; however urine culture from October 11 suggestive of urogenital contamination. Urinalysis on this admission not concerning for acute infection, so antibiotics were discontinued. # Bacteremia, not - 1/2 BCx from 10/17 positive for GPCs- Staphylococcus- unable to speciate but appears to be contaminant. # Elevated lactic acid - Likely related to dehydration; no evidence of infection at this time; resolved. # ANJALI on CKD4 - Resolved with IV fluid hydration. She was discharged home in the care of her with VNA services. Time Spent with Patient Time attestation: Total time spent providing and/or coordinating discharge services: Discharge coordination time: Greater than 30 minutes Quality: Safe Use of Opioids Does Pt have an Active Cancer Diagnosis on the Problem List?: No Quality: Stroke Does the patient have a stroke diagnosis?: No Physical Exam Vital Signs: Vital Signs: Vital signs Temperature 97.5 F 10/25/21 11:00 Pulse Rate 90 10/25/21 11:00 Respiratory Rate 18 10/25/21 11:00 Blood Pressure 127/68 10/25/21 11:00 Pulse Oximetry 99 10/25/21 11:00 Gen: in no acute distress HEENT: sclera anicteric, moist mucus membranes Neck: supple Lungs: clear to auscultation bilaterally Heart: irregular, no murmurs Abd: soft, non-tender, non-distended Ext: no edema Skin: warm/well-perfused Neuro: alert and oriented to self only Psych: imparied insihgt DS: Data Data Completed and Pending Completed studies during hospitalization [Text1]: Laboratory Results WBC 5.8 X10*3/uL (4.8-10.8) 10/18/21 06:16 RBC 4.02 X10*6/uL (4.20-5.50) L 10/18/21 06:16 Hgb 12.3 g/dl (12.0-16.0) 10/18/21 06:16 Hct 37.8 % (37.0-47.0) 10/18/21 06:16 MCV 94.0 fL (80.0-98.0) 10/18/21 06:16 MCH 30.6 pg (27.0-33.0) 10/18/21 06:16 MCHC 32.5 g/dl (31.0-35.0) 10/18/21 06:16 RDW 14.8 % (11.0-16.0) 10/18/21 06:16 Plt Count 130 X10*3/uL (160-400) L 10/18/21 06:16 MPV 12.4 fL (9.4-12.3) H 10/18/21 06:16 Immature Gran % (Auto) 0.3 % (0.0-0.4) 10/18/21 06:16 Neut % (Auto) 52.1 % (45-73) 10/18/21 06:16 Lymph % (Auto) 27.6 % (20-40) 10/18/21 06:16 [place] % (Auto) 10.1 % (2-11) 10/18/21 06:16 Eos % (Auto) 9.0 % (0-4) H 10/18/21 06:16 Baso % (Auto) 0.9 % (0-2) 10/18/21 06:16 Lymph # (Auto) 1.6 X10*3/uL (1.2-4.9) 10/18/21 06:16 [place] # (Auto) 0.6 X10*3/uL (0.1-1.2) 10/18/21 06:16 Eos # (Auto) 0.5 X10*3/uL (0.0-0.4) H 10/18/21 06:16 Baso # (Auto) 0.1 X10*3/uL (0.0-0.2) 10/18/21 06:16 Abs Immat Gran (auto) 0.02 X10*3/uL (0.00-0.03) 10/18/21 06:16 Absolute Neuts (auto) 3.0 x10*3/uL (2.0-8.3) 10/18/21 06:16 Absolute Nucleated RBC 0.000 X10*3/uL (0.0-0.012) 10/18/21 06:16 Nucleated RBC % (auto) 0.0 /100WBC (0.0-0.2) 10/18/21 06:16 Sodium 145 mmol/L (135-145) 10/18/21 06:16 Potassium 3.4 mmol/L (3.3-5.1) 10/18/21 06:16 Chloride 111 mmol/L (96-108) H 10/18/21 06:16 Carbon Dioxide 23 mmol/L (22-29) 10/18/21 06:16 Anion Gap 14 (12-20) 10/18/21 06:16 BUN 14 mg/dL (9-16) 10/18/21 06:16 Creatinine 1.24 mg/dL (0.5-1.4) 10/18/21 06:16 Estim Creat Clear Calc 24.8 10/18/21 06:16 Estimated GFR 42 10/18/21 06:16 Random Glucose 90 mg/dL (60-115) 10/18/21 06:16 Lactic Acid 2.7 mmol/L (0.5-2.0) H* 10/17/21 14:23 Lactic Acid F/U @ 2Hr 2.4 mmol/L (0.5-2.0) H* 10/17/21 17:13 Lactic Acid F/U @ 4Hr 1.7 mmol/L (0.5-2.0) 10/17/21 19:53 Calcium 8.5 mg/dL (8.4-10.2) D 10/18/21 06:16 Total Bilirubin 1.5 mg/dL (0.0-1.0) H 10/17/21 14:23 Direct Bilirubin 0.5 mg/dL (0.0-0.5) 10/17/21 14:23 AST 38 U/L (5-31) H 10/17/21 14:23 ALT 19 U/L (0-31) 10/17/21 14:23 Alkaline Phosphatase 82 U/L (39-117) 10/17/21 14:23 Total Protein 7.3 g/dL (6.5-8.0) 10/17/21 14:23 Albumin 4.1 g/dL (3.5-5.0) 10/17/21 14:23 Lipase 102 U/L (8-78) H 10/17/21 14:23 TSH 1.15 uIU/mL (0.32-4.0) 10/18/21 06:16 Urine Color YELLOW 10/17/21 17:36 Urine Appearance HAZY 10/17/21 17:36 Urine pH 6.5 (5.0-8.0) 10/17/21 17:36 Ur Specific [place] 1.015 (1.005-1.025) 10/17/21 17:36 Urine Protein TRACE MG/DL (NEG-TRACE) 10/17/21 17:36 Urine Glucose (UA) NEG MG/DL (NEG) 10/17/21 17:36 Urine Ketones NEG MG/DL (NEG) 10/17/21 17:36 Urine Blood TRACE (NEG) 10/17/21 17:36 Urine Nitrite NEG (NEG) 10/17/21 17:36 Ur Leukocyte Esterase NEG (NEG) 10/17/21 17:36 Urine RBC 0-2 /HPF (0) 10/17/21 17:36 Urine WBC 0-2 /HPF (0-4) 10/17/21 17:36 Ur Squamous Epith Cells 3+ /LPF 10/17/21 17:36 Urine Bacteria TRACE /LPF 10/17/21 17:36 Urine Mucus TRACE /LPF 10/17/21 17:36 COVID-19 (PHYLLIS) Negative (Negative) 10/17/21 14:15 COVID-19 Clin Com See Note 10/17/21 14:15 Impressions Chest X-Ray 10/17/21 15:02 IMPRESSION: No acute intrathoracic disease. 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 Shoulder X-Ray 10/17/21 20:50 IMPRESSION: No acute osseous findings at the right shoulder. Head CT 10/18/21 15:46 IMPRESSION: No acute intracranial pathology. 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 Discharge Plan Discharge Patient Disposition: Home Health Service Discharge Diagnosis: dementia, atrial fibrillation Referrals: roderick [Other] - 1 Week Karolina Schafer MD [Primary Care Provider] - 1 Week Discharge Medications: New quetiapine 25 mg Tablet 12.5 mg PO Q8H PRN (Reason: Agitation) Qty: 30 0RF metoprolol tartrate 50 mg Tablet 50 mg PO Q8H Qty: 90 0RF Protocol: Hold for SBP/HR < HOLD for SBP < : 90 HOLD for HR < : 60 Continued amlodipine 5 mg tablet 5 mg PO DAILY 90 Days Qty: 90 3RF thiamine HCl (vitamin B1) 100 mg tablet 50 mg PO DAILY 90 Days Qty: 45 1RF famotidine 20 mg tablet 20 mg PO BEDTIME 0RF rosuvastatin 10 mg tablet 10 mg PO BEDTIME 0RF magnesium hydroxide 400 mg/5 mL Suspension 30 ml PO DAILY PRN (Reason: Constipation) 0RF bisacodyl 10 mg Suppository 10 mg [place] DAILY PRN (Reason: Constipation) 0RF allopurinol 100 mg tablet 100 mg PO DAILY 0RF Eliquis 2.5 mg tablet 2.5 mg PO BID 90 Days Qty: 180 4RF Discontinued donepezil 5 mg tablet 5 mg PO BEDTIME Qty: 90 2RF cefuroxime axetil 250 mg tablet 250 mg PO BID 0RF metoprolol tartrate 50 mg tablet 75 mg PO BID 90 Days Qty: 270 3RF Discharge Orders: Discharge Order (Routine); Ordered 10/25/21 Ordered By: Shree Smart Diet: advance to usual diet Activity on Discharge: As tolerated Stand Alone Forms: Patient Portal Discharge page Care Plan Goals: control of atrial fibrillation dementia care Health Concerns: dementia, atrial fibrillation Plan of Treatment: take metoprolol 50 mg every 8 hours for control of heart rate; continue Eliquis stop donepezil; use quetiapine 12.5 mg every 8 hours as needed for agitation Assessment: See Discharge Summary Patient Instructions: A-fib (Atrial Fibrillation) (DC), Dementia (ED)
--- NOTE | 2021-10-22 12:55 | P.PNIM_ITS ---
Subjective Subjective Date of Service: 10/22/21 Interval History: HR contrlled 1/2 BCx positive for GPCs.... ID pending per Micro Review of Systems Review of Systems: Yes Unobtainable due to mental status Physical Exam Vital Signs: Vital Signs: Last Vital Signs Temp 97.3 F 10/22/21 11:49 Pulse 71 10/22/21 11:49 Resp 16 10/22/21 11:49 BP 90/58 L 10/22/21 11:49 Pulse Ox 97 10/22/21 11:49 BMI result Body Mass Index 17.4 Gen: in no acute distress HEENT: sclera anicteric, moist mucus membranes Neck: supple Lungs: clear to auscultation bilaterally Heart: irregular, no murmurs Abd: soft, non-tender, non-distended Ext: no edema Skin: warm/well-perfused Neuro: alert and oriented to self only Psych: imparied insihgt Objective Data Active Medications Acetaminophen (Acetaminophen 325 Mg Tablet) 650 mg PO Q6H PRN PRN Reason: Pain, Mild (Pain Scale 1-3) Last Admin: 10/22/21 04:28 Dose: 650 mg Documented by: ASHER Acetaminophen (Acetaminophen Supp 650 Mg Supp.Rect) 650 mg [place] Q6H PRN PRN Reason: Pain, Mild (Pain Scale 1-3) Allopurinol (Allopurinol 100 Mg Tablet) 100 mg PO DAILY [facility] Last Admin: 10/22/21 09:37 Dose: 100 mg Documented by: CARLEEN Amlodipine Besylate (Amlodipine Besylate 5 Mg Tablet) 5 mg PO DAILY [facility]; Protocol Last Admin: 10/22/21 09:36 Dose: 5 mg Documented by: CARLEEN Apixaban (Apixaban 2.5 Mg Tablet) 2.5 mg PO BID [facility] Last Admin: 10/22/21 09:37 Dose: 2.5 mg Documented by: CARLEEN Atorvastatin Calcium (Atorvastatin Calcium 40 Mg Tablet) 40 mg PO BEDTIME [facility] Last Admin: 10/21/21 19:58 Dose: 40 mg Documented by: JENNIFER Docusate Sodium (Docusate Sodium 100 Mg Capsule) 100 mg PO DAILY PRN PRN Reason: Constipation Donepezil HCl (Donepezil Hcl 5 Mg Tablet) 5 mg PO BEDTIME [facility] Last Admin: 10/21/21 19:58 Dose: 5 mg Documented by: JENNIFER Famotidine (Famotidine 20 Mg Tablet) 20 mg PO BEDTIME [facility] Last Admin: 10/21/21 19:58 Dose: 20 mg Documented by: JENNIFER Magnesium Hydroxide (Milk Of Magnesia 30 Ml Oral.Susp) 30 ml PO DAILY PRN PRN Reason: Constipation Metoprolol Tartrate (Metoprolol Tartrate 50 Mg Tablet) 50 mg PO Q8H [facility]; Protocol Last Admin: 10/22/21 09:36 Dose: 50 mg Documented by: ISMAEL-MCLEP Ondansetron HCl (Ondansetron Hcl 4 Mg/2 Ml Vial) 4 mg IVPUSH Q8H PRN PRN Reason: Nausea and Vomiting Pharmacy Consult (Consult Rx Perform Med Rec) 1 each MISCELLANE ONCE PRN PRN Reason: Consult order Sodium Chloride (0.9 % Sodium Chloride Flush 3 Ml Syringe) 3 ml IVFLUSH QSHIFT [facility] Last Admin: 10/22/21 09:41 Dose: 3 ml Documented by: ISMAEL-MCLPROMISE Thiamine HCl (Thiamine Hcl 100 Mg Tablet) 50 mg PO DAILY [facility] Last Admin: 10/22/21 09:37 Dose: 50 mg Documented by: ISMAEL-EDUARDOEP Labs CBC & Chem 7: 10/18/21 06:16 10/18/21 06:16 Microbiology Microbiology Results: Microbiology 10/17/21 14:23 Blood Culture - Preliminary Blood - Venous Prelim: GPC Gram Stain only Assessment and Plan (1) Atrial fibrillation with RVR: Status: Acute (2) Dementia: Status: Acute Plan hospital d#6 71yo F with dementia sent in from SNF where she was for STR. Sent in for nonadherence with care and found to have AF/RVR # persistent AF with RVR - resolved, off diltiazem gtt - Cardiology consulted; metoprolol q8h; HR now appropriate - pt was intermittently refusing medications but now is adherent - apixaban for AC # dementia with behavioral disturbance - initial concern over encephalopathy, although patient has a history of dementia with behavioral disturbance and was brought in on section 12 due to refusing care and medication; pt's reports patient at baseline is orie nted to self only and has started refusing medications recently, but typically can answer simple questions and ambulate independently; she seems at her baseline at this time - no evidence of active infection, brain CT with no acute changes - seen by psych; no need for med adjustment - continue donepezil # UTI - patient did not complete her antibiotics for previously diagnosed UTI; however urine culture from October 11 suggestive of urogenital contamination - urinalysis on this admission not concerning for acute infection - will discontinue antibiotics # possible bacteremia - 1/2 BCx from 10/17 positive for GPCs- ID pending per Micro- unable to determine yet if likely contaminant or not # elevated lactic acid - possibly related to dehydration; no evidence of infection at this time - resolved # HTN - BP controlled; continue amlodipine + metoprolol # ANJALI on CKD4 - resolved with IV fluid hydration # GERD - continue PPI # HLD - continue statin # VTE ppx - apixaban # dispo - plan home with VNA/ care by In my clinical judgment, the patient requires continued hospitalization for the following reasons: possible bacteremia Quality Stroke Does the patient have a stroke diagnosis?: No VTE Prior VTE?: No VTE Risk Level:: Medical - moderate - high VTE Device Contraindication: Treatment Not Indicated VTE Drug Contraindication: N/A - Med Ordered
[2021-10-22 16:00] VITALS: BP 110/67; PULSE 67; RESP 18; TEMP 36.7; O2SAT 97
[2021-10-22 19:34] VITALS: BP 122/79; PULSE 58; RESP 17; TEMP 36.9; O2SAT 96
[2021-10-22] MEDS: Atorvastatin Calcium 40 MG TABLET PO (21:50)
[2021-10-22] MEDS: Famotidine 20 MG TABLET PO (21:50)
[2021-10-22] MEDS: Donepezil HCl 5 MG TABLET PO (21:50)
[2021-10-22 23:17] VITALS: BP 162/79; PULSE 113; RESP 20; O2SAT 98
[2021-10-23] MEDS: Metoprolol Tartrate 50 MG TABLET PO ×3 (01:12→17:27)
[2021-10-23 01:13] VITALS: BP 150/83; PULSE 86
[2021-10-23 03:59] VITALS: BP 150/88; PULSE 60; RESP 18; TEMP 36.4; O2SAT 96
[2021-10-23 07:53] VITALS: BP 130/82; PULSE 92; RESP 19; TEMP 36.2; O2SAT 93
[2021-10-23] MEDS: 0.9 % Sodium Chloride Flush 3 ML SYRINGE IVFLUSH ×3 (09:59→21:15)
[2021-10-23] MEDS: allopurinoL 100 MG TABLET PO (10:00)
[2021-10-23] MEDS: Apixaban 2.5 MG TABLET PO ×2 (10:00→21:15)
[2021-10-23] MEDS: amLODIPine Besylate 5 MG TABLET PO (10:00)
[2021-10-23] MEDS: Thiamine HCL 100 MG TABLET 50 MG PO (10:00)
[2021-10-23 11:32] VITALS: BP 106/58; PULSE 85; RESP 17; TEMP 36.8; O2SAT 95
--- NOTE | 2021-10-23 11:59 | MHC.CLN ---
F/U PO INTAKE 75-100% (10/22-10/23) DIET RX: CHOPPED-APPROPRIATE PT RECEIVING ENSURE BID PROVIDES 700KCALS, 40G PROTEIN CONTINUE TO MONITOR PO INTAKE AND SUPPLEMENT ACCEPTANCE CLOSELY
--- NOTE | 2021-10-23 13:07 | HO.PM.IMPN ---
Subjective Subjective Date of Service: 10/23/21 Interval History: Behavior well-controlled at bedside. 1/2 BCx positive, catalase positive, coagulase pending Review of Systems Review of Systems: Yes Unobtainable due to mental status Physical Exam Vital Signs: Vital Signs: Last Vital Signs Temp 98.2 F 10/23/21 11:32 Pulse 85 10/23/21 11:32 Resp 17 10/23/21 11:32 BP 106/58 L 10/23/21 11:32 Pulse Ox 95 10/23/21 11:32 BMI result Body Mass Index 17.4 Gen: in no acute distress HEENT: sclera anicteric, moist mucus membranes Neck: supple Lungs: clear to auscultation bilaterally Heart: irregular, no murmurs Abd: soft, non-tender, non-distended Ext: no edema Skin: warm/well-perfused Neuro: alert and oriented to self only Psych: imparied insihgt Objective Data Active Medications Acetaminophen (Acetaminophen 325 Mg Tablet) 650 mg PO Q6H PRN PRN Reason: Pain, Mild (Pain Scale 1-3) Last Admin: 10/22/21 04:28 Dose: 650 mg Documented by: ASHER Acetaminophen (Acetaminophen Supp 650 Mg Supp.Rect) 650 mg RI Q6H PRN PRN Reason: Pain, Mild (Pain Scale 1-3) Allopurinol (Allopurinol 100 Mg Tablet) 100 mg PO DAILY [facility] Last Admin: 10/23/21 10:00 Dose: 100 mg Documented by: GREY Amlodipine Besylate (Amlodipine Besylate 5 Mg Tablet) 5 mg PO DAILY [facility]; Protocol Last Admin: 10/23/21 10:00 Dose: 5 mg Documented by: GREY Apixaban (Apixaban 2.5 Mg Tablet) 2.5 mg PO BID [facility] Last Admin: 10/23/21 10:00 Dose: 2.5 mg Documented by: GREY Atorvastatin Calcium (Atorvastatin Calcium 40 Mg Tablet) 40 mg PO BEDTIME [facility] Last Admin: 10/22/21 21:50 Dose: 40 mg Documented by: AXEL Docusate Sodium (Docusate Sodium 100 Mg Capsule) 100 mg PO DAILY PRN PRN Reason: Constipation Donepezil HCl (Donepezil Hcl 5 Mg Tablet) 5 mg PO BEDTIME [facility] Last Admin: 10/22/21 21:50 Dose: 5 mg Documented by: AXEL Famotidine (Famotidine 20 Mg Tablet) 20 mg PO BEDTIME [facility] Last Admin: 10/22/21 21:50 Dose: 20 mg Documented by: AXEL Magnesium Hydroxide (Milk Of Magnesia 30 Ml Oral.Susp) 30 ml PO DAILY PRN PRN Reason: Constipation Metoprolol Tartrate (Metoprolol Tartrate 50 Mg Tablet) 50 mg PO Q8H [facility]; Protocol Last Admin: 10/23/21 10:00 Dose: 50 mg Documented by: GREY Ondansetron HCl (Ondansetron Hcl 4 Mg/2 Ml Vial) 4 mg IVPUSH Q8H PRN PRN Reason: Nausea and Vomiting Pharmacy Consult (Consult Rx Perform Med Rec) 1 each MISCELLANE ONCE PRN PRN Reason: Consult order Sodium Chloride (0.9 % Sodium Chloride Flush 3 Ml Syringe) 3 ml IVFLUSH QSHIFT [facility] Last Admin: 10/23/21 09:59 Dose: 3 ml Documented by: GREY Thiamine HCl (Thiamine Hcl 100 Mg Tablet) 50 mg PO DAILY [facility] Last Admin: 10/23/21 10:00 Dose: 50 mg Documented by: GREY Labs CBC & Chem 7: 10/18/21 06:16 10/18/21 06:16 Microbiology Microbiology Results: Microbiology 10/17/21 14:23 Blood Culture - Final Blood - Venous No growth after 5 days. Assessment and Plan (1) Atrial fibrillation with RVR: Status: Acute (2) Dementia: Status: Acute Plan hospital d#7 71yo F with dementia sent in from SNF where she was for STR. Sent in for nonadherence with care and found to have AF/RVR # persistent AF with RVR - resolved, off diltiazem gtt - Cardiology consulted; metoprolol q8h; HR now appropriate - pt was intermittently refusing medications but now is adherent - apixaban for AC # dementia with behavioral disturbance - initial concern over encephalopathy, although patient has a history of dementia with behavioral disturbance and was brought in on section 12 due to refusing care and medication; pt's reports patient at baseline is oriented to self only and has started refusing medications recently, but typically can answer simple questions and ambulate independently; she seems at her baseline at this time - no evidence of active infection, brain CT with no acute changes - seen by psych; no need for med adjustment - continue donepezil # UTI - patient did not complete her antibiotics for previously diagnosed UTI; however urine culture from October 11 suggestive of urogenital contamination - urinalysis on this admission not concerning for acute infection - will discontinue antibiotics # possible bacteremia - 1/2 BCx from 10/17 positive for GPCs- Staphylococcus- speciation should be completed tomorrow to determine if likely contaminant or not # elevated lactic acid - possibly related to dehydration; no evidence of infection at this time - resolved # HTN - BP controlled; continue amlodipine + metoprolol # ANJALI on CKD4 - resolved with IV fluid hydration # GERD - continue PPI # HLD - continue statin # VTE ppx - apixaban # dispo - plan home with VNA/ care by In my clinical judgment, the patient requires continued hospitalization for the following reasons: possible bacteremia Quality Stroke Does the patient have a stroke diagnosis?: No VTE Prior VTE?: No VTE Risk Level:: Medical - moderate - high VTE Device Contraindication: Treatment Not Indicated VTE Drug Contraindication: N/A - Med Ordered
[2021-10-23 15:35] VITALS: BP 105/66; PULSE 97; RESP 18; TEMP 36.7; O2SAT 98
[2021-10-23 19:29] VITALS: BP 108/67; PULSE 86; RESP 17; TEMP 36.7; O2SAT 98
[2021-10-23] MEDS: Famotidine 20 MG TABLET PO (21:15)
[2021-10-23] MEDS: Atorvastatin Calcium 40 MG TABLET PO (21:15)
[2021-10-23] MEDS: Donepezil HCl 5 MG TABLET PO (21:15)
[2021-10-24] VITALS: BP 187/84; PULSE 92; RESP 20; TEMP 36.3; O2SAT 97
[2021-10-24] MEDS: Metoprolol Tartrate 50 MG TABLET PO ×2 (00:57→18:06)
[2021-10-24 03:53] VITALS: BP 130/81; PULSE 74; RESP 17; TEMP 36.4; O2SAT 98
[2021-10-24 09:39] VITALS: BP 94/52; PULSE 87; RESP 20; TEMP 36.7; O2SAT 96
--- NOTE | 2021-10-24 11:41 | P.PNIM_ITS ---
Subjective Subjective Date of Service: 10/24/21 Interval History: Agitated + combative this AM Review of Systems Review of Systems: Yes Unobtainable due to mental status Physical Exam Vital Signs: Vital Signs: Last Vital Signs Temp 98.0 F 10/24/21 09:39 Pulse 87 10/24/21 09:39 Resp 20 10/24/21 09:39 BP 94/52 L 10/24/21 09:39 Pulse Ox 96 10/24/21 09:39 BMI result Body Mass Index 17.4 Gen: in no acute distress HEENT: sclera anicteric, moist mucus membranes Neck: supple Lungs: clear to auscultation bilaterally Heart: irregular, no murmurs Abd: soft, non-tender, non-distended Ext: no edema Skin: warm/well-perfused Neuro: alert and oriented to self only Psych: imparied insight Objective Data Active Medications Acetaminophen (Acetaminophen 325 Mg Tablet) 650 mg PO Q6H PRN PRN Reason: Pain, Mild (Pain Scale 1-3) Last Admin: 10/22/21 04:28 Dose: 650 mg Documented by: ASHER Acetaminophen (Acetaminophen Supp 650 Mg Supp.Rect) [address] Q6H PRN PRN Reason: Pain, Mild (Pain Scale 1-3) Allopurinol (Allopurinol 100 Mg Tablet) 100 mg PO DAILY [facility] Last Admin: 10/23/21 10:00 Dose: 100 mg Documented by: GREY Amlodipine Besylate (Amlodipine Besylate 5 Mg Tablet) 5 mg PO DAILY [facility]; Protocol Last Admin: 10/23/21 10:00 Dose: 5 mg Documented by: GREY Apixaban (Apixaban 2.5 Mg Tablet) 2.5 mg PO BID [facility] Last Admin: 10/23/21 21:15 Dose: 2.5 mg Documented by: EMMY Atorvastatin Calcium (Atorvastatin Calcium 40 Mg Tablet) 40 mg PO BEDTIME [facility] Last Admin: 10/23/21 21:15 Dose: 40 mg Documented by: EMMY Docusate Sodium (Docusate Sodium 100 Mg Capsule) 100 mg PO DAILY PRN PRN Reason: Constipation Donepezil HCl (Donepezil Hcl 5 Mg Tablet) 5 mg PO BEDTIME [facility] Last Admin: 10/23/21 21:15 Dose: 5 mg Documented by: EMMY Famotidine (Famotidine 20 Mg Tablet) 20 mg PO BEDTIME [facility] Last Admin: 10/23/21 21:15 Dose: 20 mg Documented by: EMMY Magnesium Hydroxide (Milk Of Magnesia 30 Ml Oral.Susp) 30 ml PO DAILY PRN PRN Reason: Constipation Metoprolol Tartrate (Metoprolol Tartrate 50 Mg Tablet) 50 mg PO Q8H [facility]; Protocol Last Admin: 10/24/21 00:57 Dose: 50 mg Documented by: EMMY Ondansetron HCl (Ondansetron Hcl 4 Mg/2 Ml Vial) 4 mg IVPUSH Q8H PRN PRN Reason: Nausea and Vomiting Pharmacy Consult (Consult Rx Perform Med Rec) 1 each MISCELLANE ONCE PRN PRN Reason: Consult order Sodium Chloride (0.9 % Sodium Chloride Flush 3 Ml Syringe) 3 ml IVFLUSH QSHIFT [facility] Last Admin: 10/23/21 21:15 Dose: 3 ml Documented by: EMMY Thiamine HCl (Thiamine Hcl 100 Mg Tablet) 50 mg PO DAILY [facility] Last Admin: 10/23/21 10:00 Dose: 50 mg Documented by: GREY Labs CBC & Chem 7: 10/18/21 06:16 10/18/21 06:16 Microbiology Microbiology Results: Microbiology 10/17/21 14:23 Blood Culture - Final Blood - Venous Staphylococcus species Assessment and Plan (1) Atrial fibrillation with RVR: Status: Acute (2) Dementia: Status: Acute Plan hospital d#8 71yo F with dementia sent in from SNF where she was for STR. Sent in for nonadherence with care and found to have AF/RVR # persistent AF with RVR - resolved, off diltiazem gtt - Cardiology consulted; metoprolol q8h; HR now appropriate - pt was intermittently refusing medications but now is adherent - apixaban for AC # dementia with behavioral disturbance - initial concern over encephalopathy, although patient has a history of dementia with behavioral disturbance and was brought in on section 12 due to refusing care and medication; pt's reports patient at baseline is oriented to self only and has started refusing medications recently, but typically can answer simple questions and ambulate independently; she seems at her baseline at this time - no evidence of active infection, brain CT with no acute changes - seen by psych; no need for med adjustment - d/c donepezil, will add prn quetiapine # UTI - patient did not complete her antibiotics for previously diagnosed UTI; however urine culture from October 11 suggestive of urogenital contamination - urinalysis on this admission not concerning for acute infection - will discontinue antibiotics # possible bacteremia - / BCx from 10/17 positive for GPCs- Staphylococcus- unable to speciate but appears to be contaminant # elevated lactic acid - possibly related to dehydration; no evidence of infection at this time - resolved # HTN - BP controlled; continue amlodipine + metoprolol # ANJALI on CKD4 - resolved with IV fluid hydration # GERD - continue PPI # HLD - continue statin # VTE ppx - apixaban # dispo - unable to manage her behavior at home, looking for long-term dementia care options ([facility] memory care?) In my clinical judgment, the patient requires continued hospitalization for the following reasons: agitation, safe discharge Quality Stroke Does the patient have a stroke diagnosis?: No VTE Prior VTE?: No VTE Risk Level:: Medical - moderate - high VTE Device Contraindication: Treatment Not Indicated VTE Drug Contraindication: N/A - Med Ordered
[2021-10-24 12:00] VITALS: BP 105/60; PULSE 89; RESP 20; TEMP 36.6; O2SAT 98
[2021-10-24] MEDS: QUEtiapine Fumarate 25 MG TABLET 12.5 MG PO (14:25)
[2021-10-24] MEDS: 0.9 % Sodium Chloride Flush 3 ML SYRINGE IVFLUSH ×2 (14:27→21:00)
[2021-10-24 18:07] VITALS: BP 132/87; PULSE 87
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
[2021-10-24 19:23] VITALS: BP 130/63; PULSE 99; RESP 18; TEMP 36.7; O2SAT 98
[2021-10-24] MEDS: Atorvastatin Calcium 40 MG TABLET PO (21:00)
[2021-10-24] MEDS: Famotidine 20 MG TABLET PO (21:00)
[2021-10-24] MEDS: Apixaban 2.5 MG TABLET PO (21:00)
[2021-10-25] VITALS: BP 155/74; PULSE 95; RESP 16; TEMP 36.4; O2SAT 94
[2021-10-25] MEDS: Metoprolol Tartrate 50 MG TABLET PO ×2 (00:29→09:12)
[2021-10-25] MEDS: QUEtiapine Fumarate 25 MG TABLET 12.5 MG PO (00:29)
[2021-10-25 07:10] VITALS: BP 121/72; PULSE 77; RESP 18; TEMP 36.3; O2SAT 98
[2021-10-25] MEDS: Apixaban 2.5 MG TABLET PO (09:12)
[2021-10-25] MEDS: 0.9 % Sodium Chloride Flush 3 ML SYRINGE IVFLUSH (09:12)
[2021-10-25] MEDS: allopurinoL 100 MG TABLET PO (09:13)
[2021-10-25] MEDS: Thiamine HCL 100 MG TABLET 50 MG PO (09:13)
[2021-10-25] MEDS: amLODIPine Besylate 5 MG TABLET PO (09:13)
--- NOTE | 2021-10-25 10:23 | MHC.CM.PN ---
pt to be dcd today family to transport roderick notified of dc
[2021-10-25 11:00] VITALS: BP 127/68; PULSE 90; RESP 18; TEMP 36.4; O2SAT 99
--- NOTE | 2021-10-25 11:22 | MHC.CM.PN ---
pt dcd today family to transport pt home roderick notified of dc
--- NOTE | 2021-10-25 12:29 | MHC.CLN ---
F/U PO INTAKE VARIABLE DIET RX: CHOPPED-APPROPRIATE PT RECEIVING ENSURE BID PROVIDES 700KCALS, 40G PROTEIN CONTINUE TO MONITOR PO INTAKE AND SUPPLEMENT ACCEPTANCE CLOSELY
--- NOTE | 2021-10-26 11:36 | MHC.CM.PN ---
Received voicemail from Dr Nieves stating his was discharged 10/25 and was supposed to have a PRN prescription for Seroquel that was never sent to the pharmacy. Dr Smart has been made aware via [employer]. Continue to monitor for d/c needs.
--- NOTE | 2021-10-28 09:22 | MHC.CM.PN ---
RODGER RECEIVED A CALL FROM PTS ON 10/26/21 STATING PTS SEROQUEL PRESCRIPTION WAS NOT SENT TO [facility]. CM CALLED [facility]. THEY STATED THEY HAD RECEIVED THE RX BUT THE INSURANCE COMPANY WOULD NOT COVER IT BECAUSE IT WAS TOO LOW OF A DOSE. REWROTE THE RX FOR A HIGHER DOSE AND SENT IT TO THE PHARMACY CM RECEIVED A CALL TODAY FROM THE HOSPITALISTS ADMIN INDICATING SHE HAD RECEIVED ANOTHER CALL ABOUT THIS RX. SHE STATED SHE SPOKE TO [facility] AND THEY INDICATED THE INSURANCE WOULD NOT COVER THIS MEDICATION BECAUSE THE PT HAS A DEMENTIA DIAGNOSIS. SHE ASKED THAT CM TRY TO FIND OUT WHAT WOULD BE COVERED SO THAT MD COULD SEND A NEW RX. CM CALLED [employer] ([phone]) (CALL REFERENCE NUMBER [id number]) HOWEVER THEY INDICATED THEY ONLY COVER PTS COPAYS FOR MEDS, HER MEDICARE PART D WOULD BE THE PRIMARY PAYER. CM CALLED THE PROVIDER NUMBER FOR MEDICARE ([phone]), HOWEVER THEY INDICATED A DIFFERENT NUMBER WOULD BE CALLED FOR MEDICATION COVERAGE QUESTIONS. CM WILL CALL [place] [employer] NUMBER ([phone]) HOWEVER THIS NUMBER WAS NOT USEFUL. CM DIRECTOR WILL DISCUSS ISSUE WITH .
== END 2021-10-25 15:02 | disposition home health service (06) | DRG 683 ==
LOC: HO.ED 16:46 → HO.EDOVER 20:36 → HO.IMC 21:10
PROVIDERS: Admitting Provider Internal Medicine; Emergency Provider Student in an Organized Health Care Education/Training Program; PCP Internal Medicine; Visit Provider Family Medicine
DX: N17.9 Acute kidney failure, unspecified (principal); E87.2 Acidosis; F03.91 Unspecified dementia, unspecified severity, with behavioral disturbance; I48.19 Other persistent atrial fibrillation; Z68.1 Body mass index [BMI] 19.9 or less, adult; I12.9 Hypertensive chronic kidney disease with stage 1 through stage 4 chronic kidney disease, or unspecified chronic kidney disease; N18.4 Chronic kidney disease, stage 4 (severe); E86.0 Dehydration; K21.9 Gastro-esophageal reflux disease without esophagitis; Z20.822 Contact with and (suspected) exposure to COVID-19; Z91.19 Patient's noncompliance with other medical treatment and regimen; Z87.891 Personal history of nicotine dependence; Z87.440 Personal history of urinary (tract) infections; Z91.14 Patient's other noncompliance with medication regimen; Z88.6 Allergy status to analgesic agent; Z88.8 Allergy status to other drugs, medicaments and biological substances; Z79.01 Long term (current) use of anticoagulants; Z79.899 Other long term (current) drug therapy; R63.6 Underweight
CPT/HCPCS: 36415; 70450; 71046; 73030; 80048; 80076; 81001; 83605; 83690; 84443; 85025; 87040; 87205; 87635; 93005; 96361; 96365; 96367; 96375; 97162; 99285; J0696; J1642; J2060

== ENCOUNTER 2021-11-07 08:20 | Emergency (ER) | payer MEDICARE, MEDICAID, SELFPAY ==
--- NOTE | ~2021-11-07 | CT_ITS ---
EXAMINATION: CT HEAD WITHOUT CONTRAST CLINICAL INFORMATION: Fall COMPARISON: 10/18/2021 TECHNIQUE: Contiguous axial imaging was performed from the skull base to vertex without intravenous administration of contrast. This CT examination was performed using dose optimization techniques as appropriate, variously including the following: *Automated exposure control *Adjustment of mA and/or kV according to patient size (this includes techniques or standardized protocols for targeted exams where dose is matched to indication/reason for exam; i.e. extremities or head) *Use of iterative reconstruction technique DLP: 1260 mGy-cm FINDINGS: There is a soft tissue hematoma left frontal parietal region. There is no midline shift. There is no mass effect. There is no hemorrhage in the brain. The basilar cisterns appear patent. The posterior fossa risk grossly within normal limits. There is no extra-axial collection. 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 Review of the bone windows does not demonstrate evidence for fracture. CT/CT head/brain wo con IMPRESSION: Soft tissue hematoma seen on the left. No underlying hemorrhage midline shift or mass effect in the brain. Atrophy with areas of ischemia and old infarct on the right
--- NOTE | ~2021-11-07 | XR_ITS ---
EXAMINATION: XR CHEST CLINICAL INFORMATION: Medical clearance. COMPARISON: 10/17/2021 chest radiographs. TECHNIQUE: Frontal view of the chest was obtained. FINDINGS: Support devices: Right-sided central venous port with tip terminating in the superior vena cava. No significant abnormality is noted involving the heart, lungs, mediastinum, bony thorax or soft tissues. XR/XR chest 1V IMPRESSION: No acute cardiopulmonary process.
[2021-11-07 08:25] VITALS: BP 110/80; BP 149/84; PULSE 69; PULSE 99; RESP 18; TEMP 37; O2SAT 96; O2SAT 98; BMI 17.7
--- NOTE | 2021-11-07 09:07 | ED_ITS ---
HPI - General Adult General Chief complaint: Altered Mental Status Stated complaint: ALTERED MENTAL Time Seen by Provider: 11/07/21 09:01 Source: family (spouse over the phone( Tana Nieves)) and EMS Mode of arrival: EMS Limitations: physical limitation (Dimension) History of Present Illness HPI narrative: 71 years old female came in by ambulance for mostly placement. History of dementia with behavior disturbance as per EMS/ reports patient at baseline is oriented to self only, at times patient is aggressive. Patient got out of the house, found her in the street did not want to go back ho me and had argument with him who called the ambulance. A pleasant 71-year-old female who is quite in her bed with no apparent distress only oriented to her name only but unable to provide any other history. Patient had similar behavior 2 weeks ago that required hospitalization, spouse was offered placement but he declined long-term placement at the time and now is looking for placement. Related Data Home Medications Medication Instructions Recorded Confirmed famotidine 20 mg tablet 20 mg PO BEDTIME tab 03/21/21 10/17/21 allopurinol 100 mg tablet 100 mg PO DAILY 05/30/21 10/17/21 rosuvastatin 10 mg tablet 10 mg PO BEDTIME 10/11/21 10/17/21 bisacodyl 10 mg rectal suppository 10 mg SD DAILY PRN 10/17/21 10/17/21 magnesium hydroxide 400 mg/5 mL 30 ml PO DAILY PRN 10/17/21 10/17/21 oral suspension calcitriol 0.25 mcg capsule mcg PO 11/01/21 Previous Rx's Medication Instructions Recorded apixaban 2.5 mg tablet (Eliquis) 2.5 mg PO BID 90 Days #180 tab 02/21/21 amlodipine 5 mg tablet 5 mg PO DAILY 90 Days #90 tab 06/09/21 thiamine HCl (vitamin B1) 100 mg 50 mg PO DAILY 90 Days #45 tab 08/09/21 tablet metoprolol tartrate 50 mg tablet 50 mg PO Q8H #90 tab 10/25/21 risperidone 0.25 mg tablet 0.25 mg PO BID PRN #60 tab 10/28/21 quetiapine 25 mg tablet 12.5 mg PO DAILY PRN #90 tab 11/01/21 Allergies Allergy/AdvReac Type Severity Reaction Status Date / Time NSAIDS (Non-Steroidal AdvReac Severe CONTRAINDICATED Verified 11/01/21 11:21 Anti-Inflamma DUE TO [NSAIDS (NON-STEROIDAL ANEMIA ANTI-INFLAMMA] atorvastatin [From LIPITOR] AdvReac Intermediate MUSCLE PAIN Verified 11/01/21 11:21 Review of Systems Review of Systems: All other systems are reviewed and are negative Constitutional: Reports as per HPI and Reports no additional constitutional complaints Eyes: Reports as per HPI and Reports no additional eye complaints Reports system reviewed and no additional complaints, except as documented Cardiovascular: Reports as per HPI and Reports no additional cardiovascular complaints Respiratory: Reports as per HPI and Reports no additional respiratory complaints Gastrointestinal: Reports as per HPI and Reports no additional gastrointestinal complaints Genitourinary: Reports no additional female genitourinary complaints Musculoskeletal: Reports no additional musculoskeletal complaints Skin/Breast: Reports system reviewed and no additional complaints, except as docu Psychiatric: Reports no additional psychiatric complaints Endocrine: Reports no additional endocrine complaints Hematologic/Lymphatic: Reports no additional hematologic/lymphatic complaints Allergic/Immunologic: Reports no additional allergic/immunologic complaints Reports system reviewed and no additional complaints, except as documented and Reports Abnormal speech present [facility] Past Medical History Medical History Asthma CKD (chronic kidney disease) Colon cancer Dementia Essential hypertension GERD (gastroesophageal reflux disease) Hypokalemia Pure hypercholesterolemia Surgical History History of bilateral cataract extraction History of laparoscopy Family History Family History Father No problems noted. Mother No problems noted. Social History Social History Household Members: None Housing: Jail Unable to assess alcohol history related to: Unknown Alcohol intake: never Patient Tobacco Use Status: Former Tobacco user e-Cigarette/Vaping Use: Never Used Second Hand Smoke Exposure: No Advance Directives: Yes Advance Directives on File: Yes Advance Directives Date on File: 10/11/21 service: No Current occupational status: retired and disabled Cognitive needs: Yes Hearing needs: No Vision needs: Yes Physical Exam ED Vital Signs: Vital Signs - 24 hr 11/07/21 08:25 Temperature 98.6 F Pulse Rate 69 Respiratory Rate 18 Blood Pressure 149/84 H Pulse Oximetry 98 BMI result Body Mass Index 17.7 Vital signs have been reviewed as appeared to be correct. Blood pressure normal. Heart rate normal. Respiration rate normal. Temperature normal. Oxygen saturation normal. Appearance: Alert. Oriented only to her name No acute distress. Head: Normal external exam. Normocephalic. Atraumatic. No Boothe signs noted. No raccoon eyes noted Eyes: PERRLA. EOMI. Conjunctiva and sclera normal. Eyelids normal. ENT: TM's Normal. Pharynx normal. Uvula midline. Moist mucous membranes. No trismus noted. No drooling noted. No muffled voice noted. Neck: Normal inspection. Neck supple. FROM. No adenopathy. Thyroid Normal. No meningeal signs. No neck mass noted. CVS: Normal heart rate and rhythm. Heart sound normal. No murmurs noted. Pulses normal throughout. Respiratory: No respiratory distress. Painless inspiration. Breath sounds normal. No wheezes/rales/rhonchi noted. Chest nontender. No accessory muscle usage noted or decreased air movement noted. Abdomen: Soft and nontender. Bowel sounds normal in all 4 quadrants. No distention noted. No organomegaly noted. No visible injury noted. Back: No CVA tenderness. Full range of motion noted. Skin: Skin warm and dry. Normal skin color. Normal skin turgor. No rashes/lesions/lacerations noted. Extremities: No lower extremity edema. Extremities exhibit normal range of motion. Extremities nontender. Neuro: Cranial nerve exam: II-XII are grossly intact No motor deficit. No sensory deficit. Reflexes normal. Course Course Course Narrative: 71-year-old female history of dementia with fluctuating behavior disturbance came in by ambulance his family seeking long-term placement. Start with medical clearance then well search for suitable place to provide long-term care for the patient. Reevaluation(s) Reevaluation #1: Physician observation started at 9:30 am . Patient placed in physician observation for medical clearance and to see PT/case management for evaluation and the need for placement patient's vital sign were stable, patient is alert and oriented , neuro exam unchanged, unremarkable rest of physical exam. Time: 09:30 Discharge Plan Discharge Clinical Impression: Dementia Prescriptions: No Action amlodipine 5 mg tablet 5 mg PO DAILY 90 Days Qty: 90 3RF thiamine HCl (vitamin B1) 100 mg tablet 50 mg PO DAILY 90 Days Qty: 45 1RF famotidine 20 mg tablet 20 mg PO BEDTIME 0RF rosuvastatin 10 mg tablet 10 mg PO BEDTIME 0RF magnesium hydroxide 400 mg/5 mL Suspension 30 ml PO DAILY PRN (Reason: Constipation) 0RF bisacodyl 10 mg Suppository 10 mg SD DAILY PRN (Reason: Constipation) 0RF metoprolol tartrate 50 mg Tablet 50 mg PO Q8H Qty: 90 0RF Protocol: Hold for SBP/HR < HOLD for SBP < : 90 HOLD for HR < : 60 risperidone 0.25 mg tablet 0.25 mg PO BID PRN (Reason: agitation) Qty: 60 0RF allopurinol 100 mg tablet 100 mg PO DAILY 0RF calcitriol 0.25 mcg capsule PO 0RF quetiapine 25 mg tablet 12.5 mg PO DAILY PRN (Reason: psychotic ) Qty: 90 0RF Eliquis 2.5 mg tablet 2.5 mg PO BID 90 Days Qty: 180 4RF
[2021-11-07 10:04] LABS: MANUAL DIFF FLAG NO
[2021-11-07 10:06] LABS: Basophils Absolute Auto 0.1 X10*3/uL (0.0-0.2); Basophils Percent Auto 1.1 % (0-2); Eosinophils Absolute Auto 0.7 X10*3/uL (0.0-0.4); Eosinophils Percent Auto 10.9 % (0-4); Hematocrit 39.2 % (37.0-47.0); Hemoglobin 12.7 g/dl (12.0-16.0); Imm Gran Abs Auto 0.01 X10*3/uL (0.00-0.03); Imm Gran Pct Auto 0.2 % (0.0-0.4); Lymphocytes Absolute Auto 1.3 X10*3/uL (1.2-4.9); Lymphocytes Percent Auto 20.7 % (20-40); Mean Corpuscular HGB Conc 32.4 g/dl (31.0-35.0); Mean Corpuscular Hemoglobin 30.9 pg (27.0-33.0); Mean Corpuscular Volume 95.4 fL (80.0-98.0); Mean Platelet Volume 11.4 fL (9.4-12.3); Monocytes Absolute Auto 0.5 X10*3/uL (0.1-1.2); Monocytes Percent Auto 8.6 % (2-11); Neutrophils Absolute Auto 3.6 x10*3/uL (2.0-8.3); Neutrophils Percent Auto 58.5 % (45-73); Platelet Count 209 X10*3/uL (160-400); Red Blood Count 4.11 X10*6/uL (4.20-5.50); Red Cell Distribution Width 14.6 % (11.0-16.0); White Blood Count 6.2 X10*3/uL (4.8-10.8)
[2021-11-07 10:22] LABS: Alanine Aminotransferase 36 U/L (0-31); Albumin Level 3.7 g/dL (3.5-5.0); Alkaline Phosphatase 93 U/L (39-117); Anion Gap 13 (12-20); Aspartate Amino Transferase 41 U/L (5-31); Bilirubin Direct 0.3 mg/dL (0.0-0.5); Bilirubin Total 0.6 mg/dL (0.0-1.0); Blood Urea Nitrogen 14 mg/dL (9-16); Calcium 9.7 mg/dL (8.4-10.2); Carbon Dioxide 31 mmol/L (22-29); Chloride 105 mmol/L (96-108); Creatinine Clr Calc Pharmacy 12.3; Estimated Glomerular Filt Rate 18; Glucose Random 81 mg/dL (60-115); Lipase 39 U/L (8-78); Potassium 4.4 mmol/L (3.3-5.1); Sodium 145 mmol/L (135-145); Total Protein 6.6 g/dL (6.5-8.0)
[2021-11-07 10:25] LABS: Troponin-I High Sensitivity 6.3 ng/L (<3.5-17.0)
--- NOTE | 2021-11-07 10:31 | PC.NURSE ---
bloodwork drawn and xray done, cooperative,skin wpd
--- NOTE | 2021-11-07 10:55 | PC.NURSE ---
Pt ambulatory to Pod. steady on feet. answers some basic questions (how do you feel, name) but disoriented to time and place. States she feels fine and last remembers the police taking her away. Pt was cooperative with changeover.
[2021-11-07 11:19] VITALS: BP 118/56; PULSE 109; RESP 19; TEMP 36.4; O2SAT 94
--- NOTE | 2021-11-07 11:45 | PHA.MEDREC ---
Pharmacy Consult ? Medication Reconciliation Pharmacy has completed the medication reconciliation. Patient's to confirm all medications. Patient no longer taking Donepezil or Vitamind D2. Martha Espana, UdayD
[2021-11-07 12:08] LABS: Influenza A PCR NEGATIVE (Negative); Influenza B PCR NEGATIVE (Negative); Resp Syncy Virus RNA Qual PCR NEGATIVE (Negative); SARS COV2 PCR INHOUSE POSITIVE (Negative)
[2021-11-07 12:19] LABS: Appearance Urine CLEAR; Color Urine YELLOW; Glucose Urine UA NEG (NEG); Leukocyte Esterase Urine NEG (NEG); Nitrite Urine NEG (NEG); Specific Gravity - Urine 1.015 (1.005-1.025); UACC Culture Trigger NO; Urine Blood TRACE (NEG); Urine Ketones NEG (NEG); Urine Protein TRACE MG/DL (NEG-TRACE)
--- NOTE | 2021-11-07 12:21 | PC.NURSE ---
Pt give large water at arrival to ED and encouraged to drink.
[2021-11-07 13:02] LABS: Squamous Epithelial Cell Urine 2+ /LPF
[2021-11-07 13:03] LABS: Bacteria Urine 1+ /LPF
--- NOTE | 2021-11-07 14:23 | MHC.CM.ED ---
Addendum entered by Vesta Huntley 11/07/21 14:31: Dr Cabrera has been asked to order a psych consult for medication recommendations. Original Note: Received case management consult from Dr Cabrera. Patient came to the ER due to AMS. Patient found to be positive for Covid. Patient and are well known to case management. Patient discharged home from [facility] on 10/26 with [facility]. PCP verified. HCP verified to be on file. Patient received 3 Pfizer vaccines. Patient will be difficult to place due to Covid status. Patient may need to go 100 miles away from her residence due to lack of Covid beds in the area. made aware he will not be able to visit once patient is placed in a facility due to being positive for Covid. also made aware that if a bed is offered up to 100 miles away and he doesn't accept it, patient will have to discharge home with resumption of [facility]. Mr Nieves verbalized understanding. Referral broadcasted within 100 miles of patient's address to all facilities that accept Covid positive patients and have a locked dementia unit. 17 referrals have been made. Continue to monitor for d/c needs.
--- NOTE | 2021-11-07 14:37 | PC.NURSE ---
, Martha Nieves, has permission to visit patient despite pt's covid + status. Permission granted by Evita Carlin. Pt has dementia, normally wanders and walks alot, has difficulty using remote communication devices and can escalate w/o family. Pt currently isolated to [facility]. Is a CASE management bedsearch. Unlabored resp, no cough, no fever. OT has suggested use of a baby doll in room and earphone for music if possible.
--- NOTE | 2021-11-07 14:54 | PC.NURSE ---
Consult with pts nurse prior to tx and pt is COVID positive. Interview completed with pts completed this date with regard to pts leisure interests. Pts reports that she attends adult day care program during the week and interests include coloring, music, and dancing. Pts nurse notified of interests and head phones with bluetooth capability available in pod, coloring pages available and dementia baby doll provided with positive outcome.
[2021-11-07] MEDS: Thiamine HCL 100 MG TABLET 50 MG PO (14:57)
[2021-11-07] MEDS: QUEtiapine Fumarate 25 MG TABLET 12.5 MG PO (14:57)
--- NOTE | 2021-11-07 14:57 | PC.NURSE ---
has left. Staff attempted an EKG but this escalated patient who began to shout and pace in room. Pt took PRN seroquel easily and is now laying down to rest.
--- NOTE | 2021-11-07 15:07 | MHC.CM.ED ---
Received voicemail in case management office from patient's . If no STR rehab bed is found locally by tomorrow, he will take patient home at 10am. Continue to monitor for d/c needs.
--- NOTE | 2021-11-07 15:54 | PC.NURSE ---
after po seroquel patient rested for a little while. pt ambulatory to bathroom with this rn then unwilling to return to room. was unable to be redirected w/o hands on, escalated. IM meds ordered. This rn called to see if he was available to return to help patient but was unable to do so. agreeable to IM meds. Pt held by [facility] for administration. No longer hitting/swatting at staff.
[2021-11-07] MEDS: LORazepam 2 MG/ML VIAL IM (16:00)
--- NOTE | 2021-11-07 16:35 | PC.NURSE ---
continues to be ambulatory within room with 1:1 sitter.
--- NOTE | 2021-11-07 16:45 | PC.NURSE ---
struggles against sleep despite warm blankets and back rubs. sitter has hands on to prevent falls.
--- NOTE | 2021-11-07 17:25 | PC.NURSE ---
1708 this rn heard pt make noise. Found patient on floor near bed with head between desk and bed. alert,. Provider called to bedside. PHUC bedolla present. pt assisted to sitting. no neuro deficits noted. PERRLA, moving all extremities. Large swelling left forehead noted. Pt to have CT of head and neck.
--- NOTE | 2021-11-07 17:50 | PC.NURSE ---
starting to settle again now in bed. has needed frequent hands on to keep pt from falling out of bed. pt remains a 1:1. awaits CT of head and neck.
[2021-11-07 18:15] VITALS: BP 143/65; PULSE 105; RESP 18; O2SAT 96
--- NOTE | 2021-11-07 19:35 | PC.NURSE ---
Pt continues to be restless despite 1:1. mattress has been on floor. aware of fall and results of CT. states that he'll come get patient tomorrow. pt has fallen from bed at home as well. pt moving all extremities.
[2021-11-08] MEDS: Famotidine 20 MG TABLET PO (01:54)
[2021-11-08] MEDS: Apixaban 2.5 MG TABLET PO (01:54)
[2021-11-08] MEDS: Metoprolol Tartrate 50 MG TABLET PO (01:55)
[2021-11-08 02:22] VITALS: BP 150/113; PULSE 113; RESP 19; O2SAT 99
--- NOTE | 2021-11-08 06:10 | PC.NURSE ---
Patient slept through the night, no distress observed, incontinence bladder x 2 and care provided suitably, patient not compliant with EKG, minimal communication due to dementia, covid positive, appetite poor, 1:1 for observation, patient is S/P fall, head CT unremarkable, medication compliant, patient is case management looking for halfway placement, will continue to monitor.
--- NOTE | 2021-11-08 07:05 | PC.NURSE ---
patient appears to remain asleep at present respirations are even and unlabored patient appears in no distress
== END 2021-11-08 10:22 | disposition home or self-care (01) ==
PROVIDERS: Emergency Provider Emergency Medicine; PCP Internal Medicine
DX: F03.90 Unspecified dementia, unspecified severity, without behavioral disturbance, psychotic disturbance, mood disturbance, and anxiety (principal); S09.90XA Unspecified injury of head, initial encounter; I12.9 Hypertensive chronic kidney disease with stage 1 through stage 4 chronic kidney disease, or unspecified chronic kidney disease; N18.9 Chronic kidney disease, unspecified; J45.909 Unspecified asthma, uncomplicated; Z79.01 Long term (current) use of anticoagulants; Z20.822 Contact with and (suspected) exposure to COVID-19; W06.XXXA Fall from bed, initial encounter; Y93.9 Activity, unspecified; Y92.003 Bedroom of unspecified non-institutional (private) residence as the place of occurrence of the external cause; Y99.9 Unspecified external cause status
CPT/HCPCS: 0241U; 36415; 70450; 71045; 80048; 80076; 81001; 81003; 83690; 84484; 85025; 96372; 99284; 99285; J2060

== ENCOUNTER 2021-11-11 01:26 | Emergency (ER) | payer MEDICARE, MEDICAID, SELFPAY ==
[2021-11-11 02:09] VITALS: BP 155/80; PULSE 95; RESP 16; TEMP 36.4; O2SAT 99; BMI 16.1
== END 2021-11-11 07:00 | disposition left against medical advice (07) ==
PROVIDERS: Emergency Provider Emergency Medicine; PCP Internal Medicine
DX: F03.90 Unspecified dementia, unspecified severity, without behavioral disturbance, psychotic disturbance, mood disturbance, and anxiety (principal); R51.9 Headache, unspecified; Z91.81 History of falling
CPT/HCPCS: 99281

== ENCOUNTER 2021-11-13 07:32 | Outpatient (REF) | payer MEDICARE, MEDICAID, SELFPAY ==
--- NOTE | ~2021-11-13 | XR_ITS ---
EXAMINATION: XR FACIAL BONES CLINICAL INFORMATION: Trauma COMPARISON: CT head dated 11/07/2021 TECHNIQUE: 3 views of the facial bones were obtained. FINDINGS: There are no fractures or dislocations. No bone, joint or soft tissue abnormality is demonstrated. XR/XR facial bones min 3V IMPRESSION: Unremarkable examination.
== END 2021-11-13 07:33 | disposition home or self-care (01) ==
LOC: HO.XRAY 07:32
PROVIDERS: PCP Internal Medicine; Visit Provider Internal Medicine
DX: S00.83XA Contusion of other part of head, initial encounter (principal)
CPT/HCPCS: 70150

== ENCOUNTER 2021-11-25 12:47 | Emergency (ER) | payer MEDICARE, MEDICAID, SELFPAY ==
--- NOTE | ~2021-11-25 | CT_ITS ---
EXAMINATION: CT HEAD WITHOUT CONTRAST CLINICAL INFORMATION: Falls. COMPARISON: Multiple priors, most recent CT head dated 11/07/2021. TECHNIQUE: Contiguous axial imaging was performed from the skull base to vertex without intravenous administration of contrast. This CT examination was performed using dose optimization techniques as appropriate, variously including the following: *Automated exposure control *Adjustment of mA and/or kV according to patient size (this includes techniques or standardized protocols for targeted exams where dose is matched to indication/reason for exam; i.e. extremities or head) *Use of iterative reconstruction technique DLP: 629 mGy-cm FINDINGS: There is no evidence of acute intracranial hemorrhage or territorial infarction. No abnormal mass effect or midline shift is seen. Redemonstration of right temporal lobe encephalomalacia and loss of daniels-white differentiation, unchanged and consistent with a chronic infarct. Otherwise, the daniels-white differentiation is maintained. No extra-axial fluid collections are identified. Prominence of the ventricles and sulci is redemonstrated consistent with diffuse atrophy. Hypoattenuation of the periventricular white matter is again noted consistent with chronic microvascular ischemic disease. Complex subcutaneous collection overlying the left frontal calvarium, slightly increased in size when compared to the CT dated 11/07/2021. Findings could represent a recurrent or evolving hematoma. No calvarial fracture. The mastoid air cells and visualized portions of the paranasal sinuses are well aerated. CT/CT head/brain wo con IMPRESSION: No acute intracranial hemorrhage or mass effect. Diffuse atrophy with chronic microvascular ischemic disease and chronic right-sided infarct appear unchanged. Enlarging left frontal subcutaneous collection which could represent a recurrent or evolving hematoma.
--- NOTE | 2021-11-25 12:53 | ECG_ITS ---
Test Reason : FALL Blood Pressure : / mmHG Vent. Rate : 108 BPM Atrial Rate : 000 BPM P-R Int : 000 ms QRS Dur : 078 ms QT Int : 346 ms P-R-T Axes : 000 085 -29 degrees QTc Int : 463 ms Atrial fibrillation with rapid ventricular response Abnormal QRS-T angle, consider primary T wave abnormality Abnormal ECG When compared with ECG of 19-OCT-2021 10:41, Vent. rate has increased BY 41 BPM Nonspecific T wave abnormality, improved in Anterior leads Referred By: Sara Khan Electronically Signed By:YONY LEE MD
--- NOTE | 2021-11-25 12:53 | ED.PSYCH ---
HPI - Psych General Chief Complaint: General Medical Stated Complaint: violent behaviors/worsening dementia Time Seen by Provider: 11/25/21 12:51 Source: patient, EMS and old records reviewed Mode of arrival: EMS Limitations: altered mental status History of Present Illness MD complaint: other (agitation, worsening dementia, aggressive) Onset (ago): day(s) Duration: getting worse Relieving factors: none Exacerbating factors: none Context: other (hx of similar episode) Associated psychiatric symptoms: none Associated symptoms: denies other symptoms Treatments prior to arrival: none Related Data Home Medications Medication Instructions Recorded Confirmed famotidine 20 mg tablet 20 mg PO BEDTIME tab 03/21/21 11/25/21 allopurinol 100 mg tablet 100 mg PO DAILY 05/30/21 11/25/21 rosuvastatin 10 mg tablet 10 mg PO DAILY 10/11/21 11/25/21 bisacodyl 10 mg rectal suppository 10 mg NM DAILY PRN 10/17/21 11/25/21 calcitriol 0.25 mcg capsule 0.25 mcg PO Q48H 11/01/21 11/25/21 metoprolol tartrate 50 mg tablet 75 mg PO BID 11/07/21 11/25/21 ergocalciferol (vitamin D2) 1,250 1 cap PO Q14D 11/25/21 11/25/21 mcg (50,000 unit) capsule Previous Rx's Medication Instructions Recorded apixaban 2.5 mg tablet (Eliquis) 2.5 mg PO BID 90 Days #180 tab 02/21/21 amlodipine 5 mg tablet 5 mg PO DAILY 90 Days #90 tab 06/09/21 thiamine HCl (vitamin B1) 100 mg 50 mg PO DAILY 90 Days #45 tab 08/09/21 tablet quetiapine 25 mg tablet 12.5 mg PO DAILY PRN #90 tab 11/01/21 Allergies Allergy/AdvReac Type Severity Reaction Status Date / Time NSAIDS (Non-Steroidal AdvReac Severe CONTRAINDICATED Verified 11/11/21 09:11 Anti-Inflamma DUE TO [NSAIDS (NON-STEROIDAL ANEMIA ANTI-INFLAMMA] atorvastatin [From LIPITOR] AdvReac Intermediate MUSCLE PAIN Verified 11/11/21 09:11 Review of Systems Review of Systems: ROS unable to be obtained due to altered mental status [facility] Past Medical History Attestation statement: The following information was validated with the patient. Medical History Asthma Bruise of face CKD (chronic kidney disease) Colon cancer Dementia Essential hypertension GERD (gastroesophageal reflux disease) Hypokalemia Pure hypercholesterolemia Surgical History History of bilateral cataract extraction History of laparoscopy Family History Family History Father No problems noted. Mother No problems noted. Social History Social History Household Members: None Housing: Care Home Unable to assess alcohol history related to: Unknown Alcohol intake: never Patient Tobacco Use Status: Former Tobacco user e-Cigarette/Vaping Use: Never Used Second Hand Smoke Exposure: No Advance Directives: No Advance Directives Information Provided: No Advance Directives Date on File: 10/11/21 service: No Current occupational status: retired and disabled Cognitive needs: Yes Hearing needs: No Vision needs: Yes Physical Exam Vital Signs: Vital Signs: Last Vital Signs Temp 98.4 F 11/25/21 14:11 Pulse 82 11/25/21 14:11 Resp 16 11/25/21 14:11 BP 112/68 11/25/21 14:11 Pulse Ox 99 11/25/21 14:11 BMI result Body Mass Index 16.0 Appearance: Alert. Oriented X to self calm and cooperative. No acute distress. Eyes: Pupils equal, round and reactive to light. ENT: Pharynx normal. Darkened bruises of varying age on both cheek areas and L upper forehead - appear old Neck: Normal inspection. Neck supple. CVS: Normal heart rate and rhythm. Pulses normal. Respiratory: No respiratory distress. Breath sounds normal. Abdomen: Soft and nontender. Skin: Skin warm and dry. Normal skin color. Normal skin turgor. Extremities: No lower extremity edema. No calf ttp Neuro: Oriented X to self moves all extremities, appears fatigued overall. No motor deficit. No sensory deficit. Course Course Course Narrative: Cr fluctuates - but around baseline at this time Patient placed in physician observation at 231pm. The indication for observation is that the patient needs more time to see CM for placement given family's inability to care for patient at this time. At this time the patient is well developed well nourished, lungs clear, CV slightly tachycardic given low dose metoprolol. abd nontender, neuro is at her baseline. MDM - Psych MDM Narrative Medical decision making narrative: 71 yo female with hx of UTI, PAF, falls, dementia with behavioral disturbances, CKD here with c/o being aggressive at home - at this time labs, CT head for new trauma ordered. Had psychiatric consult in September and senior care dementia unti was recommended at that time. Pending labs and CT head would refer to PT/CM. Lab Data Result diagrams: 11/25/21 14:04 11/25/21 14:04 Labs: Lab Results 11/25/21 11/25/21 11/25/21 Range/Units 14:04 14:04 14:04 WBC 5.8 (4.8-10.8) X10*3/uL RBC 3.86 L (4.20-5.50) X10*6/uL Hgb 11.8 L (12.0-16.0) g/dl Hct 37.3 (37.0-47.0) % MCV 96.6 (80.0-98.0) fL MCH 30.6 (27.0-33.0) pg MCHC 31.6 (31.0-35.0) g/dl RDW 15.8 (11.0-16.0) % Plt Count 255 (160-400) X10*3/uL MPV 9.9 (9.4-12.3) fL Immature Gran % (Auto) 0.3 (0.0-0.4) % Neut % (Auto) 54.3 (45-73) % Lymph % (Auto) 29.3 (20-40) % [place] % (Auto) 8.3 (2-11) % Eos % (Auto) 7.1 H (0-4) % Baso % (Auto) 0.7 (0-2) % Lymph # (Auto) 1.7 (1.2-4.9) X10*3/uL [place] # (Auto) 0.5 (0.1-1.2) X10*3/uL Eos # (Auto) 0.4 (0.0-0.4) X10*3/uL Baso # (Auto) 0.0 (0.0-0.2) X10*3/uL Abs Immat Gran (auto) 0.02 (0.00-0.03) X10*3/uL Absolute Neuts (auto) 3.1 (2.0-8.3) x10*3/uL Absolute Nucleated RBC 0.000 (0.0-0.012) X10*3/uL Nucleated RBC % (auto) 0.0 (0.0-0.2) /100WBC PT 16.4 H (9.9-13.0) SEC INR 1.4 H (0.9-1.1) Sodium 145 (135-145) mmol/L Potassium 3.7 (3.3-5.1) mmol/L Chloride 105 (96-108) mmol/L Carbon Dioxide 29 (22-29) mmol/L Anion Gap 15 (12-20) BUN 13 (9-16) mg/dL Creatinine 2.25 H (0.5-1.4) mg/dL Estim Creat Clear Calc 13.0 Estimated GFR 21 Random Glucose 104 (60-115) mg/dL Calcium 9.3 (8.4-10.2) mg/dL Magnesium 1.9 (1.6-2.6) mg/dL Total Bilirubin 1.4 H (0.0-1.0) mg/dL Direct Bilirubin 0.6 H (0.0-0.5) mg/dL AST 26 (5-31) U/L ALT 16 (0-31) U/L Alkaline Phosphatase 92 (39-117) U/L Total Protein 7.0 (6.5-8.0) g/dL Albumin 3.7 (3.5-5.0) g/dL COVID-19 (PHYLLIS) (Negative) COVID-19 Clin Com 11/25/21 Range/Units 14:04 WBC (4.8-10.8) X10*3/uL RBC (4.20-5.50) X10*6/uL Hgb (12.0-16.0) g/dl Hct (37.0-47.0) % MCV (80.0-98.0) fL MCH (27.0-33.0) pg MCHC (31.0-35.0) g/dl RDW (11.0-16.0) % Plt Count (160-400) X10*3/uL MPV (9.4-12.3) fL Immature Gran % (Auto) (0.0-0.4) % Neut % (Auto) (45-73) % Lymph % (Auto) (20-40) % [place] % (Auto) (2-11) % Eos % (Auto) (0-4) % Baso % (Auto) (0-2) % Lymph # (Auto) (1.2-4.9) X10*3/uL [place] # (Auto) (0.1-1.2) X10*3/uL Eos # (Auto) (0.0-0.4) X10*3/uL Baso # (Auto) (0.0-0.2) X10*3/uL Abs Immat Gran (auto) (0.00-0.03) X10*3/uL Absolute Neuts (auto) (2.0-8.3) x10*3/uL Absolute Nucleated RBC (0.0-0.012) X10*3/uL Nucleated RBC % (auto) (0.0-0.2) /100WBC PT (9.9-13.0) SEC INR (0.9-1.1) Sodium (135-145) mmol/L Potassium (3.3-5.1) mmol/L Chloride (96-108) mmol/L Carbon Dioxide (22-29) mmol/L Anion Gap (12-20) BUN (9-16) mg/dL Creatinine (0.5-1.4) mg/dL Estim Creat Clear Calc Estimated GFR Random Glucose (60-115) mg/dL Calcium (8.4-10.2) mg/dL Magnesium (1.6-2.6) mg/dL Total Bilirubin (0.0-1.0) mg/dL Direct Bilirubin (0.0-0.5) mg/dL AST (5-31) U/L ALT (0-31) U/L Alkaline Phosphatase (39-117) U/L Total Protein (6.5-8.0) g/dL Albumin (3.5-5.0) g/dL COVID-19 (PHYLLIS) Negative (Negative) COVID-19 Clin Com See Note ECG Data Attestation: I personally reviewed and interpreted this ECG as follows: ECG interpretation date: 11/25/21 ECG interpretation time: 14:11 Interpretation: Rate: 108 Rhythm: afib [place]: normal Normal QRS complex. ST T wave : nonspecific no CHARLY qTC: normal prior studies: no sig ischemia The study has been interpreted contemporaneously by me. . Discharge Plan Discharge Clinical Impression: Dementia Qualifiers: Dementia type: unspecified type Dementia behavioral disturbance: with behavioral disturbance Qualified Code(s): F03.91 - Unspecified dementia with behavioral disturbance Patient Disposition: Still a Patient Prescriptions: No Action amlodipine 5 mg tablet 5 mg PO DAILY 90 Days Qty: 90 3RF thiamine HCl (vitamin B1) 100 mg tablet 50 mg PO DAILY 90 Days Qty: 45 1RF famotidine 20 mg tablet 20 mg PO BEDTIME 0RF rosuvastatin 10 mg tablet 10 mg PO DAILY 0RF bisacodyl 10 mg Suppository 10 mg NM DAILY PRN (Reason: Constipation) 0RF metoprolol tartrate 50 mg tablet 75 mg PO BID 0RF Protocol: Hold for SBP/HR < HOLD for SBP < : 90 HOLD for HR < : 60 ergocalciferol (vitamin D2) 1,250 mcg (50,000 unit) capsule 1 cap PO Q14D 0RF allopurinol 100 mg tablet 100 mg PO DAILY 0RF calcitriol 0.25 mcg capsule 0.25 mcg PO Q48H 0RF quetiapine 25 mg tablet 12.5 mg PO DAILY PRN (Reason: psychotic ) Qty: 90 0RF Eliquis 2.5 mg tablet 2.5 mg PO BID 90 Days Qty: 180 4RF
[2021-11-25 13:11] VITALS: BP 113/75; BP 120/67; PULSE 100; PULSE 110; RESP 18; TEMP 36.9; O2SAT 97; O2SAT 98; BMI 16.0
[2021-11-25 14:07] LABS: MANUAL DIFF FLAG NO
[2021-11-25 14:09] LABS: Basophils Percent Auto 0.7 % (0-2); Eosinophils Absolute Auto 0.4 X10*3/uL (0.0-0.4); Eosinophils Percent Auto 7.1 % (0-4); Hematocrit 37.3 % (37.0-47.0); Hemoglobin 11.8 g/dl (12.0-16.0); Imm Gran Abs Auto 0.02 X10*3/uL (0.00-0.03); Imm Gran Pct Auto 0.3 % (0.0-0.4); Lymphocytes Absolute Auto 1.7 X10*3/uL (1.2-4.9); Lymphocytes Percent Auto 29.3 % (20-40); Mean Corpuscular HGB Conc 31.6 g/dl (31.0-35.0); Mean Corpuscular Hemoglobin 30.6 pg (27.0-33.0); Mean Corpuscular Volume 96.6 fL (80.0-98.0); Mean Platelet Volume 9.9 fL (9.4-12.3); Monocytes Absolute Auto 0.5 X10*3/uL (0.1-1.2); Monocytes Percent Auto 8.3 % (2-11); Neutrophils Absolute Auto 3.1 x10*3/uL (2.0-8.3); Neutrophils Percent Auto 54.3 % (45-73); Platelet Count 255 X10*3/uL (160-400); Red Blood Count 3.86 X10*6/uL (4.20-5.50); Red Cell Distribution Width 15.8 % (11.0-16.0); White Blood Count 5.8 X10*3/uL (4.8-10.8)
[2021-11-25 14:11] VITALS: BP 112/68; PULSE 82; RESP 16; TEMP 36.9; O2SAT 99
[2021-11-25 14:18] LABS: INTERNATIONAL NORM RATIO 1.4 (0.9-1.1); Prothrombin Time 16.4 SEC (9.9-13.0)
[2021-11-25] MEDS: Metoprolol Tartrate 25 MG TABLET 12.5 MG PO (14:21)
[2021-11-25 14:24] LABS: COVID-19 Test Negative (Negative); IDNOW Serial# 16C4AD1C
[2021-11-25 14:26] LABS: Alanine Aminotransferase 16 U/L (0-31); Albumin Level 3.7 g/dL (3.5-5.0); Alkaline Phosphatase 92 U/L (39-117); Anion Gap 15 (12-20); Aspartate Amino Transferase 26 U/L (5-31); Bilirubin Direct 0.6 mg/dL (0.0-0.5); Bilirubin Total 1.4 mg/dL (0.0-1.0); Blood Urea Nitrogen 13 mg/dL (9-16); Calcium 9.3 mg/dL (8.4-10.2); Carbon Dioxide 29 mmol/L (22-29); Chloride 105 mmol/L (96-108); Estimated Glomerular Filt Rate 21; Glucose Random 104 mg/dL (60-115); Magnesium 1.9 mg/dL (1.6-2.6); Potassium 3.7 mmol/L (3.3-5.1); Sodium 145 mmol/L (135-145)
[2021-11-25] MEDS: calcitrioL 0.25 MCG CAPSULE PO (15:51)
[2021-11-25 17:48] VITALS: BP 147/75; PULSE 71; RESP 16; O2SAT 98
[2021-11-25] MEDS: Apixaban 2.5 MG TABLET PO (21:59)
[2021-11-25] MEDS: Metoprolol Tartrate 25 MG TABLET 75 MG PO (22:00)
[2021-11-25] MEDS: Famotidine 20 MG TABLET PO (22:01)
[2021-11-25 22:03] VITALS: BP 134/72; PULSE 104; RESP 16; TEMP 36.4; O2SAT 99
[2021-11-26] VITALS: BP 132/47; PULSE 81; RESP 16; TEMP 36.8; O2SAT 96
--- NOTE | 2021-11-26 05:12 | PC.NURSE ---
Patient is restless, agitated, psychotic-unable to redirect patient. This health technical writer attempted to administer Benadryl and Seroquel-patient refused-cursing and yelling to this health technical writer and tech. Provider notified.
--- NOTE | 2021-11-26 05:44 | PC.NURSE ---
Patient transferred to ED bed 13 closer to nursing station with bed alarm to prevent falls. Patient currently in bed, resting with her eyes closed- no s/s of anxiety/agitation/psychosis noted at present.
[2021-11-26 06:25] LABS: Appearance Urine CLEAR; Color Urine YELLOW; Glucose Urine UA NEG (NEG); Leukocyte Esterase Urine NEG (NEG); Nitrite Urine NEG (NEG); UACC Culture Trigger NO; Urine Blood 1+ (NEG); Urine Ketones NEG (NEG); Urine Protein 1+ MG/DL (NEG-TRACE)
[2021-11-26 06:32] LABS: Bacteria Urine 1+ /LPF; RBC Urine 0-2 /HPF (0); Squamous Epithelial Cell Urine 2+ /LPF
--- NOTE | 2021-11-26 08:03 | PC.NURSE ---
did not eat breakfast, refused vitals, laying in beddddddddddddddd, awake, nad skin wpd
[2021-11-26 09:33] VITALS: BP 132/47; PULSE 81; O2SAT 96
[2021-11-26] MEDS: Apixaban 2.5 MG TABLET PO (09:33)
[2021-11-26] MEDS: Thiamine HCL 100 MG TABLET 50 MG PO (09:33)
[2021-11-26] MEDS: amLODIPine Besylate 5 MG TABLET PO (09:34)
[2021-11-26] MEDS: Metoprolol Tartrate 25 MG TABLET 75 MG PO (09:37)
--- NOTE | 2021-11-26 09:56 | MHC.CM.ED ---
Received case management consult overnight. Patient is well known to Case Management. Patient has history of advanced dementia with some aggressive behaviors and wandering. Physical therapy eval completed. LTC is recommended. Met with patient and /HCP, Fatoumata in regards to discharge planning. Patient is active wt [facility]. Copy of HCP verified to be on file. PCP is Dr Pola Pabon. Patient received 3 Pfizer vaccines and was positive for Covid on 11/07. Fatoumata is not interested in LTC placement because he can't afford their apartment without her social security income. He is requesting long-term care so he can get respite from taking care of his 19/01 due to caregiver fatigue. He is aware patient will need a locked unit due to wandering. He also doesn't the patient to go too far . Referral broadcasted in [facility]. Fatoumata hasn't been giving the patient her PRN Seroquel because he gave it to her once during the day and she became very drowsy. T/W encouraged Fatoumata to give 1 dose at night in order to help the patient get on a better sleep/wake cycle. Fatoumata verbalized understanding. Continue to monitor for d/c needs.
[2021-11-26 11:52] VITALS: BP 104/56; PULSE 81; RESP 12; TEMP 36.8; O2SAT 98
[2021-11-26] MEDS: QUEtiapine Fumarate 25 MG TABLET 12.5 MG PO (17:15)
--- NOTE | 2021-11-26 19:01 | PC.NURSE ---
Pt moved to hospital working with bed alarm. [employer] camera set up at bedside.
--- NOTE | 2021-11-26 19:03 | PC.NURSE ---
avasure set up at this time.
[2021-11-26 22:00] VITALS: RESP 16
--- NOTE | 2021-11-26 22:01 | PC.NURSE ---
MULTIPLE ATTEMPTS TO WAKE PATIENT UP FOR 2100 MEDS. PT REFUSING EACH TIME.
[2021-11-26 22:28] VITALS: BP 149/82; PULSE 99; O2SAT 97
[2021-11-27] VITALS (7 sets, daily range): BP systolic 108–155; BP diastolic 60–85; PULSE 82–112; RESP 16–18; TEMP 35.9; O2SAT 95–99
--- NOTE | 2021-11-27 01:21 | PC.NURSE ---
pt refused vitals. RN aware.
--- NOTE | 2021-11-27 07:41 | PC.NURSE ---
Patient is asleep on stretcher at this time. Respirations regular and even. Skin PWD. Patient is asleep at this time. [employer] at bedside. Patient is case management consult at this time.
--- NOTE | 2021-11-27 07:44 | MHC.CM.ED ---
Addendum entered by Vesta Huntley 11/27/21 12:04: [facility] is not able to offer a bed. [facility] doesn't have a bed to offer. Still waiting to hear from [facility]. [facility] Left voicemail requesting return telephone call. Original Note: Patient remains in ER. [facility], [facility] and [facility] are still reviewing. Messages sent to these facilities via [employer]. Continue to monitor for d/c needs.
[2021-11-27] MEDS: Metoprolol Tartrate 25 MG TABLET 75 MG PO ×2 (10:49→22:16)
[2021-11-27] MEDS: Thiamine HCL 100 MG TABLET 50 MG PO (10:50)
[2021-11-27] MEDS: amLODIPine Besylate 5 MG TABLET PO (10:50)
[2021-11-27] MEDS: Apixaban 2.5 MG TABLET PO ×2 (10:51→22:16)
--- NOTE | 2021-11-27 11:13 | PC.NURSE ---
Patient sitting upright in bed and reports comfort. Family at bedside. Patient is calm and cooperative. Respiration regular and even. Skin PWD. Patient is awaiting placement at this time. Will continue to monitor.
--- NOTE | 2021-11-27 15:41 | MHC.CM.ED ---
Patient remains in ER. [facility] is not able to offer a bed. Waiting to hear from [facility]. Left voicemail at [facility] for liaison and sent message in [facility]. Referral broadcasted within 50 miles at this time. Patient's , Tana, is aware that we're still waiting for [facility]'s response and that placement could be up to 50 miles. Continue to monitor for d/c needs.
--- NOTE | 2021-11-27 18:25 | MHC.CM.ED ---
[facility] continues to review. 5 facilities have not yet responded to bed request. Pt now in ED Overflow. with patient. Hopeful patient can transfer tomorrow if bed offered. CM to follow for d/c needs.
[2021-11-27] MEDS: calcitrioL 0.25 MCG CAPSULE PO (18:51)
[2021-11-27] MEDS: Famotidine 20 MG TABLET PO (22:17)
--- NOTE | 2021-11-28 02:53 | PC.NURSE ---
Pt became agitated and started to wander. Tani AGUIRRE and Helen lopez tried to reorient and guid pt back to her bed. Pt then became agitated and tried to scratch Helen lopez, but Helen suffered no injuries. Pt was then able to be redirected into her bed, but pt was still agitated. Tani AGUIRRE tried to get pt to take her PRN seroquel, but pt began crying. Pt is beginning to settle down back to sleep, but is still moaning at times. Will continue to monitor.
[2021-11-28] MEDS: Metoprolol Tartrate 25 MG TABLET 75 MG PO (09:26)
[2021-11-28] MEDS: Thiamine HCL 100 MG TABLET 50 MG PO (09:26)
[2021-11-28 09:27] VITALS: BP 111/67; PULSE 103; RESP 16; TEMP 36.4; O2SAT 97
[2021-11-28] MEDS: Apixaban 2.5 MG TABLET PO ×2 (09:27→20:39)
[2021-11-28] MEDS: amLODIPine Besylate 5 MG TABLET PO (09:27)
--- NOTE | 2021-11-28 11:08 | PC.NURSE ---
Pt is alert to self, at bedside. Pt ambulatory with on the unit. Pt can be very confused and not directable at times. Pt requiring constant redirection when is not at bedside. Pt took all of her meds this AM. pt takes meds whole with water. no issues noted. pt denies pain.
--- NOTE | 2021-11-28 13:01 | PC.NURSE ---
Patient continuously walking in unit, attempting redirecting, pushing staff, refusing medication at this time, at bedside and trying to help staff
--- NOTE | 2021-11-28 13:06 | PC.NURSE ---
Refusing prn seroquel i am not taking that shit
--- NOTE | 2021-11-28 15:02 | PC.NURSE ---
Pt continues to ambulate in the unit, needs continuous redirection. Pt at one point refusing to get to bed, hitting staff. pt fell asleep in the employee break room. RN and tech moved pt to the chair and pt fell asleep in chair. Provider made aware or pts agitation.
--- NOTE | 2021-11-28 19:21 | PC.NURSE ---
pt running arounnd the unit, unable to be redirected back to bed, pt striking staff, pt attempting to bite staff, and pt throwing around hospital equipment, EDT at pt side to try to redirect pt back to bed, this RN spoke with hospitalist for medication for agitation. all safety measures maintained at this time.
[2021-11-28 19:42] VITALS: BP 96/61; PULSE 111; RESP 20; O2SAT 100
[2021-11-28] MEDS: Haloperidol Lactate 5 MG/ML VIAL IM (19:42)
[2021-11-28 19:57] VITALS: BP 104/57; PULSE 113; RESP 16; TEMP 36.6; O2SAT 99
[2021-11-28 20:12] VITALS: BP 97/66; PULSE 100; RESP 16; TEMP 36.6; O2SAT 99
[2021-11-28 20:27] VITALS: BP 103/56; PULSE 111; RESP 14; TEMP 36.7; O2SAT 98
--- NOTE | 2021-11-28 20:36 | PC.NURSE ---
Patient's blood pressure soft, 103/56 heart rate 111, held Metoprolol 75mg PO as per Dr Chawla. Will monitor closely.
[2021-11-28] MEDS: Famotidine 20 MG TABLET PO (20:39)
[2021-11-28 20:42] VITALS: BP 105/62; PULSE 106; RESP 16; O2SAT 99
--- NOTE | 2021-11-28 21:01 | PC.NURSE ---
pt note secondary to pt care, this RN contacted provider for order for chemical restraint. pt medicated per AUG previously, pt VSS. pt sleeping all safety measures maintained.
--- NOTE | 2021-11-29 00:45 | PC.NURSE ---
this RN attempt to take pt VS, pt attempt to strike this RN, all safety measures maintained. pt educated on the importance of not hitting staff.
--- NOTE | 2021-11-29 05:34 | PC.NURSE ---
pt refusing VS at this time.
--- NOTE | 2021-11-29 07:28 | PC.NURSE ---
Patient refuse vital signs x2
--- NOTE | 2021-11-29 08:55 | MHC.CM.ED ---
Addendum entered by Vesta Huntley 11/29/21 10:44: [facility] is not able to offer a bed. Met with patient and . agreeable to referral up to 100 miles. Referral made via [facility]. Original Note: Patient remains in ER overflow. [facility] has not responded if they can offer a bed or not. Still trying to reach out to facility. Continue to monitor for d/c needs.
[2021-11-29 10:00] VITALS: BP 121/67; PULSE 110; RESP 20; TEMP 36.9; O2SAT 96
[2021-11-29] MEDS: amLODIPine Besylate 5 MG TABLET PO (10:04)
[2021-11-29] MEDS: Thiamine HCL 100 MG TABLET 50 MG PO (10:04)
[2021-11-29] MEDS: Apixaban 2.5 MG TABLET PO (10:05)
[2021-11-29] MEDS: Metoprolol Tartrate 25 MG TABLET 75 MG PO (10:05)
--- NOTE | 2021-11-29 19:20 | PC.NURSE ---
Took report from Rola to assume care of Pt, Pt sleeping, chest rise and fall observed, call light in reach, this RN continues to monitor.
[2021-11-29 20:00] VITALS: BP 119/67; PULSE 100; RESP 16; TEMP 36.7; O2SAT 98
[2021-11-29 21:53] VITALS: RESP 16
--- NOTE | 2021-11-29 22:12 | PC.NURSE ---
PATIENT REFUSED DINNER ,DRANK 60 ML OF EDIE ALANNA ,VOIDED 2 TIMES IN BATHROOM ,SLEPT MOST OF SHIFT .
--- NOTE | 2021-11-30 00:20 | PC.NURSE ---
PATIENT GOT UP TO USE THE BATHROOM ,VOIDED LARGE AMOUNT OF URINE .
--- NOTE | 2021-11-30 02:22 | PC.NURSE ---
patient continue sleeping at this time ,warm blanket given .
--- NOTE | 2021-11-30 02:49 | PC.NURSE ---
patient got up to use rest room ,void large amount ,then back to bed warm blanket given offer patient fluids ,but refused ,patient was very cooperative when re directed back to bed ,she saw a wheeled chair and said she does not use that .
[2021-11-30 07:27] VITALS: BP 140/80; PULSE 126; RESP 18; TEMP 36.5; O2SAT 93
[2021-11-30] MEDS: Metoprolol Tartrate 25 MG TABLET 75 MG PO ×2 (11:18→20:17)
[2021-11-30] MEDS: Thiamine HCL 100 MG TABLET 50 MG PO (11:19)
[2021-11-30] MEDS: Apixaban 2.5 MG TABLET PO ×2 (11:19→20:18)
[2021-11-30] MEDS: amLODIPine Besylate 5 MG TABLET PO (11:19)
[2021-11-30] MEDS: allopurinoL 100 MG TABLET PO (11:19)
--- NOTE | 2021-11-30 12:16 | PC.NURSE ---
some morning meds were not loaded in overflow pyxis. this singer songwriter spoke with Kal in pharmacy. meds loaded past scheduled administration time. meds given late
[2021-11-30 13:02] VITALS: BP 107/68; PULSE 100
--- NOTE | 2021-11-30 17:07 | PC.NURSE ---
patient awake/alert to baseline, pt oob with assist ambulating on unit, pt denies pain or discomfort, family left for the afternoon, call solares within reach, will continue to monitor.
[2021-11-30 19:46] VITALS: BP 133/76; PULSE 112; RESP 18; TEMP 35.9; O2SAT 99
[2021-11-30] MEDS: Famotidine 20 MG TABLET PO (20:17)
[2021-11-30] MEDS: QUEtiapine Fumarate 25 MG TABLET 12.5 MG PO (20:17)
--- NOTE | 2021-11-30 20:38 | PC.NURSE ---
patient alert to baseline, pt ambulating with stby assist with tech, pt medicated per order, no c/o pain or discomfort, call solares within reach, will continue to monitor.
[2021-11-30] MEDS: diphenhydrAMINE HCL 25 MG TABLET PO (23:19)
[2021-12-01] VITALS: BP 123/70; PULSE 93; RESP 18; O2SAT 99
--- NOTE | 2021-12-01 01:43 | PC.NURSE ---
Took over care of patient around 2300. Pt restless and walking around the unit. Benadryl ordered and given around 23:21 with good effect. Pt alert to self per baseline. Denies pain. Midnight VSS. At present, pt resting comfortably with eyes closed. Bed alarm on for safety and call solares within reach. Will continue to monitor.
[2021-12-01] MEDS: Thiamine HCL 100 MG TABLET 50 MG PO (08:59)
[2021-12-01] MEDS: Apixaban 2.5 MG TABLET PO ×2 (08:59→21:30)
[2021-12-01] MEDS: Metoprolol Tartrate 25 MG TABLET 75 MG PO ×2 (08:59→21:30)
[2021-12-01] MEDS: amLODIPine Besylate 5 MG TABLET PO (08:59)
[2021-12-01] MEDS: allopurinoL 100 MG TABLET PO (08:59)
[2021-12-01 11:00] VITALS: BP 125/69; PULSE 94; TEMP 36.7; O2SAT 100
--- NOTE | 2021-12-01 12:08 | PC.NURSE ---
pt compliant with meds. ate 50% of breakfast, pt walking around unit with . vss. no complaints. Camera in room for monitoring and bed alarm in place to maintain safety
[2021-12-01 14:04] VITALS: BP 100/58; PULSE 98; RESP 20; O2SAT 98
[2021-12-01 20:41] VITALS: BP 115/82; PULSE 101; RESP 18; O2SAT 96
[2021-12-01] MEDS: QUEtiapine Fumarate 25 MG TABLET 12.5 MG PO (21:30)
[2021-12-01] MEDS: Famotidine 20 MG TABLET PO (21:30)
[2021-12-02 00:05] VITALS: RESP 16
--- NOTE | 2021-12-02 05:07 | PC.NURSE ---
PER SHIFT REPORT RECEIVED SEROQUEL PO APPROX 9:30 PM..DOZING AT HS...REFUSED VITAL SIGNS/PERFECT BINDER SETTER AT HS..NAAPING W/O DIFFICULTY..AWAKE..CALLING OUT 4AM...OOB TO BR WITH ASSIST TO VOID..BACK TO BED..RESPIRATIONS EASY..NO DISTRESS...REFUSED VITAL SIGNS..RESISTANT TO CARE..SETTLED SELF FOR SLEEP..DOZING..RESPIRATIONS EASY
[2021-12-02] MEDS: Apixaban 2.5 MG TABLET PO (09:47)
[2021-12-02] MEDS: Metoprolol Tartrate 25 MG TABLET 75 MG PO (09:47)
[2021-12-02] MEDS: allopurinoL 100 MG TABLET PO (09:48)
[2021-12-02] MEDS: amLODIPine Besylate 5 MG TABLET PO (09:48)
[2021-12-02] MEDS: Thiamine HCL 100 MG TABLET 50 MG PO (09:48)
[2021-12-02 10:03] VITALS: BP 134/70; PULSE 96; RESP 14; O2SAT 98
--- NOTE | 2021-12-02 10:39 | PC.NURSE ---
family at bedside. pt medicated per emar. awaiting placement. pt has been in behavioral control.
--- NOTE | 2021-12-02 11:02 | MHC.CM.ED ---
Addendum entered by Vesta Huntley 12/02/21 12:02: No bed offers at this time. Met with patient and , Tana in regards to discharge planning. Tana is willing to take her home but is requesting more help at home. T/W explained patient is active with [facility]. Brianna will need to speak to the [facility] nurse about getting a social media marketer and home health aide into the home. Tana verbalizes understanding and will transport patient home after she eats lunch. Samantha AGUIRRE and Ana Paula FRIEND aware. Original Note: Patient remains in ER overflow. [facility] doesn't haved a bed. [facility] is still reviewing. Received voicemail from patient's stating that 100 miles would be too far. If a local facility can't be found, Tana will take patient home. Continue to monitor for d/c needs.
== END 2021-12-02 12:17 | disposition home or self-care (01) ==
PROVIDERS: Emergency Medicine; Emergency Provider Emergency Medicine Emergency Medical Services; PCP Internal Medicine
DX: F03.91 Unspecified dementia, unspecified severity, with behavioral disturbance (principal); R51.9 Headache, unspecified; Z87.891 Personal history of nicotine dependence; Z20.822 Contact with and (suspected) exposure to COVID-19; Z79.899 Other long term (current) drug therapy
CPT/HCPCS: 70450; 80048; 80076; 81001; 83735; 85025; 85610; 87635; 93005; 97162; 99285; Q0163

== ENCOUNTER 2021-12-09 07:02 | Emergency (ER) | payer MEDICARE, MEDICAID, SELFPAY ==
--- NOTE | 2021-12-09 07:10 | ED_ITS ---
HPI - General Adult General Chief complaint: General Medical Stated complaint: not taking meds/combative Time Seen by Provider: 12/09/21 07:10 Source: family, EMS and old records reviewed Mode of arrival: EMS Limitations: no limitations and physical limitation (Dimension) History of Present Illness HPI narrative: 71 years old female came in by EMS for agitation, violent behavior, do not want to take her medication. As per orders record and EMS patient at baseline is oriented to self only get episode of aggression and violent behavior, patient was diagnosed with dementia lives home with her and family. Patient in the emergency department is quite and mute, mostly noncooperative no aggression was noted in the ED. Related Data Home Medications Medication Instructions Recorded Confirmed famotidine 20 mg tablet 20 mg PO BEDTIME 03/21/21 12/05/21 allopurinol 100 mg tablet 100 mg PO DAILY Gout 05/30/21 12/05/21 rosuvastatin 10 mg tablet 10 mg PO DAILY 10/11/21 12/05/21 bisacodyl 10 mg rectal suppository 10 mg IA DAILY PRN Constipation 10/17/21 12/05/21 calcitriol 0.25 mcg capsule 0.25 mcg PO Q48H 11/01/21 12/05/21 metoprolol tartrate 50 mg tablet 75 mg PO BID 11/07/21 12/05/21 ergocalciferol (vitamin D2) 1,250 1 cap PO Q14D 11/25/21 12/05/21 mcg (50,000 unit) capsule Previous Rx's Medication Instructions Recorded apixaban 2.5 mg tablet (Eliquis) 2.5 mg PO BID 90 days #180 tabs 02/21/21 amlodipine 5 mg tablet 5 mg PO DAILY 90 days #90 tabs 06/09/21 thiamine HCl (vitamin B1) 100 mg 50 mg PO DAILY 90 days #45 tabs 08/09/21 tablet quetiapine 25 mg tablet 12.5 mg PO DAILY PRN psychotic 11/01/21 #90 tabs Allergies Allergy/AdvReac Type Severity Reaction Status Date / Time NSAIDS (Non-Steroidal AdvReac Severe CONTRAINDICATED Verified 12/05/21 09:03 Anti-Inflamma DUE TO [NSAIDS (NON-STEROIDAL ANEMIA ANTI-INFLAMMA] atorvastatin [From LIPITOR] AdvReac Intermediate MUSCLE PAIN Verified 12/05/21 09:03 Review of Systems Review of Systems: Yes Unobtainable due to mental condition [facility] Past Medical History Medical History Asthma Bruise of face CKD (chronic kidney disease) Colon cancer Dementia Essential hypertension GERD (gastroesophageal reflux disease) Hypokalemia Pure hypercholesterolemia Surgical History History of bilateral cataract extraction History of laparoscopy Family History Family History Father No problems noted. Mother No problems noted. Social History Social History Household Members: Spouse Housing: Apartment Unable to assess alcohol history related to: Unknown Alcohol intake: never Patient Tobacco Use Status: Former Tobacco user e-Cigarette/Vaping Use: Never Used Second Hand Smoke Exposure: Yes Advance Directives: Yes Advance Directives on File: Yes Advance Directives Date on File: 10/11/21 service: No Current occupational status: retired and disabled Cognitive needs: Yes Hearing needs: No Vision needs: Yes Physical Exam ED Vital Signs: Vital Signs - 24 hr 12/09/21 07:11 12/09/21 08:22 Pulse Rate 84 Respiratory Rate 18 18 Blood Pressure 146/83 H BMI result Body Mass Index 15.7 Appearance: Alert. Patient is mute and nonverbal at the moment. Follow the examiner commands intermittently. Head: Normal external exam. Normocephalic. Atraumatic. No Boothe signs noted. No raccoon eyes noted Eyes: PERRLA. EOMI. Conjunctiva and sclera normal. Eyelids normal. ENT: TM's Normal. Pharynx normal. Uvula midline. Moist mucous membranes. No trismus noted. No drooling noted. No muffled voice noted. Neck: Normal inspection. Neck supple. FROM. No adenopathy. Thyroid Normal. No meningeal signs. No neck mass noted. CVS: Normal heart rate and rhythm. Heart sound normal. No murmurs noted. Pulses normal throughout. Respiratory: No respiratory distress. Painless inspiration. Breath sounds normal. No wheezes/rales/rhonchi noted. Chest nontender. No accessory muscle usage noted or decreased air movement noted. Abdomen: Soft and nontender. Bowel sounds normal in all 4 quadrants. No distention noted. No organomegaly noted. No visible injury noted. Back: No CVA tenderness. Full range of motion noted. Skin: Skin warm and dry. Normal skin color. Normal skin turgor. No rashes/lesions/lacerations noted. Extremities: No lower extremity edema. Extremities exhibit normal range of motion. Extremities nontender. Neuro: Awake Cranial nerve exam: II-XII are grossly intact No motor deficit. No sensory deficit. Reflexes normal. Course Course Course Narrative: 7:30 Physician observation started at . Patient placed in physician observation because the patient needed more time for medication to work and to see case management for evaluation and the need for placement patient's vital sign were stable, patient is alert and oriented , neuro exam unchanged, unremarkable rest of physical exam. Reevaluation(s) Reevaluation #1: Patient now is calm and cooperative, at the bedside willing to take the patient home, patient wants to go home and takes her medication. Multiple attempts in the past for patient placement patient require a locked dementia unit. Which is not available currently. Time: 09:33 Medical Decision Making Lab Data Lab results reviewed: Yes I reviewed the patient's lab results. Result diagrams: 12/09/21 08:05 12/09/21 08:05 Labs: Lab Results 12/09/21 12/09/21 Range/Units 08:05 08:05 WBC 5.6 (4.8-10.8) X10*3/uL RBC 3.96 L (4.20-5.50) X10*6/uL Hgb 12.4 (12.0-16.0) g/dl Hct 39.3 (37.0-47.0) % MCV 99.2 H (80.0-98.0) fL MCH 31.3 (27.0-33.0) pg MCHC 31.6 (31.0-35.0) g/dl RDW 15.2 (11.0-16.0) % Plt Count 186 D (160-400) X10*3/uL MPV 11.5 (9.4-12.3) fL Immature Gran % (Auto) 0.4 (0.0-0.4) % Neut % (Auto) 52.5 (45-73) % Lymph % (Auto) 25.6 (20-40) % [place] % (Auto) 9.0 (2-11) % Eos % (Auto) 11.2 H (0-4) % Baso % (Auto) 1.3 (0-2) % Lymph # (Auto) 1.4 (1.2-4.9) X10*3/uL [place] # (Auto) 0.5 (0.1-1.2) X10*3/uL Eos # (Auto) 0.6 H (0.0-0.4) X10*3/uL Baso # (Auto) 0.1 (0.0-0.2) X10*3/uL Abs Immat Gran (auto) 0.02 (0.00-0.03) X10*3/uL Absolute Neuts (auto) 2.9 (2.0-8.3) x10*3/uL Absolute Nucleated RBC 0.000 (0.0-0.012) X10*3/uL Nucleated RBC % (auto) 0.0 (0.0-0.2) /100WBC Sodium 143 (135-145) mmol/L Potassium 4.1 (3.3-5.1) mmol/L Chloride 106 (96-108) mmol/L Carbon Dioxide 27 (22-29) mmol/L Anion Gap 14 (12-20) BUN 15 (9-16) mg/dL Creatinine 2.04 H (0.5-1.4) mg/dL Estim Creat Clear Calc 15.1 Estimated GFR 24 Random Glucose 97 (60-115) mg/dL Calcium 8.8 (8.4-10.2) mg/dL Discharge Plan Discharge Clinical Impression: Dementia, Dementia with behavioral disturbance Patient Disposition: Home, Self-Care Instructions: Dementia (ED) Prescriptions: No Action amlodipine 5 mg tablet 5 mg PO DAILY 90 Days Qty: 90 3RF thiamine HCl (vitamin B1) 100 mg tablet 50 mg PO DAILY 90 Days Qty: 45 1RF famotidine 20 mg tablet 20 mg PO BEDTIME rosuvastatin 10 mg tablet 10 mg PO DAILY bisacodyl 10 mg Suppository 10 mg IA DAILY PRN (Reason: Constipation) metoprolol tartrate 50 mg tablet 75 mg PO BID Protocol: Hold for SBP/HR < HOLD for SBP < : 90 HOLD for HR < : 60 ergocalciferol (vitamin D2) 1,250 mcg (50,000 unit) capsule 1 cap PO Q14D allopurinol 100 mg tablet 100 mg PO DAILY calcitriol 0.25 mcg capsule 0.25 mcg PO Q48H quetiapine 25 mg tablet 12.5 mg PO DAILY PRN (Reason: psychotic ) Qty: 90 0RF Eliquis 2.5 mg tablet 2.5 mg PO BID 90 Days Qty: 180 4RF Referrals: Physician,Unknown J [Primary Care Provider] -
[2021-12-09 07:11] VITALS: BP 100/60; BP 146/83; PULSE 100; PULSE 84; RESP 18; O2SAT 95; BMI 15.7
--- NOTE | 2021-12-09 07:13 | PC.NURSE ---
patient not allowing RN to assess her/obtain all vital signs at this time.
[2021-12-09 08:08] LABS: MANUAL DIFF FLAG NO
[2021-12-09 08:16] LABS: Basophils Absolute Auto 0.1 X10*3/uL (0.0-0.2); Basophils Percent Auto 1.3 % (0-2); Eosinophils Absolute Auto 0.6 X10*3/uL (0.0-0.4); Eosinophils Percent Auto 11.2 % (0-4); Hematocrit 39.3 % (37.0-47.0); Hemoglobin 12.4 g/dl (12.0-16.0); Imm Gran Abs Auto 0.02 X10*3/uL (0.00-0.03); Imm Gran Pct Auto 0.4 % (0.0-0.4); Lymphocytes Absolute Auto 1.4 X10*3/uL (1.2-4.9); Lymphocytes Percent Auto 25.6 % (20-40); Mean Corpuscular HGB Conc 31.6 g/dl (31.0-35.0); Mean Corpuscular Hemoglobin 31.3 pg (27.0-33.0); Mean Corpuscular Volume 99.2 fL (80.0-98.0); Mean Platelet Volume 11.5 fL (9.4-12.3); Monocytes Absolute Auto 0.5 X10*3/uL (0.1-1.2); Neutrophils Absolute Auto 2.9 x10*3/uL (2.0-8.3); Neutrophils Percent Auto 52.5 % (45-73); Platelet Count 186 X10*3/uL (160-400); Red Blood Count 3.96 X10*6/uL (4.20-5.50); Red Cell Distribution Width 15.2 % (11.0-16.0); White Blood Count 5.6 X10*3/uL (4.8-10.8)
[2021-12-09 08:22] VITALS: RESP 18
[2021-12-09 08:29] LABS: Anion Gap 14 (12-20); Blood Urea Nitrogen 15 mg/dL (9-16); Calcium 8.8 mg/dL (8.4-10.2); Carbon Dioxide 27 mmol/L (22-29); Chloride 106 mmol/L (96-108); Creatinine Clr Calc Pharmacy 15.1; Estimated Glomerular Filt Rate 24; Glucose Random 97 mg/dL (60-115); Potassium 4.1 mmol/L (3.3-5.1); Sodium 143 mmol/L (135-145)
== END 2021-12-09 09:47 | disposition home or self-care (01) ==
PROVIDERS: Emergency Provider Emergency Medicine
DX: F03.91 Unspecified dementia, unspecified severity, with behavioral disturbance (principal); I12.9 Hypertensive chronic kidney disease with stage 1 through stage 4 chronic kidney disease, or unspecified chronic kidney disease; N18.9 Chronic kidney disease, unspecified; J45.909 Unspecified asthma, uncomplicated
CPT/HCPCS: 36415; 80048; 85025; 99283

== ENCOUNTER 2021-12-10 07:40 | Emergency (ER) | payer MEDICARE, MEDICAID, SELFPAY ==
--- NOTE | 2021-12-10 07:43 | ED.PSYCH ---
HPI - Psych General Chief Complaint: General Medical Stated Complaint: NOT TAKING MEDS,HERE T-1 W/SAME PER EMS Time Seen by Provider: 12/10/21 07:42 Source: patient, EMS and old records reviewed Mode of arrival: EMS Limitations: altered mental status (dementia) History of Present Illness MD complaint: other (dementia refusing to take her medications) Onset (ago): month(s) Duration: intermittent History of same: Yes Relieving factors: none Exacerbating factors: none Context: other (episodes of agitation with her dementia) Associated psychiatric symptoms: none Associated symptoms: denies other symptoms Treatments prior to arrival: none Related Data Home Medications Medication Instructions Recorded Confirmed famotidine 20 mg tablet 20 mg PO BEDTIME 03/21/21 12/05/21 allopurinol 100 mg tablet 100 mg PO DAILY Gout 05/30/21 12/05/21 rosuvastatin 10 mg tablet 10 mg PO DAILY 10/11/21 12/05/21 bisacodyl 10 mg rectal suppository 10 mg [place] DAILY PRN Constipation 10/17/21 12/05/21 calcitriol 0.25 mcg capsule 0.25 mcg PO Q48H 11/01/21 12/05/21 metoprolol tartrate 50 mg tablet 75 mg PO BID 11/07/21 12/05/21 ergocalciferol (vitamin D2) 1,250 1 cap PO Q14D 11/25/21 12/05/21 mcg (50,000 unit) capsule Previous Rx's Medication Instructions Recorded apixaban 2.5 mg tablet (Eliquis) 2.5 mg PO BID 90 days #180 tabs 02/21/21 amlodipine 5 mg tablet 5 mg PO DAILY 90 days #90 tabs 06/09/21 thiamine HCl (vitamin B1) 100 mg 50 mg PO DAILY 90 days #45 tabs 08/09/21 tablet quetiapine 25 mg tablet 12.5 mg PO DAILY PRN psychotic 11/01/21 #90 tabs Allergies Allergy/AdvReac Type Severity Reaction Status Date / Time NSAIDS (Non-Steroidal AdvReac Severe CONTRAINDICATED Verified 12/05/21 09:03 Anti-Inflamma DUE TO [NSAIDS (NON-STEROIDAL ANEMIA ANTI-INFLAMMA] atorvastatin [From LIPITOR] AdvReac Intermediate MUSCLE PAIN Verified 12/05/21 09:03 Review of Systems Review of Systems: ROS unable to be obtained due to altered mental status PMFSH Past Medical History Attestation statement: The following information was validated with the patient. Medical History Acute renal failure superimposed on stage 4 chronic kidney disease Aortic valve sclerosis Asthma CKD (chronic kidney disease) stage 4, GFR 15-29 ml/min Colon cancer Dementia with behavioral disturbance Essential hypertension GERD (gastroesophageal reflux disease) Gout Persistent atrial fibrillation Psychotic affective disorder Pure hypercholesterolemia Surgical History History of bilateral cataract extraction History of laparoscopy Family History Family History Father No problems noted. Mother No problems noted. Social History Social History Household Members: Spouse Housing: Apartment Unable to assess alcohol history related to: Unknown Alcohol intake: never Patient Tobacco Use Status: Former Tobacco user e-Cigarette/Vaping Use: Never Used Second Hand Smoke Exposure: Yes Advance Directives: Yes Advance Directives on File: Yes Advance Directives Date on File: 10/11/21 service: No Current occupational status: retired and disabled Cognitive needs: Yes Hearing needs: No Vision needs: Yes Physical Exam Vital Signs: Vital Signs: Last Vital Signs Temp 97.9 F 12/10/21 07:47 Pulse 90 12/10/21 07:47 Resp 16 12/10/21 07:47 BP 113/67 12/10/21 07:47 Pulse Ox 97 12/10/21 07:47 O2 Del Method 12/10/21 07:47 BMI result Body Mass Index 16.7 Appearance: Alert. Not speaking, calm this AM. No acute distress. Eyes: Pupils equal, round and reactive to light. ENT: Pharynx normal. Atraumatic Neck: Normal inspection. Neck supple. CVS: irregular heart rate and rhythm. Pulses normal. Respiratory: No respiratory distress. Breath sounds normal. Abdomen: Soft and does not grimace Skin: Skin warm and dry. Normal skin color. Normal skin turgor. Extremities: No lower extremity edema. Neuro: Will not participate in exam. Course Course Course Narrative: patient did in fact take her meds for EMS but is asking that patinet go somewhere for a little while that he needs a break Patient placed in physician observation at 8am. The indication for observation is that the patient needs more time for CM to aid in placement, the patient had CBC and chemistry that was at baseline yesterday will order COVID and UA now. At this time the patient is at her baseline in NAD. MDM - Psych MDM Narrative Medical decision making narrative: 71 yo female hx of PAF on eliquis, HTN, gout, CKD, dementia with recurrent bouts of behavioral issues and not wanting to take her medications - not at bedside at this time but is reportedly going to be her in a little bit. I am not sure what medications she did not receive this AM and she cannot tell me. Patient just seen for the same thing yesterday and sent home after taking her medications. Discharge Plan Discharge Clinical Impression: Dementia Qualifiers: Dementia type: unspecified type Dementia behavioral disturbance: with behavioral disturbance Qualified Code(s): F03.91 - Unspecified dementia with behavioral disturbance Patient Disposition: Still a Patient Prescriptions: No Action amlodipine 5 mg tablet 5 mg PO DAILY 90 Days Qty: 90 3RF thiamine HCl (vitamin B1) 100 mg tablet 50 mg PO DAILY 90 Days Qty: 45 1RF famotidine 20 mg tablet 20 mg PO BEDTIME rosuvastatin 10 mg tablet 10 mg PO DAILY bisacodyl 10 mg Suppository 10 mg [place] DAILY PRN (Reason: Constipation) metoprolol tartrate 50 mg tablet 75 mg PO BID Protocol: Hold for SBP/HR < HOLD for SBP < : 90 HOLD for HR < : 60 ergocalciferol (vitamin D2) 1,250 mcg (50,000 unit) capsule 1 cap PO Q14D allopurinol 100 mg tablet 100 mg PO DAILY calcitriol 0.25 mcg capsule 0.25 mcg PO Q48H quetiapine 25 mg tablet 12.5 mg PO DAILY PRN (Reason: psychotic ) Qty: 90 0RF Eliquis 2.5 mg tablet 2.5 mg PO BID 90 Days Qty: 180 4RF
[2021-12-10 07:47] VITALS: BP 113/67; BP 118/70; PULSE 88; PULSE 90; RESP 16; TEMP 36.6; O2SAT 100; O2SAT 97; BMI 16.7
[2021-12-10 08:55] LABS: COVID-19 Test Negative (Negative)
--- NOTE | 2021-12-10 09:20 | MHC.CM.ED ---
Addendum entered by Vesta Huntley 12/10/21 15:53: [facility] does not have a bed today. But might have a bed tomorrow. [facility] can offer a bed on 12/11. Original Note: Received case management consult from Dr Khan. Patient was sent to the ER by her for not taking her medication. Patient took her medication for EMS. But still wanted patient brought to the ER because I need a break. Patient and are well known to case management. Patient has advanced dementia. Patient is active with [facility]. HCP verified to be on file. PCP is Dr Pola Pabon. Patient received 3 Pfizer vaccines and had Covid in October 2021. Patient's , Tana, is requesting [facility] placement in a facility under 50 miles, so he can get respite due to caregiver fatigue. Patient will need a locked dementia unit because she is an elopement risk. Referral broadcasted within 50 miles of patient's home, to all facilities that have locked dementia units. Continue to monitor for d/c needs.
--- NOTE | 2021-12-10 13:01 | PHA.MEDREC ---
Pharmacy Consult ? Medication Reconciliation Pharmacy has completed the medication reconciliation. Patient's cofirmed medications. No remarkable issues. Martha Espana, PharmD
[2021-12-10] MEDS: QUEtiapine Fumarate 25 MG TABLET 12.5 MG PO (16:24)
--- NOTE | 2021-12-10 16:57 | MHC.CM.ED ---
Addendum entered by Yen King 12/10/21 17:08: Pt was recently in the ED 11/25-12/02 awaiting longterm care per . No bed offers within 100 miles. refused to have go any farther, so he took the patient home. Original Note: CM met with patient's /HCP, Tana Nieves ([phone]). Reviewed possible bed offers for longterm care at [facility] and [facility] in [place] for 12/11. is concerned about travelling. CM has had this conversation with with patient's last admission, regarding need to accept a bed offer when it comes, especially if no local facilities offer a bed. was also asking about how long she would go to longterm care- he was hoping for 6 weeks. CM explained that normally the stay is 2 weeks. CM again had the conversation with about considering LTC for his with advanced dementia. Reviewed with him the process of dementia and that it only gets worse. is very concerned that he cannot live without her SSI check. CM again explained to that that was something that he needed to review, as it is difficult for his to be moved from the ED, to facility and then back home. Pt has an appointment with neurology on 12/31. Enc pt to keep that appointment, as he can speak with the doctor about worsening dementia and prognosis. Pt has [facility] for 2 hours every other week and a visiting nurse through [facility] weekly. Enc pt to call [facility] to have a review for more services at home. aware that CM will call him tomorrow regarding bed offers. Pt is very confused. Wandering in the ED and attempting to elope. Pt eventually returned to bed with staff. CM will follow for d/c needs.
[2021-12-10 20:00] VITALS: BP 147/55; PULSE 112; RESP 15; O2SAT 99
--- NOTE | 2021-12-10 20:00 | PC.NURSE ---
Patient began attempting to run out of her room and not listen to staff attempting to redirect her. Patient attempting to hit and kick staff. Patient ordered medication restraint. Patient given haldol 5 mg IM and ativan 2 mg IM.
[2021-12-10] MEDS: Haloperidol Lactate 5 MG/ML VIAL IM (20:05)
[2021-12-10] MEDS: LORazepam 2 MG/ML VIAL IM (20:05)
[2021-12-10 21:52] VITALS: BP 109/86; PULSE 110
[2021-12-11 02:18] VITALS: RESP 20
[2021-12-11 05:38] VITALS: RESP 17
[2021-12-11 06:00] VITALS: BP 102/96; PULSE 100; RESP 15
--- NOTE | 2021-12-11 10:40 | PC.NURSE ---
9 am meds not given yet as family is requesting to hold on for now. pt was medicated last night for agitation and she continues to be sleepy but stable. will give meds once she is awake . Darlyn AGUIRRE aware
--- NOTE | 2021-12-11 11:40 | MHC.CM.ED ---
Addendum entered by Vesta Huntley 12/11/21 12:09: Discharge tenatively scheduled for 12/12 at noon. BLS booked. [facility] with chart. [facility] liaison, Desiree, can be reached via telephone at [phone] with any questions/concerns. Original Note: Patient remains in ER. [facility] does not have a female bed. [facility] is able to offer a bed. Met with patient's , Tana. Explained patient would either need to go to facility in [place] or go home. [facility] is accepting bed at this time. MDS completed and faxed to [facility]. Patient will need a level 2. [facility] is in the process of obtaining this. Anticipate patient will transfer to [facility] via [facility] on 12/12. Continueu to monitor for d/c needs.
[2021-12-11] MEDS: Metoprolol Tartrate 25 MG TABLET 75 MG PO ×2 (12:55→21:34)
[2021-12-11] MEDS: Thiamine HCL 100 MG TABLET 50 MG PO (12:55)
[2021-12-11] MEDS: amLODIPine Besylate 5 MG TABLET PO (12:55)
[2021-12-11] MEDS: allopurinoL 100 MG TABLET PO (12:55)
[2021-12-11] MEDS: Apixaban 2.5 MG TABLET PO ×2 (12:55→21:34)
[2021-12-11 13:04] VITALS: BP 150/83; PULSE 115; RESP 17; TEMP 36.1; O2SAT 97
[2021-12-11] MEDS: QUEtiapine Fumarate 25 MG TABLET 12.5 MG PO (14:11)
[2021-12-11 15:36] VITALS: BP 126/65; PULSE 82; RESP 16; TEMP 37.2; O2SAT 97
[2021-12-11] MEDS: OLANZapine 2.5 MG TABLET PO (16:35)
--- NOTE | 2021-12-11 16:37 | PC.NURSE ---
pt restless for the past 2 -3 hours, camera on pt. medicated for agitation. DId ambulate with 2 assist to the bathroom and did well. Incon most of the day, urine sample not taken due to incontience
--- NOTE | 2021-12-11 19:45 | PC.NURSE ---
Patient started to and was difficult to redirect. PA aware and prescribed oral medication for patient's comfort.
[2021-12-11 19:48] VITALS: BP 109/66; PULSE 61; RESP 16; TEMP 36.8; O2SAT 97
[2021-12-11] MEDS: diphenhydrAMINE HCL 25 MG TABLET PO (19:51)
[2021-12-11] MEDS: HaloperidoL 5 MG TABLET PO (19:51)
[2021-12-11] MEDS: Famotidine 20 MG TABLET PO (21:34)
[2021-12-12 07:23] VITALS: BP 96/69; PULSE 99; RESP 16; TEMP 36.2; O2SAT 94
[2021-12-12] MEDS: Thiamine HCL 100 MG TABLET 50 MG PO (07:41)
[2021-12-12] MEDS: amLODIPine Besylate 5 MG TABLET PO (07:41)
[2021-12-12] MEDS: Metoprolol Tartrate 25 MG TABLET 75 MG PO (07:41)
[2021-12-12] MEDS: Apixaban 2.5 MG TABLET PO (07:42)
[2021-12-12] MEDS: allopurinoL 100 MG TABLET PO (08:50)
--- NOTE | 2021-12-12 11:14 | PC.NURSE ---
pt's daughter cami mcdonald ) called [facility] and was updated on pt status. daughter states that pt fell about 2 wks ago this past thursday and she was [place] [facility] [place]. pt had also c/o of l eye haziness and was seen by an eye md. daughter also states that pt has increase insominia.
--- NOTE | 2021-12-12 11:27 | MHC.CM.PN ---
PATIENT IS DC TO [facility] TODAY ORIGINAL TIME WAS 1200 TRANSPORT. 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
== END 2021-12-12 12:16 | disposition still patient (30) ==
PROVIDERS: Emergency Provider Emergency Medicine; PCP Internal Medicine
DX: F03.91 Unspecified dementia, unspecified severity, with behavioral disturbance (principal); Z20.822 Contact with and (suspected) exposure to COVID-19; I12.9 Hypertensive chronic kidney disease with stage 1 through stage 4 chronic kidney disease, or unspecified chronic kidney disease; N18.4 Chronic kidney disease, stage 4 (severe); E78.00 Pure hypercholesterolemia, unspecified; Z91.14 Patient's other noncompliance with medication regimen
CPT/HCPCS: 87635; 96372; 99284; 99285; J2060; Q0163

== ENCOUNTER 2021-12-31 09:30 | Emergency (ER) | payer MEDICARE, MEDICAID, SELFPAY ==
[2021-12-31] VITALS (7 sets, daily range): BP systolic 109–129; BP diastolic 54–93; PULSE 93–116; RESP 16–21; TEMP 36.3–36.7; O2SAT 94–100; BMI 15.7
--- NOTE | ~2021-12-31 | CT_ITS ---
EXAMINATION: CT OF THE HEAD WITHOUT CONTRAST CT OF THE CERVICAL SPINE WITHOUT CONTRAST CLINICAL INFORMATION: Patient status post fall.. COMPARISON: CT scan of the head dated 6 11/25/2021 and 10/18/2021 and 04/18/2019. CT scan of the cervical spine dated 04/18/2019. TECHNIQUE: Contiguous axial imaging was performed from the skullbase to vertex without intravenous administration of contrast. Coronal reformations of the head were obtained. Contiguous axial imaging was then performed from the skull base down to the thoracic inlet. Coronal and sagittal reformations of the cervical spine were obtained. This CT examination was performed using dose optimization techniques as appropriate, variously including the following: *Automated exposure control *Adjustment of mA and/or kV according to patient size (this includes techniques or standardized protocols for targeted exams where dose is matched to indication/reason for exam; i.e. extremities or head) *Use of iterative reconstruction technique DLP: 1433.89 mGy-cm. FINDINGS: CT scan of the head: Again seen is a large area of encephalomalacia and gliosis in the distribution of the right MCA affecting the right frontal and parietal and temporal lobes and right insular cortex, similar to the prior exam. Evaluation is limited on the current study due to motion artifact and obliquity. There is no evidence of acute intracranial hemorrhage or territorial infarction. No abnormal mass-effect or midline shift is seen. No extra-axial fluid collections are identified. The ventricles and sulci are enlarged, similar to the previous exam. There is prominent periventricular and deep white matter low-attenuation seen, consistent with ischemic small vessel disease. Small lacunar infarction in the left basal ganglia noted. The previously seen complex subcutaneous left frontal collection has resolved with only a small focal ovoid density remaining, likely a small residual hematoma. Atherosclerotic calcifications of the carotid siphons noted. The osseous structures are normal. The patient is status post bilateral ocular lens extractions. The mastoid air cells and visualized portions of the paranasal sinuses are well-aerated. CT scan of the cervical spine: Straightening of the cervical spine is seen, likely due to patient positioning. There is grade 1 anterolisthesis of C3 on C4 and grade 1 retrolisthesis of C4 on C5, similar to the previous exam. There is severe degenerative disc disease at C4-C5 and C5-C6 and moderate degenerative disc disease at C3-C4, similar to the previous exam. Small posterior disc osteophyte complexes are seen projecting into the thecal sac at C4-C5, C5-C6 and T1-T2, similar to the previous exam. There is fusion of the left C2-C3 facet joint and mild diffuse facet arthropathy on the left side. On the right side, there is fusion of the C3-C4 facet joint and diffuse facet arthropathy at the remaining lumbar levels. No evidence of acute fracture or dislocation. Craniocervical junction and atlantoaxial articulations are intact. Prevertebral soft tissues are normal in thickness. There is prominent enlargement of the thyroid gland, especially the left lobe. Substernal extension and innumerable ill-defined nodular densities and coarse calcific densities seen, similar to the previous exam and not well evaluated on noncontrast CT. The enlarged left lobe of the thyroid gland causes slight shift of the trachea to the right side of midline and splaying of the great vessels in the upper chest. Prominent atherosclerotic calcifications of the carotid vessels seen. The included soft tissues of the lung apices are unremarkable. CT/CT cervical spine wo con IMPRESSION: CT scan of the head: -No acute intracranial pathology, though evaluation is limited by motion artifact and extensive underlying chronic abnormalities. -Findings of old right MCA distribution infarct and small left basal ganglia infarct and extensive ischemic small vessel disease again noted. -Involution of previously seen large left frontal subcutaneous collection with only a small focal ovoid subcutaneous left paramedian frontal collection remaining. CT scan of the cervical spine: -No evidence of cervical spine fracture or malalignment. -Diffuse moderate to severe degenerative disc disease and facet arthropathy in the cervical spine, similar to the previous exam. -Markedly enlarged nodular left lobe of the thyroid gland is again seen with substernal extension, similar to prior studies. This can be further evaluated with thyroid ultrasound in the nonemergent setting.
--- NOTE | ~2021-12-31 | XR_ITS ---
EXAMINATION: XR HAND, LEFT CLINICAL INFORMATION: Pain after falling. Bruising left hand COMPARISON: None TECHNIQUE: PA, lateral, and oblique views of the left hand. FINDINGS: No fracture, dislocation or destructive process. XR/XR hand LT 2V IMPRESSION: Unremarkable study.
--- NOTE | ~2021-12-31 | XR_ITS ---
EXAMINATION: XR CHEST CLINICAL INFORMATION: Increasing lethargy COMPARISON: 11/07/2021 TECHNIQUE: 2 views of the chest were obtained. FINDINGS: Moderate cardiomegaly with normal caliber pulmonary vessels. Lungs grossly clear. Right-sided port stable in position. XR/XR chest 2V IMPRESSION: No active disease.
--- NOTE | 2021-12-31 09:55 | ECG_ITS ---
Test Reason : INCREASES LETHARY Blood Pressure : / mmHG Vent. Rate : 121 BPM Atrial Rate : 312 BPM P-R Int : 000 ms QRS Dur : 080 ms QT Int : 328 ms P-R-T Axes : 000 089 -20 degrees QTc Int : 465 ms Atrial fibrillation Abnormal QRS-T angle, consider primary T wave abnormality Abnormal ECG When compared with ECG of 25-NOV-2021 13:59, No significant changes seen Referred By: Veronica Meza Electronically Signed By:Puneet Boucher
[2021-12-31 10:38] LABS: MANUAL DIFF FLAG NO
[2021-12-31 10:39] LABS: Basophils Absolute Auto 0.1 X10*3/uL (0.0-0.2); Basophils Percent Auto 0.6 % (0-2); Eosinophils Absolute Auto 0.6 X10*3/uL (0.0-0.4); Eosinophils Percent Auto 6.3 % (0-4); Hematocrit 40.1 % (37.0-47.0); Hemoglobin 13.3 g/dl (12.0-16.0); Imm Gran Abs Auto 0.04 X10*3/uL (0.00-0.03); Imm Gran Pct Auto 0.4 % (0.0-0.4); Lymphocytes Absolute Auto 1.6 X10*3/uL (1.2-4.9); Lymphocytes Percent Auto 15.9 % (20-40); Mean Corpuscular HGB Conc 33.2 g/dl (31.0-35.0); Mean Corpuscular Hemoglobin 30.7 pg (27.0-33.0); Mean Corpuscular Volume 92.6 fL (80.0-98.0); Mean Platelet Volume 11.4 fL (9.4-12.3); Monocytes Absolute Auto 1.1 X10*3/uL (0.1-1.2); Monocytes Percent Auto 10.9 % (2-11); Neutrophils Absolute Auto 6.7 x10*3/uL (2.0-8.3); Neutrophils Percent Auto 65.9 % (45-73); Platelet Count 330 X10*3/uL (160-400); Red Blood Count 4.33 X10*6/uL (4.20-5.50); Red Cell Distribution Width 13.4 % (11.0-16.0); White Blood Count 10.2 X10*3/uL (4.8-10.8)
[2021-12-31 11:00] LABS: Troponin-I High Sensitivity 5.1 ng/L (<3.5-17.0)
--- NOTE | 2021-12-31 12:24 | ED.GENADULT ---
HPI - General Adult General Chief complaint: General Medical Stated complaint: unable to ambulate, weakness Time Seen by Provider: 12/31/21 09:49 Source: patient, family ( at bedside) and EMS Mode of arrival: EMS Limitations: other (Patient with history of dementia at baseline per ) History of Present Illness HPI narrative: 71-year-old female with a past medical history of dementia, CKD, hypertension, hyperlipidemia, atrial fibrillation currently on Eliquis and gout presenting to the ED via EMS with her at bedside with her reporting that increased weakness since he took his out of the [place] [facility] unit approximately 5 days ago despite not giving the patient her Quetiapine. He reports that he did not like the facility that she was that due to they were medicating her too much and every time he went to visit the patient she could not even open her eyes and she was completely out of it per her at bedside and he did not feel comfortable with this. He reports that when she got home a few days ago due to not giving her medication she has been more awake and she did tried to get up and walk and she fell backwards hitting her head and her left arm. reports she did not lose consciousness and there was no prolonged down time and he did not have her evaluated. He reports that he would like her to go to another facility although closer to home and he believes that she does not have to be on a locked unit any longer due to she does not actually walk. He reports that she has been taking all her other medications as previously prescribed and she took all her blood pressure medications this morning. He reports that she has not had any fevers, and she has not complained of any dizziness, headaches, chest pain or shortness of breath, cough, nausea/vomiting/diarrhea constipation, abdominal pain, rashes or any urinary symptoms or any other symptoms complaints or concerns at this time. complaint: Increased weakness/fall Onset (ago): day(s) (5) Related Data Home Medications Medication Instructions Recorded Confirmed famotidine 20 mg tablet 20 mg PO BEDTIME 03/21/21 12/10/21 allopurinol 100 mg tablet 100 mg PO DAILY Gout 05/30/21 12/10/21 rosuvastatin 10 mg tablet 10 mg PO DAILY 10/11/21 12/10/21 bisacodyl 10 mg rectal suppository 10 mg [place] DAILY PRN Constipation 10/17/21 12/10/21 calcitriol 0.25 mcg capsule 0.25 mcg PO Q48H 11/01/21 12/10/21 metoprolol tartrate 50 mg tablet 75 mg PO BID 11/07/21 12/10/21 Previous Rx's Medication Instructions Recorded apixaban 2.5 mg tablet (Eliquis) 2.5 mg PO BID 90 days #180 tabs 02/21/21 amlodipine 5 mg tablet 5 mg PO DAILY 90 days #90 tabs 06/09/21 thiamine HCl (vitamin B1) 100 mg 50 mg PO DAILY 90 days #45 tabs 08/09/21 tablet quetiapine 25 mg tablet 12.5 mg PO DAILY PRN psychotic 11/01/21 #90 tabs Allergies Allergy/AdvReac Type Severity Reaction Status Date / Time NSAIDS (Non-Steroidal AdvReac Severe CONTRAINDICATED Verified 12/05/21 09:03 Anti-Inflamma DUE TO [NSAIDS (NON-STEROIDAL ANEMIA ANTI-INFLAMMA] atorvastatin [From LIPITOR] AdvReac Intermediate MUSCLE PAIN Verified 12/05/21 09:03 Review of Systems Review of Systems: Constitutional : No Weight loss, No Fever, No Chills, No Night Sweats, No Fatigue, No Malaise ENT/Mouth : No Hearing loss, No Ear Pain, No Nasal Congestion, No Sinus Pain, No Hoarseness, No sore throat, No Rhinorrhea, No Swallowing Difficulty Eyes: No Eye Pain, No Swelling, No Redness, No Foreign Body, No Discharge, No Vision Changes Cardiovascular : No Chest Pain, No SOB, No Dyspnea on Exertion, No Orthopnea, No Edema, No Palpitations Respiratory : No Cough, No Sputum, No Wheezing, No Smoke Exposure, No Dyspnea Gastrointestinal : No Nausea, No Vomiting, No Diarrhea, No Constipation, No abdominal Pain, No Hematochezia, No Melena Genitourinary : no irregular bleeding, No Dysuria, No Urinary Frequency, No Hematuria, No Urinary Incontinence, No Urgency, No Flank Pain, No Urinary Flow Changes, No Hesitancy Musculoskeletal : No joint pain, No Myalgias, No Joint Swelling Skin : No Skin Lesions, No rash Neuro : + general weakness/fall, No Numbness, No Paresthesias, No Loss of Consciousness, No Dizziness, No Headache Psych : No Anxiety/Panic, No Depression, No SI/HI/AH/VH, No Social Issues, Heme/Lymph: No Bruising, No Bleeding,No Lymphadenopathy Endocrine : No Polyuria, No Polydipsia, No Temperature Intolerance Yes all other systems are reviewed and are negative [facility] Past Medical History Attestation statement: The following information was validated with the patient. Source: old records reviewed, obtained from family and nursing notes reviewed Medical History Acute renal failure superimposed on stage 4 chronic kidney disease Aortic valve sclerosis Asthma Bruise of face CKD (chronic kidney disease) CKD (chronic kidney disease) stage 4, GFR 15-29 ml/min Colon cancer Dementia Dementia with behavioral disturbance Essential hypertension Essential hypertension GERD (gastroesophageal reflux disease) Gout Hypokalemia Persistent atrial fibrillation Psychotic affective disorder Pure hypercholesterolemia Surgical History History of bilateral cataract extraction History of laparoscopy Family History Family History Father No problems noted. Mother No problems noted. Social History Social History Household Members: Spouse Housing: Apartment Unable to assess alcohol history related to: Unknown Alcohol intake: unknown Patient Tobacco Use Status: Former Tobacco user e-Cigarette/Vaping Use: Never Used Second Hand Smoke Exposure: Yes Advance Directives: Yes Advance Directives on File: Yes Advance Directives Date on File: 10/11/21 service: No Current occupational status: retired and disabled Cognitive needs: Yes Hearing needs: No Vision needs: Yes Physical Exam ED Vital Signs: Vital Signs - 24 hr 12/31/21 09:40 12/31/21 17:07 12/31/21 17:52 Temperature 98.1 F Pulse Rate 93 114 H Respiratory Rate 18 16 Blood Pressure 116/63 109/54 L 121/89 Pulse Oximetry 95 97 Oxygen Delivery Method Room Air Room Air BMI result Body Mass Index 15.7 vital signs have been reviewed as normal and appeared to be correct. Blood pressure normal. Heart rate normal. Respiration rate normal. Temperature normal. Oxygen saturation normal. Appearance: Alert although demented and pleasantly confused at baseline per . No signs of trauma. No acute distress. Head: Normal external exam. Normocephalic. Atraumatic. No Boothe signs noted. No raccoon eyes noted Eyes: PERRLA. EOMI. Conjunctiva and sclera normal. Eyelids normal. ENT: EAC normal. TM's Normal. No septal hematoma noted. No hemotympanum noted. Pharynx normal. Uvula midline. Moist mucous membranes. No lesions/ulcerations or masses noted on the tongue. Normal voice. No trismus noted. No drooling noted. No muffled voice noted. Neck: Normal inspection. Neck supple. FROM. No adenopathy. Thyroid Normal. No tracheal deviation noted. No crepitus is noted. No meningeal signs. No neck mass noted. No signs of trauma noted. CVS: Normal heart rate and rhythm. Heart sound normal. Pulses normal throughout. No murmurs/rales/gallops. Respiratory: No respiratory distress. Painless inspiration. Breath sounds normal. No wheezes/rales/rhonchi noted. Chest nontender. No crepitus is noted. No signs of trauma noted. No accessory muscle usage noted or decreased air movement noted. No signs of trauma. Abdomen: Soft and nontender. Bowel sounds normal in all 4 quadrants. No distention noted. No organomegaly noted. No visible injury noted. Back: No CVA tenderness. Full range of motion noted. Nontender. No signs of trauma. Patient neuro intact bilaterally and distally on all 4 extremities. Patient's reflexes intact bilaterally and distally on all 4 extremities. No rashes/lesion/induration/fluctuance or signs of infection noted. Skin: Skin warm and dry. Normal skin color. Normal skin turgor. No rashes/lesions/lacerations noted. Extremities: No lower extremity edema. No calf tenderness is noted. Left hand MCP patient has moderate soft tissue swelling with ecchymosis and tenderness palpation. No obvious ligamentous or tendon injury noted to the left hand/digits/wrist joint she has full range of motion. No signs of infection. No streaking/induration/fluctuance or foreign bodies noted. Otherwise all other Extremities exhibit normal range of motion and nontender. Neuro: Alert and demented at baseline pleasantly confused.. No motor deficit. No sensory deficit. Reflexes normal. No focal neuro deficits noted. CN's II-XII intact bilaterally? Vascular: + radial pulses/+ 2 distal pedal pulses/+2 dorsalis pedis b/l. Normal cap refill. No cyanosis noted to upper extremity nails and lower extremity toes nails. Course Course Course Narrative: 10am - 71-year-old female c PMHX of dementia, CKD, hypertension, hyperlipidemia, atrial fibrillation currently on Eliquis and gout presenting to the ED via EMS with her at bedside with her reporting that increased weakness since he took his out of the [place] [facility] unit approximately 5 days ago despite not giving the patient her Quetiapine with a recent fall with head injury no LOC with left hand injury as well. Requesting her to go to a new facility that is closer to his home. Plan: Will obtain labs, CT scan of brain/cervical spine, left hand x-ray, EKG, chest x-ray, left hand x-ray, UA and re-evaluate. Reevaluation(s) Reevaluation #1: - labs still pending - patient with UTI will start on antibiotic. Time: 13:46 Reevaluation #2: - labs hemolyzed approximately 3-4 times and then the patient's refused phlebotomy to obtain the patient's lab and one of our techs he wanted us to to access the poor and I explained to him that we would not access the port due to increased risk of infection and he understands this therefore he allowed the PCT to obtain the patient's blood. - labs return at this time who moves in BUN and creatinine at 26/1.52 although similar compared to prior and improved. - patient had a troponin of 5.1- delta at 4.8. - patient's AST/ALT/alkaline phosphate 49/85/249. This is increased when compared to 11/25/2021 although patient denies any abdominal pain abdomen is soft and nontender. - albumin 3.4. - patient does have a UTI therefore patient will be placed on antibiotics for UTI. Patient negative for all drugs. - patient was given IV metoprolol due to atrial fibrillation which has improved and now rate controlled. - left hand x-ray negative for any acute processes. - CT scan of head and neck revealed chronic changes no acute processes noted. - chest x-ray revealed chronic changes no acute processes noted. - therefore at this time patient was placed in Physician observation because the patient needed more time to be evaluated by physical therapy for possible placement with case management. The senior case manager did discuss this with the at this time that the patient should possibly be and long-term rehab and wants to send the patient to a closer home only for short-term period of time which is not recommended at this time. Will continue to monitor. - patient will also be given 5 mg additional of IV metoprolol due to her heart rate jumped from 80-120 and then goes back to 80 will also give her p.o. 50 mg she is being followed by cardiology here. Sign-out to Delisa to monitor the patient's heart rate/blood pressure. Time: 17:33 Medical Decision Making Medical Records Medical records reviewed: Yes I reviewed the patient's medical records. Lab Data Lab results reviewed: Yes I reviewed the patient's lab results. Result diagrams: 12/31/21 10:32 12/31/21 16:49 Labs: Lab Results 12/31/21 12/31/21 12/31/21 Range/Units 10:32 10:32 12:36 WBC 10.2 (4.8-10.8) X10*3/uL RBC 4.33 (4.20-5.50) X10*6/uL Hgb 13.3 (12.0-16.0) g/dl Hct 40.1 (37.0-47.0) % MCV 92.6 (80.0-98.0) fL MCH 30.7 (27.0-33.0) pg MCHC 33.2 (31.0-35.0) g/dl RDW 13.4 (11.0-16.0) % Plt Count 330 D (160-400) X10*3/uL MPV 11.4 (9.4-12.3) fL Immature Gran % (Auto) 0.4 (0.0-0.4) % Neut % (Auto) 65.9 (45-73) % Lymph % (Auto) 15.9 L (20-40) % Jennings % (Auto) 10.9 (2-11) % Eos % (Auto) 6.3 H (0-4) % Baso % (Auto) 0.6 (0-2) % Lymph # (Auto) 1.6 (1.2-4.9) X10*3/uL Jennings # (Auto) 1.1 (0.1-1.2) X10*3/uL Eos # (Auto) 0.6 H (0.0-0.4) X10*3/uL Baso # (Auto) 0.1 (0.0-0.2) X10*3/uL Abs Immat Gran (auto) 0.04 H (0.00-0.03) X10*3/uL Absolute Neuts (auto) 6.7 (2.0-8.3) x10*3/uL Absolute Nucleated RBC 0.000 (0.0-0.012) X10*3/uL Nucleated RBC % (auto) 0.0 (0.0-0.2) /100WBC Sodium (135-145) mmol/L Potassium (3.3-5.1) mmol/L Chloride (96-108) mmol/L Carbon Dioxide (22-29) mmol/L Anion Gap (12-20) BUN (9-16) mg/dL Creatinine (0.5-1.4) mg/dL Estim Creat Clear Calc Estimated GFR Random Glucose (60-115) mg/dL Calcium (8.4-10.2) mg/dL Magnesium (1.6-2.6) mg/dL Total Bilirubin (0.0-1.0) mg/dL AST (5-31) U/L ALT (0-31) U/L Alkaline Phosphatase (39-117) U/L Troponin I High Sens 5.1 (<3.5-17.0) ng/L Total Protein (6.5-8.0) g/dL Albumin (3.5-5.0) g/dL Urine Color YELLOW Urine Appearance HAZY Urine pH 7.0 (5.0-8.0) Ur Specific [place] 1.010 (1.005-1.025) Urine Protein TRACE (NEG-TRACE) MG/DL Urine Glucose (UA) NEG (NEG) MG/DL Urine Ketones NEG (NEG) MG/DL Urine Blood NEG (NEG) Urine Nitrite POS H (NEG) Ur Leukocyte Esterase 2+ H (NEG) Urine RBC 0 (0) /HPF Urine WBC 5-9 H (0-4) /HPF Ur Squamous Epith Cells 2+ /LPF Triple Phos Crystals 4+ /LPF Urine Bacteria 4+ /LPF Urine Opiates Screen (Not Detect) Urine Fentanyl Screen (Not Detect) Ur Barbiturates Screen (Not Detect) Ur Phencyclidine Scrn (Not Detect) Ur Amphetamines Screen (Not Detect) U Benzodiazepines Scrn (Not Detect) Urine Cocaine Screen (Not Detect) U Marijuana (THC) Screen (Not Detect) 12/31/21 12/31/21 12/31/21 Range/Units 12:36 16:49 16:49 WBC (4.8-10.8) X10*3/uL RBC (4.20-5.50) X10*6/uL Hgb (12.0-16.0) g/dl Hct (37.0-47.0) % MCV (80.0-98.0) fL MCH (27.0-33.0) pg MCHC (31.0-35.0) g/dl RDW (11.0-16.0) % Plt Count (160-400) X10*3/uL MPV (9.4-12.3) fL Immature Gran % (Auto) (0.0-0.4) % Neut % (Auto) (45-73) % Lymph % (Auto) (20-40) % Jennings % (Auto) (2-11) % Eos % (Auto) (0-4) % Baso % (Auto) (0-2) % Lymph # (Auto) (1.2-4.9) X10*3/uL [place] # (Auto) (0.1-1.2) X10*3/uL Eos # (Auto) (0.0-0.4) X10*3/uL Baso # (Auto) (0.0-0.2) X10*3/uL Abs Immat Gran (auto) (0.00-0.03) X10*3/uL Absolute Neuts (auto) (2.0-8.3) x10*3/uL Absolute Nucleated RBC (0.0-0.012) X10*3/uL Nucleated RBC % (auto) (0.0-0.2) /100WBC Sodium 140 (135-145) mmol/L Potassium 4.5 (3.3-5.1) mmol/L Chloride 106 (96-108) mmol/L Carbon Dioxide 23 (22-29) mmol/L Anion Gap 16 (12-20) BUN 26 H D (9-16) mg/dL Creatinine 1.52 H (0.5-1.4) mg/dL Estim Creat Clear Calc 18.4 Estimated GFR 34 Random Glucose 108 (60-115) mg/dL Calcium 8.6 (8.4-10.2) mg/dL Magnesium 1.9 (1.6-2.6) mg/dL Total Bilirubin 0.6 (0.0-1.0) mg/dL AST 49 H D (5-31) U/L ALT 85 H (0-31) U/L Alkaline Phosphatase 249 H D (39-117) U/L Troponin I High Sens 4.8 (<3.5-17.0) ng/L Total Protein 6.6 (6.5-8.0) g/dL Albumin 3.4 L (3.5-5.0) g/dL Urine Color Urine Appearance Urine pH (5.0-8.0) Ur Specific [place] (1.005-1.025) Urine Protein (NEG-TRACE) MG/DL Urine Glucose (UA) (NEG) MG/DL Urine Ketones (NEG) MG/DL Urine Blood (NEG) Urine Nitrite (NEG) Ur Leukocyte Esterase (NEG) Urine RBC (0) /HPF Urine WBC (0-4) /HPF Ur Squamous Epith Cells /LPF Triple Phos Crystals /LPF Urine Bacteria /LPF Urine Opiates Screen Not Detected (Not Detect) Urine Fentanyl Screen Not Detected (Not Detect) Ur Barbiturates Screen Not Detected (Not Detect) Ur Phencyclidine Scrn Not Detected (Not Detect) Ur Amphetamines Screen Not Detected (Not Detect) U Benzodiazepines Scrn Not Detected (Not Detect) Urine Cocaine Screen Not Detected (Not Detect) U Marijuana (THC) Screen Not Detected (Not Detect) Imaging Data CT scan of brain/cervical spine without contrast: Attestation: I personally reviewed and interpreted this imaging study as follows: Radiologist's impression: FINDINGS: CT scan of the head: Again seen is a large area of encephalomalacia and gliosis in the distribution of the right MCA affecting the right frontal and parietal and temporal lobes and right insular cortex, similar to the prior exam. Evaluation is limited on the current study due to motion artifact and obliquity. There is no evidence of acute intracranial hemorrhage or territorial infarction. No abnormal mass-effect or midline shift is seen. No extra-axial fluid collections are identified. The ventricles and sulci are enlarged, similar to the previous exam. There is prominent periventricular and deep white matter low-attenuation seen, consistent with ischemic small vessel disease. Small lacunar infarction in the left basal ganglia noted. The previously seen complex subcutaneous left frontal collection has resolved with only a small focal ovoid density remaining, likely a small residual hematoma. Atherosclerotic calcifications of the carotid siphons noted. The osseous structures are normal. The patient is status post bilateral ocular lens extractions. The mastoid air cells and visualized portions of the paranasal sinuses are well-aerated. CT scan of the cervical spine: Straightening of the cervical spine is seen, likely due to patient positioning. There is grade 1 anterolisthesis of C3 on C4 and grade 1 retrolisthesis of C4 on C5, similar to the previous exam. There is severe degenerative disc disease at C4-C5 and C5-C6 and moderate degenerative disc disease at C3-C4, similar to the previous exam. Small posterior disc osteophyte complexes are seen projecting into the thecal sac at C4-C5, C5-C6 and T1-T2, similar to the previous exam. There is fusion of the left C2-C3 facet joint and mild diffuse facet arthropathy on the left side. On the right side, there is fusion of the C3-C4 facet joint and diffuse facet arthropathy at the remaining lumbar levels. No evidence of acute fracture or dislocation. Craniocervical junction and atlantoaxial articulations are intact. Prevertebral soft tissues are normal in thickness. There is prominent enlargement of the thyroid gland, especially the left lobe. Substernal extension and innumerable ill-defined nodular densities and coarse calcific densities seen, similar to the previous exam and not well evaluated on noncontrast CT. The enlarged left lobe of the thyroid gland causes slight shift of the trachea to the right side of midline and splaying of the great vessels in the upper chest. Prominent atherosclerotic calcifications of the carotid vessels seen. The included soft tissues of the lung apices are unremarkable. ? CT/CT head/brain wo con IMPRESSION: CT scan of the head: -No acute intracranial pathology, though evaluation is limited by motion artifact and extensive underlying chronic abnormalities. -Findings of old right MCA distribution infarct and small left basal ganglia infarct and extensive ischemic small vessel disease again noted. -Involution of previously seen large left frontal subcutaneous collection with only a small focal ovoid subcutaneous left paramedian frontal collection remaining. ? ? CT scan of the cervical spine: -No evidence of cervical spine fracture or malalignment. -Diffuse moderate to severe degenerative disc disease and facet arthropathy in the cervical spine, similar to the previous exam. -Markedly enlarged nodular left lobe of the thyroid gland is again seen with substernal extension, similar to prior studies. This can be further evaluated with thyroid ultrasound in the nonemergent setting. Chest x-ray: Attestation: I personally reviewed and interpreted this imaging study as follows: Radiologist's impression: FINDINGS: Moderate cardiomegaly with normal caliber pulmonary vessels. Lungs grossly clear. Right-sided port stable in position. XR/XR chest 2V IMPRESSION: No active disease. Left hand x-ray: Attestation: I personally reviewed and interpreted this imaging study as follows: Radiologist's impression: FINDINGS: No fracture, dislocation or destructive process.? XR/XR hand LT 2V IMPRESSION: Unremarkable study. ECG Data Attestation: I personally reviewed and interpreted this ECG as follows: Interpretation: Atrial flutter with variable AV block with ventricular rate of [address] abnormalities no acute ischemic change are noted. Similar compared to prior EKG 11/25/2021. Critical Care Time Critical Care Time Critical Care Time: Yes Total Critical Care Time: 60 Attestation: I personally attest to this time spent taking care of the patient Discharge Plan Discharge Clinical Impression: General weakness, Dementia, Fall, Traumatic ecchymosis of left hand, UTI (urinary tract infection), Atrial fibrillation Patient Disposition: Still a Patient Prescriptions: No Action amlodipine 5 mg tablet 5 mg PO DAILY 90 Days Qty: 90 3RF thiamine HCl (vitamin B1) 100 mg tablet 50 mg PO DAILY 90 Days Qty: 45 1RF famotidine 20 mg tablet 20 mg PO BEDTIME rosuvastatin 10 mg tablet 10 mg PO DAILY bisacodyl 10 mg Suppository 10 mg [place] DAILY PRN (Reason: Constipation) metoprolol tartrate 50 mg tablet 75 mg PO BID Protocol: Hold for SBP/HR < HOLD for SBP < : 90 HOLD for HR < : 60 allopurinol 100 mg tablet 100 mg PO DAILY calcitriol 0.25 mcg capsule 0.25 mcg PO Q48H quetiapine 25 mg tablet 12.5 mg PO DAILY PRN (Reason: psychotic ) Qty: 90 0RF Eliquis 2.5 mg tablet 2.5 mg PO BID 90 Days Qty: 180 4RF
[2021-12-31 12:43] LABS: Appearance Urine HAZY; Color Urine YELLOW; Glucose Urine UA NEG (NEG); Leukocyte Esterase Urine 2+ (NEG); Nitrite Urine POS (NEG); UACC Culture Trigger YES; Urine Blood NEG (NEG); Urine Ketones NEG (NEG); Urine Protein TRACE MG/DL (NEG-TRACE)
[2021-12-31 12:51] LABS: Bacteria Urine 4+ /LPF; RBC Urine 0 /HPF (0); Squamous Epithelial Cell Urine 2+ /LPF; Triple Phosphate Crystal Urine 4+ /LPF
[2021-12-31 12:58] LABS: Amphetamine Screen Urine Not Detected (Not Detect); Barbiturates, Urine Not Detected (Not Detect); Benzodiazepines Screen Urine Not Detected (Not Detect); Cannabinoid Screen Urine Not Detected (Not Detect); Cocaine Screen Urine Not Detected (Not Detect); Fentanyl, urine Not Detected (Not Detect); Opiate Screen Urine Not Detected (Not Detect); Phencyclidine Screen Urine Not Detected (Not Detect)
[2021-12-31] MEDS: Metoprolol Tartrate 5 MG/5 ML VIAL IVPUSH ×2 (13:26→18:01)
[2021-12-31] MEDS: 0.9 % Sodium Chloride 1,000 ML 999 ML IVCONT ×2 (13:27→18:29)
[2021-12-31 17:14] LABS: Troponin-I High Sensitivity 4.8 ng/L (<3.5-17.0)
[2021-12-31 17:23] LABS: Alanine Aminotransferase 85 U/L (0-31); Albumin Level 3.4 g/dL (3.5-5.0); Alkaline Phosphatase 249 U/L (39-117); Anion Gap 16 (12-20); Aspartate Amino Transferase 49 U/L (5-31); Bilirubin Total 0.6 mg/dL (0.0-1.0); Blood Urea Nitrogen 26 mg/dL (9-16); Calcium 8.6 mg/dL (8.4-10.2); Carbon Dioxide 23 mmol/L (22-29); Chloride 106 mmol/L (96-108); Creatinine Clr Calc Pharmacy 18.4; Estimated Glomerular Filt Rate 34; Glucose Random 108 mg/dL (60-115); Magnesium 1.9 mg/dL (1.6-2.6); Potassium 4.5 mmol/L (3.3-5.1); Sodium 140 mmol/L (135-145); Total Protein 6.6 g/dL (6.5-8.0)
[2021-12-31 18:41] LABS: COVID-19 Test Negative (Negative)
[2021-12-31] MEDS: Metoprolol Tartrate 50 MG TABLET PO (18:45)
--- NOTE | 2021-12-31 19:08 | MHC.CM.ED ---
CM unable to have any meaningful conversation with patient, as she has advanced dementia. Met with /HCP Tana Nieves. HCP on file. Pt was in ED at [facility] 12/10- with discharge for skilled nursing care at [facility] in [place]. Per , pt was to be discharged on 12/27, but he took her home on 12/26. States he was unhappy with care, as pt was too doped up and was sleeping all the time. States the facility had her in a recliner in the hallway and did not like that. Also was unhappy with how some careworkers treated her and others. tells CM that facility was unable to arrange ambulance transportation home with the insurance and he had to drive her home and he and a nephew had to carry her into the house. States she cannot walk and is very unsteady on her feet. States she has been lying on the couch at home. is very concerned about caring for her at home and not having much help at home. Family is unable/unwilling to provide much help for him. is also very concerned about being able to live in his apartment without her check if she goes to a half-way. CM again had a lengthy conversation with regarding the process of dementia and that he may be unable to care for her as her disease progresses. Reinforced that dementia is a progressive disease that gets worse. CM suggested to that he will need to figure out how to live when she goes to LTC. seems to understand that pt will eventually need LTC. Explained to that he may qualify for more assistance without her check . Encouraged to call Violetta at [facility] for assistance, as he has worked with her in the past and she may have some answers for him, including if medicaid will take all of her check for her care, or a percentage of her check. Pt has Violetta's telephone number on his phone. Explained that CM does not have those answers for him. Also suggested that he call Medicare/Medicaid for assistance. expresses frustration at calling those agencies, but CM reinforced to him that he needs to take care of this, so he can figure out how to live on one income. states pt does not walk now and does not think she needs a locked dementia unit. then told CM that the patient somehow got to the stairs when he went upstairs. Again, CM explained that pt will try to walk and that is why she needs a locked dementia unit. Of note, pt was walking with a steady gait without any DME on last admission in ED 12/10-12/12. Pt has No DME. Pt has weekly VNA services with Fawad and TERI from [facility]. tells CM that the meals are on hold. States he can have a RESIDENTIAL DIRECT SUPPORT PROFESSIONAL form [facility] 2 hours/week, but he needs more help. Explained that he should accept any help he can get. Again stressed that pt needs LTC at this point. very teary with this conversation. will call [facility] financial services and attempt to call Medicare/medicaid. Pt awaiting PT evaluation. Referrals will be placed locally at 's request, however he understands that referrals will need to be placed farther if no bed offers obtained. CM to follow for d/c needs.
--- NOTE | 2021-12-31 20:29 | PHA.MEDREC ---
Pharmacy Consult ? Medication Reconciliation Pharmacy has completed the medication reconciliation. Spoke to patients who was an amazing historian.
--- NOTE | 2021-12-31 20:43 | MHC.CM.ED ---
Pt was found by ED staff off the stretcher and standing. Pt assisted back to bed. Alarm applied. CM suggested a hospital bed for safety.
[2022-01-01] VITALS (9 sets, daily range): BP systolic 91–143; BP diastolic 56–82; PULSE 80–114; RESP 13–20; TEMP 36.6; O2SAT 96–99
--- NOTE | 2022-01-01 04:16 | PC.NURSE ---
Patient resting in bed, no distress noted. Heart rate ranging between 100s-116. Dr Mcduffie notified, no new orders. Will monitor.
--- NOTE | 2022-01-01 07:20 | PC.NURSE ---
Report received from Amirah AGUIRRE. Patient asleep on stretcher at this time. Changed bed linen and gown as patient saturated in urine. Patient is confused at baseline with dementia. Patient cooperative and calm at this time. Respirations regular and even. Skin PWD. Patient in afib on monitor. HR- 100-130s, provider aware. Will continue to monitor. Patient is a case management bed search, would like her to stay closer to home.
[2022-01-01] MEDS: Thiamine HCL 100 MG TABLET 50 MG PO (09:36)
[2022-01-01] MEDS: Apixaban 2.5 MG TABLET PO (09:36)
[2022-01-01] MEDS: amLODIPine Besylate 5 MG TABLET PO (09:36)
[2022-01-01] MEDS: Metoprolol Tartrate 25 MG TABLET 75 MG PO (09:36)
--- NOTE | 2022-01-01 09:41 | MHC.CM.ED ---
LTC bed search expanded to a 50 mile radius as no local facilities have made an offer. Call placed to pt's spouse/HCP Tana who verbalized concern with pt being so far. CM informed him of the PT eval for LTC d/t memory impairment and the shortage of LTC locked unit beds necessitating a farther search radius. RODGER also discussed options for caring for pt at home including additional services and/or private [employer] services however, pt states he is not able to financially supplement care at home. After much discussion and empathetic listening, Tana has agreed to extend the search radius. Referrals placed: will await offers
[2022-01-01] MEDS: allopurinoL 100 MG TABLET PO (09:53)
[2022-01-01] MEDS: Atorvastatin Calcium 40 MG TABLET PO (09:53)
--- NOTE | 2022-01-01 10:55 | PC.NURSE ---
Patient's son at bedside reporting he only wants patient placed somewhere close by. Explained to him that case management is working on this but may be a difficult process due to lack of beds in this area. Patient son reports patient needs Ensure as she does not eat enough solid food. Updated him on patient's results + for UTI, on PO antibiotics. Patient remains calm and cooperative, sleeping off and on. Changed bed linen and gown, patient will not keep purewik in place.Will continue to monitor.
--- NOTE | 2022-01-01 14:26 | MHC.CM.ED ---
Pt has been accepted ( pending PASSR 1 and [facility] approval ) to [facility]. Updated Efigenio who is receptive to transfer. Awaiting approval by [facility] at this time before transportation can be arranged.
--- NOTE | 2022-01-01 19:03 | PC.NURSE ---
[facility] [employer]ER Delisa aware of patients BP
== END 2022-01-01 19:11 | disposition skilled nursing facility (03) ==
PROVIDERS: Physician Assistant Medical; Emergency Provider Emergency Medicine
DX: S60.222A Contusion of left hand, initial encounter (principal); S09.90XA Unspecified injury of head, initial encounter; N39.0 Urinary tract infection, site not specified; F03.90 Unspecified dementia, unspecified severity, without behavioral disturbance, psychotic disturbance, mood disturbance, and anxiety; M79.642 Pain in left hand; M10.9 Gout, unspecified; I48.91 Unspecified atrial fibrillation; I10 Essential (primary) hypertension; R26.2 Difficulty in walking, not elsewhere classified; M54.2 Cervicalgia; R07.89 Other chest pain; R51.9 Headache, unspecified; I48.92 Unspecified atrial flutter; W01.0XXA Fall on same level from slipping, tripping and stumbling without subsequent striking against object, initial encounter; Y93.9 Activity, unspecified; Y92.9 Unspecified place or not applicable; Y99.9 Unspecified external cause status; Z20.822 Contact with and (suspected) exposure to COVID-19; Z79.01 Long term (current) use of anticoagulants; Z79.899 Other long term (current) drug therapy; Z87.891 Personal history of nicotine dependence; Z63.79 Other stressful life events affecting family and household
CPT/HCPCS: 36415; 70450; 71046; 72125; 73120; 80053; 80307; 81001; 83735; 84484; 85025; 87086; 87088; 87186; 87635; 93005; 96365; 96366; 96372; 96374; 96376; 99284; 99285

== ENCOUNTER 2022-02-16 05:13 | Emergency (ER) | payer MEDICARE, MEDICAID, SELFPAY ==
[2022-02-16 05:22] VITALS: BP 138/90; BP 143/65; PULSE 91; PULSE 96; RESP 18; TEMP 36.5; O2SAT 98; BMI 18.8
--- NOTE | 2022-02-16 05:58 | ECG_ITS ---
Test Reason : AFIB Blood Pressure : / mmHG Vent. Rate : 101 BPM Atrial Rate : 000 BPM P-R Int : 000 ms QRS Dur : 080 ms QT Int : 344 ms P-R-T Axes : 000 100 019 degrees QTc Int : 446 ms Atrial fibrillation with rapid ventricular response Rightward axis Anterior infarct , age undetermined Abnormal ECG When compared with ECG of 31-DEC-2021 11:49, No significant change was found Referred By: Rodo Jessica Electronically Signed By:FUAD ROSE
--- NOTE | 2022-02-16 06:00 | ED_ITS ---
HPI - General Adult General Chief complaint: Failure to Thrive Stated complaint: Dementia/Agitated Time Seen by Provider: 02/16/22 05:56 History of Present Illness HPI narrative: Patient is 71 years old with history of dementia atrial fibrillation been here multiple times for agitation was [facility] came home 2 weeks ago family unable to take care of her as she is wandering the house urinating in the trash cans wants her to go back to prison Related Data Home Medications Medication Instructions Recorded Confirmed famotidine 20 mg tablet 20 mg PO BEDTIME 03/21/21 12/31/21 allopurinol 100 mg tablet 100 mg PO DAILY Gout 05/30/21 12/31/21 rosuvastatin 10 mg tablet 10 mg PO DAILY 10/11/21 12/31/21 bisacodyl 10 mg rectal suppository 10 mg MN DAILY PRN Constipation 10/17/21 12/31/21 calcitriol 0.25 mcg capsule 0.25 mcg PO Q48H 11/01/21 12/31/21 metoprolol tartrate 50 mg tablet 75 mg PO BID 11/07/21 12/31/21 Previous Rx's Medication Instructions Recorded apixaban 2.5 mg tablet (Eliquis) 2.5 mg PO BID 90 days #180 tabs 02/21/21 amlodipine 5 mg tablet 5 mg PO DAILY 90 days #90 tabs 06/09/21 thiamine HCl (vitamin B1) 100 mg 50 mg PO DAILY 90 days #45 tabs 08/09/21 tablet quetiapine 25 mg tablet 12.5 mg PO DAILY PRN psychotic 11/01/21 #90 tabs cefuroxime axetil 500 mg tablet 500 mg PO Q12H 7 days #14 tabs 01/05/22 food supplemt, lactose-reduced 1 ea PO BID 30 days #3,792 mL 02/06/22 (Ensure oral liquid) Allergies Allergy/AdvReac Type Severity Reaction Status Date / Time NSAIDS (Non-Steroidal AdvReac Severe CONTRAINDICATED Verified 12/05/21 09:03 Anti-Inflamma DUE TO [NSAIDS (NON-STEROIDAL ANEMIA ANTI-INFLAMMA] atorvastatin [From LIPITOR] AdvReac Intermediate MUSCLE PAIN Verified 12/05/21 09:03 Review of Systems Review of Systems: Yes Unobtainable due to mental status COUNTS INCLUDE 234 BEDS AT THE [facility] Past Medical History Medical History Acute renal failure superimposed on stage 4 chronic kidney disease Aortic valve sclerosis Asthma Bruise of face CKD (chronic kidney disease) CKD (chronic kidney disease) stage 4, GFR 15-29 ml/min Colon cancer Dementia Dementia with behavioral disturbance Essential hypertension Essential hypertension GERD (gastroesophageal reflux disease) Gout Hypokalemia Persistent atrial fibrillation Psychotic affective disorder Pure hypercholesterolemia Surgical History History of bilateral cataract extraction History of laparoscopy Family History Family History Father No problems noted. Mother No problems noted. Social History Social History Household Members: Spouse Housing: Apartment Unable to assess alcohol history related to: Unknown Alcohol intake: unknown Patient Tobacco Use Status: Former Tobacco user e-Cigarette/Vaping Use: Never Used Second Hand Smoke Exposure: Yes Advance Directives: Yes Advance Directives on File: Yes Advance Directives Date on File: 10/11/21 service: No Current occupational status: retired and disabled Cognitive needs: Yes Hearing needs: No Vision needs: Yes Physical Exam ED Vital Signs: Vital Signs - 24 hr 02/16/22 05:22 Temperature 97.7 F Pulse Rate 91 Respiratory Rate 18 Blood Pressure 143/65 H Pulse Oximetry 98 Oxygen Delivery Method Room Air BMI result Body Mass Index 18.8 Appearance: Alert. And awake thin build no distress. Eyes: PERRLA, ENT: Pharynx normal. Oral Mucosa moist Neck: Normal inspection. Neck supple. CVS: Irregularly irregular heart rate, Pulses normal. Respiratory: No respiratory distress. Equal air entry bilateral, no wheezing/rales/rhonchi Abdomen: Soft and nontender. Bowel sounds are present, no mass palpable, Skin: Skin warm and dry. Normal skin color. Normal skin turgor. Extremities: No lower extremity edema. No calf tenderness Neuro: Alert and awake. No motor deficit Medical Decision Making MDM Narrative Medical decision making narrative: Patient with dementia with behavior problems will get case management consult for placement Discharge Plan Discharge Clinical Impression: Dementia, Atrial fibrillation Patient Disposition: Still a Patient Prescriptions: No Action amlodipine 5 mg tablet 5 mg PO DAILY 90 Days Qty: 90 3RF thiamine HCl (vitamin B1) 100 mg tablet 50 mg PO DAILY 90 Days Qty: 45 1RF Ensure Liquid 1 ea PO BID 30 Days Qty: 3792 6RF famotidine 20 mg tablet 20 mg PO BEDTIME cefuroxime axetil 500 mg tablet 500 mg PO Q12H 7 Days Qty: 14 0RF rosuvastatin 10 mg tablet 10 mg PO DAILY bisacodyl 10 mg Suppository 10 mg MN DAILY PRN (Reason: Constipation) metoprolol tartrate 50 mg tablet 75 mg PO BID Protocol: Hold for SBP/HR < HOLD for SBP < : 90 HOLD for HR < : 60 allopurinol 100 mg tablet 100 mg PO DAILY calcitriol 0.25 mcg capsule 0.25 mcg PO Q48H quetiapine 25 mg tablet 12.5 mg PO DAILY PRN (Reason: psychotic ) Qty: 90 0RF Eliquis 2.5 mg tablet 2.5 mg PO BID 90 Days Qty: 180 4RF
[2022-02-16 06:45] LABS: MANUAL DIFF FLAG NO
[2022-02-16 06:47] LABS: Basophils Absolute Auto 0.1 X10*3/uL (0.0-0.2); Basophils Percent Auto 0.8 % (0-2); Eosinophils Absolute Auto 0.5 X10*3/uL (0.0-0.4); Eosinophils Percent Auto 6.2 % (0-4); Hematocrit 38.2 % (37.0-47.0); Hemoglobin 12.3 g/dl (12.0-16.0); Imm Gran Abs Auto 0.02 X10*3/uL (0.00-0.03); Imm Gran Pct Auto 0.3 % (0.0-0.4); Lymphocytes Absolute Auto 1.9 X10*3/uL (1.2-4.9); Lymphocytes Percent Auto 25.9 % (20-40); Mean Corpuscular HGB Conc 32.2 g/dl (31.0-35.0); Mean Corpuscular Hemoglobin 30.2 pg (27.0-33.0); Mean Corpuscular Volume 93.9 fL (80.0-98.0); Mean Platelet Volume 11.5 fL (9.4-12.3); Monocytes Absolute Auto 0.7 X10*3/uL (0.1-1.2); Monocytes Percent Auto 9.3 % (2-11); Neutrophils Absolute Auto 4.2 x10*3/uL (2.0-8.3); Neutrophils Percent Auto 57.5 % (45-73); Platelet Count 155 X10*3/uL (160-400); Red Blood Count 4.07 X10*6/uL (4.20-5.50); White Blood Count 7.3 X10*3/uL (4.8-10.8)
[2022-02-16 07:03] LABS: COVID-19 Test Negative (Negative)
--- NOTE | 2022-02-16 10:16 | PC.NURSE ---
ambulating in plata w this rn showing steady gait. pt is redirectable, but does not want to go back to lie in bed. now in dept, sitting with pt. brought updated med list.
--- NOTE | 2022-02-16 10:29 | PC.NURSE ---
pt's is at bedside. pt/ aware of plan of care.
--- NOTE | 2022-02-16 10:59 | PHA.MEDREC ---
Pharmacy Consult ? Medication Reconciliation Pharmacy has completed the medication reconciliation. Patient at bedside with a list of patient's medications. Cross-referenced with claim history and . Reports only using strawberry flavored ensure for bowel movement. No remarkable discrepancies.
--- NOTE | 2022-02-16 11:21 | MHC.CM.PN ---
REFERRAL SENT TO [facility] WHERE PT WAS SENT FOR LTC IN DECEMBER OF THIS YEAR, TO DETERMINE IF THEY WOULD BE WILLING TO TAKE PT BACK. THEY ARE DECLINING REFERRAL DUE TO LACK OF DEMENTIA BED. REFERRAL BROADCAST 100 MILES TO CONTRACTED FACILITIES WITH DEMENTIA UNITS
[2022-02-16 11:57] LABS: Alanine Aminotransferase 24 U/L (0-31); Albumin Level 3.9 g/dL (3.5-5.0); Alkaline Phosphatase 118 U/L (39-117); Anion Gap 19 (12-20); Aspartate Amino Transferase 35 U/L (5-31); Bilirubin Total 0.9 mg/dL (0.0-1.0); Blood Urea Nitrogen 23 mg/dL (9-16); Calcium 9.5 mg/dL (8.4-10.2); Carbon Dioxide 29 mmol/L (22-29); Chloride 104 mmol/L (96-108); Creatinine Clr Calc Pharmacy 16.7; Estimated Glomerular Filt Rate 25; Glucose Random 111 mg/dL (60-115); Potassium 4.8 mmol/L (3.3-5.1); Sodium 147 mmol/L (135-145); Total Protein 7.8 g/dL (6.5-8.0)
== END 2022-02-16 12:47 | disposition home or self-care (01) ==
PROVIDERS: Physician Assistant Medical; Emergency Provider Internal Medicine
DX: F03.90 Unspecified dementia, unspecified severity, without behavioral disturbance, psychotic disturbance, mood disturbance, and anxiety (principal); I48.91 Unspecified atrial fibrillation; Z20.822 Contact with and (suspected) exposure to COVID-19; Z87.891 Personal history of nicotine dependence; Z79.899 Other long term (current) drug therapy
CPT/HCPCS: 36415; 80053; 83735; 85025; 87635; 93005; 99284

== ENCOUNTER 2022-02-19 07:03 | Emergency (ER) | payer MEDICARE, MEDICAID, SELFPAY ==
--- NOTE | 2022-02-19 07:07 | ED.PSYCH ---
HPI - Psych General Chief Complaint: General Medical Stated Complaint: DEMENTIA Time Seen by Provider: 02/19/22 07:03 Source: patient and EMS Mode of arrival: EMS Limitations: altered mental status (dementia) History of Present Illness HPI Narrative: 71 yo female well known to us hx of HTN, CKD, CAD, afib on eliquis, dementia with behavioral disturbances comes in again (just seen 02/16 and offered placement but brought her home) she again is not taking her medications, she is agitated, using trash cans as a toilet. MD complaint: other (agitation, progressing dementia) Onset (ago): month(s) Duration: intermittent and getting worse History of same: Yes Relieving factors: none Exacerbating factors: none Context: other (fluctuating behaviors) Associated psychiatric symptoms: none Associated symptoms: denies other symptoms Treatments prior to arrival: none Related Data Home Medications Medication Instructions Recorded Confirmed famotidine 20 mg tablet 20 mg PO BEDTIME 03/21/21 02/19/22 allopurinol 100 mg tablet 100 mg PO DAILY Gout 05/30/21 02/19/22 rosuvastatin 10 mg tablet 10 mg PO DAILY 10/11/21 02/19/22 calcitriol 0.25 mcg capsule 0.25 mcg PO Q48H 11/01/21 02/19/22 metoprolol tartrate 50 mg tablet 75 mg PO BID 11/07/21 02/19/22 acetaminophen 325 mg tablet 325 mg PO QID PRN Pain 02/16/22 02/19/22 Previous Rx's Medication Instructions Recorded apixaban 2.5 mg tablet (Eliquis) 2.5 mg PO BID 90 days #180 tabs 02/21/21 amlodipine 5 mg tablet 5 mg PO DAILY 90 days #90 tabs 06/09/21 thiamine HCl (vitamin B1) 100 mg 50 mg PO DAILY 90 days #45 tabs 08/09/21 tablet quetiapine 25 mg tablet 12.5 mg PO DAILY PRN psychotic 11/01/21 #90 tabs food supplemt, lactose-reduced 1 ea PO BID 30 days #3,792 mL 02/06/22 (Ensure oral liquid) Allergies Allergy/AdvReac Type Severity Reaction Status Date / Time NSAIDS (Non-Steroidal AdvReac Severe CONTRAINDICATED Verified 12/05/21 09:03 Anti-Inflamma DUE TO [NSAIDS (NON-STEROIDAL ANEMIA ANTI-INFLAMMA] atorvastatin [From LIPITOR] AdvReac Intermediate MUSCLE PAIN Verified 12/05/21 09:03 Review of Systems Review of Systems: ROS unable to be obtained due to altered mental status [facility] Past Medical History Source: old records reviewed Medical History Acute renal failure superimposed on stage 4 chronic kidney disease Aortic valve sclerosis Asthma Bruise of face CKD (chronic kidney disease) CKD (chronic kidney disease) stage 4, GFR 15-29 ml/min Colon cancer Dementia Dementia with behavioral disturbance Essential hypertension Essential hypertension GERD (gastroesophageal reflux disease) Gout Hypokalemia Persistent atrial fibrillation Psychotic affective disorder Pure hypercholesterolemia Surgical History History of bilateral cataract extraction History of laparoscopy Family History Family History Father No problems noted. Mother No problems noted. Social History Social History Household Members: Spouse Housing: Apartment Unable to assess alcohol history related to: Unknown Alcohol intake: never Patient Tobacco Use Status: Former Tobacco user e-Cigarette/Vaping Use: Never Used Second Hand Smoke Exposure: Yes Use of substances other than those prescribed or required for medical reasons: No Advance Directives: Yes Advance Directives on File: Yes Advance Directives Date on File: 10/11/21 service: No Current occupational status: retired and disabled Cognitive needs: Yes Hearing needs: No Vision needs: Yes Physical Exam Vital Signs: Vital Signs: Last Vital Signs Pulse 117 H 02/19/22 08:51 Resp 17 02/19/22 08:51 BP 131/80 02/19/22 08:51 Pulse Ox 97 02/19/22 08:51 O2 Del Method 02/19/22 08:51 BMI result Body Mass Index 23.0 Appearance: Alert. Confused, not talking. No acute distress. Eyes: Pupils equal, round and reactive to light. ENT: Pharynx normal. no signs of new trauma Neck: Normal inspection. Neck supple. CVS: irregular heart rate and rhythm. Pulses normal. Respiratory: No respiratory distress. Breath sounds normal. Abdomen: Soft and non-tender. Skin: Skin warm and dry. Normal skin color. Normal skin turgor. Extremities: No lower extremity edema. Neuro: at her baseline presentation from prior visits. No motor deficit. No sensory deficit. Course Course Course Narrative: Patient placed in physician observation at 844am. The indication for observation is that the patient needs more time for case management to again discuss with safe disposition given her behaviors. At this time the patient is at her baseline, lungs clear, CV irregular, abd nontender, neuro is at baseline. start on ceftin for UTI has no WBC count fever no vomiting patient to go to [facility] for senior living care MDM - Psych MDM Narrative Medical decision making narrative: 71 yo female well known to us hx of HTN, CKD, CAD, afib on eliquis, dementia with behavioral disturbances here with c/o not taking her medications, using the trash cans as a toilet - called 911 for placement. Will obtain labs and consult case management. Lab Data Result diagrams: 02/19/22 13:40 02/19/22 13:40 Labs: Lab Results 02/19/22 02/19/22 02/19/22 Range/Units 09:02 11:55 13:40 WBC 5.6 (4.8-10.8) X10*3/uL RBC 4.63 (4.20-5.50) X10*6/uL Hgb 13.9 (12.0-16.0) g/dl Hct 43.5 (37.0-47.0) % MCV 94.0 (80.0-98.0) fL MCH 30.0 (27.0-33.0) pg MCHC 32.0 (31.0-35.0) g/dl RDW 16.2 H (11.0-16.0) % Plt Count 175 (160-400) X10*3/uL MPV 11.6 (9.4-12.3) fL Immature Gran % (Auto) 0.2 (0.0-0.4) % Neut % (Auto) 54.2 (45-73) % Lymph % (Auto) 31.6 (20-40) % Pershing % (Auto) 8.3 (2-11) % Eos % (Auto) 4.8 H (0-4) % Baso % (Auto) 0.9 (0-2) % Lymph # (Auto) 1.8 (1.2-4.9) X10*3/uL Pershing # (Auto) 0.5 (0.1-1.2) X10*3/uL Eos # (Auto) 0.3 (0.0-0.4) X10*3/uL Baso # (Auto) 0.1 (0.0-0.2) X10*3/uL Abs Immat Gran (auto) 0.01 (0.00-0.03) X10*3/uL Absolute Neuts (auto) 3.1 (2.0-8.3) x10*3/uL Absolute Nucleated RBC 0.000 (0.0-0.012) X10*3/uL Nucleated RBC % (auto) 0.0 (0.0-0.2) /100WBC Sodium (135-145) mmol/L Potassium (3.3-5.1) mmol/L Chloride (96-108) mmol/L Carbon Dioxide (22-29) mmol/L Anion Gap (12-20) BUN (9-16) mg/dL Creatinine (0.5-1.4) mg/dL Estim Creat Clear Calc Estimated GFR Random Glucose (60-115) mg/dL Calcium (8.4-10.2) mg/dL Magnesium (1.6-2.6) mg/dL Urine Color Yellow Urine Appearance Clear Urine pH 8.5 H (5.0-8.0) Ur Specific [place] 1.010 (1.005-1.025) Urine Protein 30 (1+) H (Neg-Trace) mg/dL Urine Glucose (UA) Negative (Negative) mg/dL Urine Ketones Negative (Negative) mg/dL Urine Blood Negative (Negative) Urine Nitrite Positive H (Negative) Ur Leukocyte Esterase Trace H (Negative) Urine RBC 0-2 (0-2) /HPF Urine WBC 0-5 (0-5) /HPF Ur Squamous Epith Cells 0-2 (0-2) /HPF Urine Bacteria 4+ (None Seen) Hyaline Casts 0-2 (0-2) /LPF COVID-19 (PHYLLIS) Negative (Negative) COVID-19 Clin Com See Note 02/19/22 Range/Units 13:40 WBC (4.8-10.8) X10*3/uL RBC (4.20-5.50) X10*6/uL Hgb (12.0-16.0) g/dl Hct (37.0-47.0) % MCV (80.0-98.0) fL MCH (27.0-33.0) pg MCHC (31.0-35.0) g/dl RDW (11.0-16.0) % Plt Count (160-400) X10*3/uL MPV (9.4-12.3) fL Immature Gran % (Auto) (0.0-0.4) % Neut % (Auto) (45-73) % Lymph % (Auto) (20-40) % Pershing % (Auto) (2-11) % Eos % (Auto) (0-4) % Baso % (Auto) (0-2) % Lymph # (Auto) (1.2-4.9) X10*3/uL Pershing # (Auto) (0.1-1.2) X10*3/uL Eos # (Auto) (0.0-0.4) X10*3/uL Baso # (Auto) (0.0-0.2) X10*3/uL Abs Immat Gran (auto) (0.00-0.03) X10*3/uL Absolute Neuts (auto) (2.0-8.3) x10*3/uL Absolute Nucleated RBC (0.0-0.012) X10*3/uL Nucleated RBC % (auto) (0.0-0.2) /100WBC Sodium 141 (135-145) mmol/L Potassium 4.5 (3.3-5.1) mmol/L Chloride 101 (96-108) mmol/L Carbon Dioxide 28 (22-29) mmol/L Anion Gap 17 (12-20) BUN 21 H (9-16) mg/dL Creatinine 1.90 H (0.5-1.4) mg/dL Estim Creat Clear Calc 21.8 Estimated GFR 26 Random Glucose 150 H (60-115) mg/dL Calcium 9.4 (8.4-10.2) mg/dL Magnesium 2.2 (1.6-2.6) mg/dL Urine Color Urine Appearance Urine pH (5.0-8.0) Ur Specific [place] (1.005-1.025) Urine Protein (Neg-Trace) mg/dL Urine Glucose (UA) (Negative) mg/dL Urine Ketones (Negative) mg/dL Urine Blood (Negative) Urine Nitrite (Negative) Ur Leukocyte Esterase (Negative) Urine RBC (0-2) /HPF Urine WBC (0-5) /HPF Ur Squamous Epith Cells (0-2) /HPF Urine Bacteria (None Seen) Hyaline Casts (0-2) /LPF COVID-19 (PHYLLIS) (Negative) COVID-19 Clin Com Discharge Plan Discharge Clinical Impression: Acute UTI Dementia Qualifiers: Dementia type: unspecified type Dementia behavioral disturbance: with behavioral disturbance Qualified Code(s): F03.91 - Unspecified dementia with behavioral disturbance Patient Disposition: Still a Patient Prescriptions: No Action amlodipine 5 mg tablet 5 mg PO DAILY 90 Days Qty: 90 3RF thiamine HCl (vitamin B1) 100 mg tablet 50 mg PO DAILY 90 Days Qty: 45 1RF Ensure Liquid 1 ea PO BID 30 Days Qty: 3792 6RF famotidine 20 mg tablet 20 mg PO BEDTIME rosuvastatin 10 mg tablet 10 mg PO DAILY metoprolol tartrate 50 mg tablet 75 mg PO BID Protocol: Hold for SBP/HR < HOLD for SBP < : 90 HOLD for HR < : 60 acetaminophen 325 mg Tablet 325 mg PO QID PRN (Reason: Pain) allopurinol 100 mg tablet 100 mg PO DAILY calcitriol 0.25 mcg capsule 0.25 mcg PO Q48H quetiapine 25 mg tablet 12.5 mg PO DAILY PRN (Reason: psychotic ) Qty: 90 0RF Eliquis 2.5 mg tablet 2.5 mg PO BID 90 Days Qty: 180 4RF
[2022-02-19 07:10] VITALS: BP 116/70; PULSE 98; O2SAT 94
[2022-02-19 07:40] VITALS: BMI 23.0
[2022-02-19 07:47] VITALS: BP 111/65; PULSE 99; RESP 16; O2SAT 99
[2022-02-19 08:51] VITALS: BP 131/80; PULSE 117; RESP 17; O2SAT 97
[2022-02-19 09:30] LABS: Appearance Urine Clear; Color Urine Yellow; Glucose Urine UA Negative (Negative); Leukocyte Esterase Urine Trace (Negative); Nitrite Urine Positive (Negative); PH 8.5 (5.0-8.0); Urine Blood Negative (Negative); Urine Ketones Negative (Negative); Urine Protein 30 (1+) mg/dL (Neg-Trace)
--- NOTE | 2022-02-19 09:33 | PHA.MEDREC ---
Pharmacy Consult ? Medication Reconciliation Pharmacy has completed the medication reconciliation. Patient was poor historian of medications. Was here on 02/16/22 and a med rec was also completed then with patient's spouse who confirmed meds and brought a list as well. Patient cannot recall last time meds were taken.
[2022-02-19 09:35] LABS: Bacteria Urine 4+ (None Seen); Hyaline Casts Urine 0-2 /LPF (0-2); RBC Urine 0-2 /HPF (0-2); Squamous Epithelial Cell Urine 0-2 /HPF (0-2); UACC Culture Trigger YES; WBC Urine 0-5 /HPF (0-5)
[2022-02-19 12:15] LABS: COVID-19 Test Negative (Negative); IDNOW Serial# 16C4AD1C
[2022-02-19 13:43] LABS: MANUAL DIFF FLAG NO
[2022-02-19 13:45] LABS: Basophils Absolute Auto 0.1 X10*3/uL (0.0-0.2); Basophils Percent Auto 0.9 % (0-2); Eosinophils Absolute Auto 0.3 X10*3/uL (0.0-0.4); Eosinophils Percent Auto 4.8 % (0-4); Hematocrit 43.5 % (37.0-47.0); Hemoglobin 13.9 g/dl (12.0-16.0); Imm Gran Abs Auto 0.01 X10*3/uL (0.00-0.03); Imm Gran Pct Auto 0.2 % (0.0-0.4); Lymphocytes Absolute Auto 1.8 X10*3/uL (1.2-4.9); Lymphocytes Percent Auto 31.6 % (20-40); Mean Platelet Volume 11.6 fL (9.4-12.3); Monocytes Absolute Auto 0.5 X10*3/uL (0.1-1.2); Monocytes Percent Auto 8.3 % (2-11); Neutrophils Absolute Auto 3.1 x10*3/uL (2.0-8.3); Neutrophils Percent Auto 54.2 % (45-73); Platelet Count 175 X10*3/uL (160-400); Red Blood Count 4.63 X10*6/uL (4.20-5.50); Red Cell Distribution Width 16.2 % (11.0-16.0); White Blood Count 5.6 X10*3/uL (4.8-10.8)
--- NOTE | 2022-02-19 13:57 | MHC.CM.ED ---
Received case management consult from Dr Khan. Patient came to the ER due to confusion and increasing dementia behaviors. Patient is well known to case management. Patient was at [facility] until 01/29. Patient was discharged home with . Fatoumata states patient was doing well at [facility] because she could pace all night long. Patient came home and is now experiencing increased dementia issues, including insomnia and pacing at night. Tana doesn't feel he can safely care for patient at this time and is requesting referral to [facility]. Referral made via [facility]. [facility] is willing to offer a bed but is requesting MDS be sent to [facility]. MDS completed and faxed. MDS also sent to [facility]. Continue to monitor for d/c needs.
[2022-02-19 14:03] LABS: Anion Gap 17 (12-20); Blood Urea Nitrogen 21 mg/dL (9-16); Calcium 9.4 mg/dL (8.4-10.2); Carbon Dioxide 28 mmol/L (22-29); Chloride 101 mmol/L (96-108); Creatinine Clr Calc Pharmacy 21.8; Estimated Glomerular Filt Rate 26; Glucose Random 150 mg/dL (60-115); Magnesium 2.2 mg/dL (1.6-2.6); Potassium 4.5 mmol/L (3.3-5.1); Sodium 141 mmol/L (135-145)
[2022-02-19 14:57] VITALS: BP 132/84; PULSE 73; RESP 12; TEMP 36.5; O2SAT 98
[2022-02-19] MEDS: QUEtiapine Fumarate 25 MG TABLET 12.5 MG PO (15:57)
--- NOTE | 2022-02-19 16:11 | PC.NURSE ---
pt agitated, walking around ED w 1:1, medicated w seroquel - given in pudding, unable to medicate pt w abx - will try again when pt settles.
--- NOTE | 2022-02-19 17:06 | MHC.CM.ED ---
Awaiting level 2 exemption level. Has bed at [facility]. HCP has been invoked by Dr. Hubert Jessica. [facility] aware. CM to follow for d/c needs.
[2022-02-19] MEDS: LORazepam 1 MG TABLET PO (20:49)
[2022-02-19] MEDS: Metoprolol Tartrate 25 MG TABLET 75 MG PO (20:49)
[2022-02-19] MEDS: Famotidine 20 MG TABLET PO (20:49)
[2022-02-19] MEDS: Apixaban 2.5 MG TABLET PO (20:49)
[2022-02-19 20:56] VITALS: BP 134/65; PULSE 112
--- NOTE | 2022-02-19 22:59 | PC.NURSE ---
pt sleeping in hallway recliner, RR even and unlabored.
[2022-02-19 23:57] VITALS: BP 120/62; PULSE 92; RESP 16; TEMP 36.6; O2SAT 98
--- NOTE | 2022-02-20 08:50 | MHC.CM.PN ---
PT CONTINUES TO WAIT IN ED FOR ALF PLACEMENT. PT WITH BASELINE DEMENTIA, EXHIBITING NO BEHAVIORS AND APPEARS TO HAVE NO PSYCH NEEDS AT THIS TIME. PT ALSO NOT EXPRESSING SI OR HI
[2022-02-20] MEDS: allopurinoL 100 MG TABLET PO (11:41)
[2022-02-20] MEDS: Thiamine HCL 100 MG TABLET 50 MG PO (11:41)
[2022-02-20] MEDS: Apixaban 2.5 MG TABLET PO ×2 (11:41→22:14)
[2022-02-20] MEDS: Metoprolol Tartrate 25 MG TABLET 75 MG PO ×2 (11:43→22:15)
[2022-02-20] MEDS: amLODIPine Besylate 5 MG TABLET PO (11:43)
[2022-02-20 11:51] VITALS: BP 105/65; PULSE 120; RESP 16; O2SAT 98
[2022-02-20] MEDS: Famotidine 20 MG TABLET PO (22:14)
[2022-02-20 22:47] VITALS: BP 115/68; PULSE 104; RESP 18; O2SAT 97
[2022-02-21 06:14] VITALS: BP 116/64; PULSE 89; RESP 17; TEMP 36.6; O2SAT 97
--- NOTE | 2022-02-21 06:29 | PC.NURSE ---
Patient slept through the night, medication compliant, no distress observed/reported, elimination intact, appetite decent, patient is + for UTI treated with Ceftin 250 mg BID, patient is a case management case, pending placement, VSS, patient is 1:1 for safety observation, will continue to monitor.
--- NOTE | 2022-02-21 07:20 | PC.NURSE ---
patient appears to be resting in milieu seated in chair maintains safe behavior at present patient appears in no distress, non verbal at present.
[2022-02-21] MEDS: allopurinoL 100 MG TABLET PO (09:31)
[2022-02-21] MEDS: amLODIPine Besylate 5 MG TABLET PO (09:31)
[2022-02-21] MEDS: Metoprolol Tartrate 25 MG TABLET 75 MG PO (09:31)
[2022-02-21] MEDS: Apixaban 2.5 MG TABLET PO ×2 (09:32→19:42)
[2022-02-21] MEDS: Thiamine HCL 100 MG TABLET 50 MG PO (09:32)
[2022-02-21 10:26] VITALS: BP 112/72; PULSE 87; RESP 16; TEMP 36.6; O2SAT 96
--- NOTE | 2022-02-21 12:51 | MHC.CM.PN ---
[facility] OFFERING A BED PENDING LEVEL 2 EXEMPTION LETTER THEY REQUESTED UPDATES THIS MORNING WHICH WERE PROVIDED CM WAITING FOR THEM TO CONFIRM THEY ARE READY TO ACCEPT PT BLS TRANSPORT BOOKED ON HOLD
--- NOTE | 2022-02-21 15:06 | PC.NURSE ---
DANAE met with patient and her . Patient was sitting and watching TV. When FINK approached patient she became very agitated and anxious. Patient began pacing. DANAE asked her if there were any activities I could provide for patient or if she had any interests to which he replied no. FINK advised patients to ask for her if there was anything he could think of.
[2022-02-21] MEDS: QUEtiapine Fumarate 25 MG TABLET 12.5 MG PO (15:26)
[2022-02-21 15:49] VITALS: BP 152/77; PULSE 101; RESP 16; TEMP 36.3; O2SAT 98
[2022-02-21] MEDS: calcitrioL 0.25 MCG CAPSULE PO (19:42)
[2022-02-21] MEDS: Famotidine 20 MG TABLET PO (19:42)
--- NOTE | 2022-02-22 05:55 | PC.NURSE ---
Patient slept through the night, medication compliant, no distress observed/reported, elimination intact, appetite decent, patient is + for UTI treated with Ceftin 250 mg BID, patient is a case management case/pending placement, VSS, patient is 1:1 for safety observation, will continue to monitor.
--- NOTE | 2022-02-22 07:09 | PC.NURSE ---
patient appears to remain at rest at present respirations are even and unlabored patient appears in nop distress
[2022-02-22 10:05] VITALS: BP 97/70; PULSE 80; RESP 16; TEMP 37; O2SAT 98
[2022-02-22] MEDS: amLODIPine Besylate 5 MG TABLET PO (10:07)
[2022-02-22] MEDS: Thiamine HCL 100 MG TABLET 50 MG PO (10:07)
[2022-02-22] MEDS: allopurinoL 100 MG TABLET PO (10:07)
[2022-02-22] MEDS: Apixaban 2.5 MG TABLET PO (10:08)
--- NOTE | 2022-02-22 14:07 | PC.NURSE ---
gave nurse to nurse to ada from [facility] where client is headed this afternoon
--- NOTE | 2022-02-22 17:03 | PC.NURSE ---
CALL OUT TO [phone] FOR AN ETA ON TRANSPORT TO [facility], [facility] WILL BE HERE BY [phone]
--- NOTE | 2022-02-22 18:01 | PC.NURSE ---
called clients in anticipation that might get client on phone gave him update about delayed departure. clients wanted me to convey she probably would start speaking philipino so did not approach client in an attempt to have them talk. did convey to client verbally he would come tomorrow and that her clothes were already at facility.
== END 2022-02-22 20:09 | disposition skilled nursing facility (03) ==
PROVIDERS: Emergency Provider Emergency Medicine; PCP Internal Medicine
DX: N39.0 Urinary tract infection, site not specified (principal); F03.91 Unspecified dementia, unspecified severity, with behavioral disturbance; I25.10 Atherosclerotic heart disease of native coronary artery without angina pectoris; Z20.822 Contact with and (suspected) exposure to COVID-19; Z79.899 Other long term (current) drug therapy; Z87.891 Personal history of nicotine dependence
CPT/HCPCS: 80048; 81001; 83735; 85025; 87086; 87088; 87186; 87635; 99285

== ENCOUNTER → 2024-02-24 10:49 | Outpatient (RCR) | payer MEDICARE, MEDICAID, SELFPAY ==
[2020-05-17 08:08] VITALS: BP 116/56; PULSE 77; RESP 18; TEMP 36.2; O2SAT 98; BMI 18.6
== END | disposition home or self-care (01) ==
LOC: HO.ONC 05-17 07:18
PROVIDERS: PCP Internal Medicine; Visit Provider Internal Medicine Medical Oncology
DX: Z45.2 Encounter for adjustment and management of vascular access device (principal); C18.9 Malignant neoplasm of colon, unspecified
CPT/HCPCS: 96523; J1642